=== PATIENT | male | born 1955 | race Caucasian/White ===

== ENCOUNTER 2020-01-17 07:21 | Outpatient (REF) | payer OTHER, SELFPAY ==
--- NOTE | 2020-01-17 07:33 | XR_ITS ---
EXAMINATION: XR KNEE STANDING, BILATERAL XR KNEE, RIGHT CLINICAL INFORMATION: Right knee pain. COMPARISON: AP bilateral knee and right knee 08/26/2019 TECHNIQUE: AP standing bilateral knee 1 view. Right knee 2 views. FINDINGS: AP BILATERAL KNEE: There is a total bilateral arthroplasty with prosthetic components in satisfactory alignment. No prosthetic loosening seen. There are no loose bodies or soft tissue swelling. RIGHT KNEE: There is a total right knee arthroplasty in satisfactory alignment. No prosthetic loosening, joint effusion or loose body seen. There is minimal superficial infrapatellar soft tissue swelling. XR/XR knee standing BI IMPRESSION: Total bilateral knee arthroplasty with prosthetic components in satisfactory alignment. The right knee prosthesis is in satisfactory alignment. There is minimal superficial infrapatellar soft tissue swelling but no suspicion for joint effusion or loose bodies.
--- NOTE | 2020-01-17 07:33 | XR_ITS ---
EXAMINATION: XR KNEE STANDING, BILATERAL XR KNEE, RIGHT CLINICAL INFORMATION: Right knee pain. COMPARISON: AP bilateral knee and right knee 08/26/2019 TECHNIQUE: AP standing bilateral knee 1 view. Right knee 2 views. FINDINGS: AP BILATERAL KNEE: There is a total bilateral arthroplasty with prosthetic components in satisfactory alignment. No prosthetic loosening seen. There are no loose bodies or soft tissue swelling. RIGHT KNEE: There is a total right knee arthroplasty in satisfactory alignment. No prosthetic loosening, joint effusion or loose body seen. There is minimal superficial infrapatellar soft tissue swelling. XR/XR knee RT 2V IMPRESSION: Total bilateral knee arthroplasty with prosthetic components in satisfactory alignment. The right knee prosthesis is in satisfactory alignment. There is minimal superficial infrapatellar soft tissue swelling but no suspicion for joint effusion or loose bodies.
== END 2020-01-17 07:22 | disposition home or self-care (01) ==
LOC: HO.XRAY 07:21
PROVIDERS: PCP Family Medicine; Visit Provider Orthopaedic Surgery
DX: M25.561 Pain in right knee (principal)
CPT/HCPCS: 73560; 73565

== ENCOUNTER 2020-05-10 11:19 | Outpatient (REF) | payer OTHER, SELFPAY ==
[2020-05-10 13:43] LABS: MANUAL DIFF FLAG NO
[2020-05-10 13:48] LABS: Basophils Percent Auto 0.4 % (0-2); Eosinophils Absolute Auto 0.1 X10*3/uL (0.0-0.4); Eosinophils Percent Auto 1.5 % (0-4); Hematocrit 41.2 % (42-52); Hemoglobin 13.6 g/dl (14.0-18.0); Imm Gran Abs Auto 0.02 X10*3/uL (0.00-0.03); Imm Gran Pct Auto 0.3 % (0.0-0.4); Lymphocytes Percent Auto 13.2 % (20-40); Mean Corpuscular Hemoglobin 30.5 pg (27.0-33.0); Mean Corpuscular Volume 92.4 fL (80-98); Mean Platelet Volume 10.5 fL (9.4-12.4); Monocytes Absolute Auto 0.6 X10*3/uL (0.1-1.2); Monocytes Percent Auto 8.8 % (2-11); Neutrophils Absolute Auto 5.4 X10*3/uL (2.0-8.3); Neutrophils Percent Auto 75.8 % (45-73); Platelet Count 228 X10*3/uL (160-400); Red Blood Count 4.46 X10*6/uL (4.60-5.80); Red Cell Distribution Width 13.8 % (11.0-16.0); White Blood Count 7.2 X10*3/uL (4.8-10.8)
[2020-05-10 14:18] LABS: Alanine Aminotransferase 13 U/L (0-40); Aspartate Amino Transferase 24 U/L (5-37)
[2020-05-10 14:35] LABS: Erythrocyte Sedimentation Rate 3 MM/HR (0-15)
== END 2020-05-10 11:20 | disposition home or self-care (01) ==
LOC: HO.10HDL 11:19
PROVIDERS: Absent Provider Orthopaedic Surgery; Visit Provider Family Medicine
DX: E78.00 Pure hypercholesterolemia, unspecified (principal); M25.50 Pain in unspecified joint; Z79.899 Other long term (current) drug therapy
CPT/HCPCS: 36415; 82550; 84450; 84460; 85025; 85652; 86140

== ENCOUNTER 2020-11-09 10:09 | Outpatient (REF) | payer OTHER, SELFPAY ==
[2020-11-09 10:51] LABS: Alanine Aminotransferase 13 U/L (0-40); Aspartate Amino Transferase 19 U/L (5-37); Estimated Glomerular Filt Rate > 60
== END 2020-11-09 10:10 | disposition home or self-care (01) ==
LOC: HO.10HDL 10:09
PROVIDERS: Visit Provider Family Medicine
DX: I10 Essential (primary) hypertension (principal); Z79.899 Other long term (current) drug therapy
CPT/HCPCS: 36415; 82565; 84450; 84460

== ENCOUNTER 2021-12-03 08:16 | Outpatient (REF) | payer MEDICARE, SELFPAY ==
--- NOTE | ~2021-12-03 | XR_ITS ---
EXAMINATION: XR CERVICAL SPINE CLINICAL INFORMATION: Left arm neuropathy COMPARISON: Previous x-ray and MRI of the cervical spine June 2013 TECHNIQUE: 5 views of the cervical spine were obtained. FINDINGS: Bone alignment is normal. No fracture or dislocation is seen. There is degenerative spondylosis and degenerative disc disease at all levels. There is right-sided neuroforaminal narrowing from bony osteophyte from C3-C4 to C7-T1. There is left-sided neuroforaminal narrowing from bony osteophyte from C3-C4 to C6-C7. Prevertebral soft tissues are normal. There is left carotid calcification. XR/XR cervical spine 4V IMPRESSION: Multilevel degenerative changes.
[2021-12-03 08:32] LABS: MANUAL DIFF FLAG NO
[2021-12-03 08:55] LABS: Basophils Percent Auto 0.4 % (0-2); Eosinophils Absolute Auto 0.1 X10*3/uL (0.0-0.4); Hematocrit 43.7 % (42.0-52.0); Hemoglobin 14.7 g/dl (14.0-18.0); Imm Gran Abs Auto 0.03 X10*3/uL (0.00-0.03); Imm Gran Pct Auto 0.6 % (0.0-0.4); Lymphocytes Percent Auto 18.4 % (20-40); Mean Corpuscular HGB Conc 33.6 g/dl (31.0-36.0); Mean Corpuscular Hemoglobin 31.5 pg (27.0-33.0); Mean Corpuscular Volume 93.8 fL (80.0-98.0); Mean Platelet Volume 10.6 fL (9.4-12.4); Monocytes Absolute Auto 0.4 X10*3/uL (0.1-1.2); Monocytes Percent Auto 7.3 % (2-11); Neutrophils Absolute Auto 3.8 x10*3/uL (2.0-8.3); Neutrophils Percent Auto 71.3 % (45-73); Platelet Count 196 X10*3/uL (160-400); Red Blood Count 4.66 X10*6/uL (4.60-5.80); Red Cell Distribution Width 13.5 % (11.0-16.0); White Blood Count 5.4 X10*3/uL (4.8-10.8)
[2021-12-03 09:19] LABS: Alanine Aminotransferase 19 U/L (0-40); Albumin Level 4.2 g/dL (3.5-5.0); Alkaline Phosphatase 73 U/L (39-117); Anion Gap 13 (12-20); Aspartate Amino Transferase 24 U/L (5-37); Bilirubin Total 0.7 mg/dL (0.0-1.0); Blood Urea Nitrogen 19 mg/dL (9-16); Calcium 8.9 mg/dL (8.4-10.2); Carbon Dioxide 26 mmol/L (22-29); Chloride 103 mmol/L (96-108); Cholesterol 159 mg/dL; Estimated Glomerular Filt Rate > 60; Glucose Fasting 110 mg/dL (60-99); HDL Cholesterol 62 mg/dL; LDL Cholesterol Calculated 86 mg/dl; Potassium 4.3 mmol/L (3.3-5.1); Sodium 138 mmol/L (135-145); Total Protein 6.4 g/dL (6.5-8.0); Triglycerides 57 mg/dL
== END 2021-12-03 08:17 | disposition home or self-care (01) ==
LOC: HO.LAB 08:16
PROVIDERS: PCP Family Medicine; Visit Provider Family Medicine
DX: G62.9 Polyneuropathy, unspecified (principal); E78.00 Pure hypercholesterolemia, unspecified; R42 Dizziness and giddiness; Z12.5 Encounter for screening for malignant neoplasm of prostate; Z79.899 Other long term (current) drug therapy
CPT/HCPCS: 36415; 72050; 80053; 80061; 84153; 85025

== ENCOUNTER 2021-12-14 09:37 | Outpatient (REF) | payer MEDICARE, SELFPAY ==
--- NOTE | ~2021-12-14 | XR_ITS ---
EXAMINATION: XR HAND, LEFT CLINICAL INFORMATION: Pain left hand. COMPARISON: None TECHNIQUE: PA, lateral, and oblique views of the left hand. FINDINGS: There is normal bony mineralization. Slight negative ulnar variance. No acute or healing fracture or dislocation or destructive process. Carpus has prominent degenerative changes at the triscaphe joint and mild degenerative changes first carpometacarpal joint. There is subtle widening between the lunate and scaphoid which may suggest ligament tear. There are small erosions between the medial hamate and medial base fifth metacarpal. There are small subchondral cysts involving the triquetrum and the mid carpal navicular. MCP joints show moderate degenerative changes second and third MCP with joint narrowing and osteophytes. There are lesser degenerative changes involving the third finger PIP joint and second DIP joint. XR/XR hand LT min 3V IMPRESSION: 1. Prominent degenerative changes triscaphe joint and lesser 1st CMC. 2. Mild widening between lunate and scaphoid which may suggest ligament tear. 3. Small erosions medial hamate and medial base 5th metacarpal. 4. Degenerative changes second and third MCP joints. Mild degenerative changes first carpometacarpal joint.
== END 2021-12-14 09:38 | disposition home or self-care (01) ==
LOC: HO.XRAY 09:37
PROVIDERS: PCP Family Medicine; Visit Provider Family Medicine
DX: M79.642 Pain in left hand (principal)
CPT/HCPCS: 73130

== ENCOUNTER 2022-02-13 07:29 | Outpatient (REF) | payer MEDICARE, SELFPAY ==
[2022-02-13 08:27] LABS: COVID-19 Test Negative (Negative); IDNOW Serial# BCCEAD1C
== END 2022-02-13 07:30 | disposition home or self-care (01) ==
LOC: HO.LAB 07:29
PROVIDERS: PCP Family Medicine; Referring Provider Family Medicine; Visit Provider Internal Medicine
DX: Z20.822 Contact with and (suspected) exposure to COVID-19 (principal)
CPT/HCPCS: 87635; C9803

== ENCOUNTER 2022-02-13 09:19 | Outpatient (REF) | payer MEDICARE, SELFPAY ==
--- NOTE | ~2022-02-13 | XR_ITS ---
EXAMINATION: XR WRIST, RIGHT CLINICAL INFORMATION: Right wrist pain distal ulna after injury. COMPARISON: None TECHNIQUE: PA, lateral, and oblique views of the right wrist. FINDINGS: The bones and soft tissues are normal. No fracture. There is loss of first carpometacarpal joint space with periarticular spurring. No bony erosive changes. No loose bodies.. No erosions or abnormal soft tissue calcifications. XR/XR wrist RT min 3V IMPRESSION: Mild degenerative changes first carpometacarpal joint. No visible acute fracture, dislocation or subluxation seen.
== END 2022-02-13 09:20 | disposition home or self-care (01) ==
LOC: HO.XRAY 09:19
PROVIDERS: PCP Family Medicine; Visit Provider Family Medicine
DX: S69.91XD Unspecified injury of right wrist, hand and finger(s), subsequent encounter (principal)
CPT/HCPCS: 73110

== ENCOUNTER 2022-12-04 06:24 | Outpatient (REF) | payer MEDICARE, SELFPAY ==
[2022-12-04 06:37] LABS: MANUAL DIFF FLAG NO
[2022-12-04 07:02] LABS: Basophils Percent Auto 0.6 % (0-2); Eosinophils Absolute Auto 0.2 X10*3/uL (0.0-0.4); Eosinophils Percent Auto 2.8 % (0-4); Hematocrit 43.3 % (42.0-52.0); Hemoglobin 14.6 g/dl (14.0-18.0); Imm Gran Abs Auto 0.04 X10*3/uL (0.00-0.03); Imm Gran Pct Auto 0.6 % (0.0-0.4); Lymphocytes Absolute Auto 1.1 X10*3/uL (1.2-4.9); Mean Corpuscular HGB Conc 33.7 g/dl (31.0-36.0); Mean Corpuscular Hemoglobin 32.4 pg (27.0-33.0); Mean Platelet Volume 9.9 fL (9.4-12.4); Monocytes Absolute Auto 0.6 X10*3/uL (0.1-1.2); Monocytes Percent Auto 8.9 % (2-11); Neutrophils Absolute Auto 4.7 x10*3/uL (2.0-8.3); Neutrophils Percent Auto 70.1 % (45-73); Platelet Count 233 X10*3/uL (160-400); Red Blood Count 4.51 X10*6/uL (4.60-5.80); Red Cell Distribution Width 14.5 % (11.0-16.0); White Blood Count 6.7 X10*3/uL (4.8-10.8)
[2022-12-04 07:07] LABS: Estimated Average Glucose 100 mg/dL; Hemoglobin A1c % 5.1 % (<6.0)
[2022-12-04 07:25] LABS: Alanine Aminotransferase 24 U/L (0-40); Alkaline Phosphatase 80 U/L (39-117); Anion Gap 12 (12-20); Aspartate Amino Transferase 25 U/L (5-37); Bilirubin Total 0.4 mg/dL (0.0-1.0); Blood Urea Nitrogen 20 mg/dL (9-16); Calcium 9.4 mg/dL (8.4-10.2); Carbon Dioxide 26 mmol/L (22-29); Chloride 106 mmol/L (96-108); Estimated Glomerular Filt Rate > 60; Glucose Fasting 109 mg/dL (60-99); Sodium 139 mmol/L (135-145); Total Protein 6.3 g/dL (6.5-8.0)
[2022-12-04 07:32] LABS: Free T4 (Free Thyroxine) 1.04 ng/dL (0.71-1.85); Thyroid Stimulating Hormone 1.37 uIU/mL (0.32-4.0)
[2022-12-04 07:42] LABS: Erythrocyte Sedimentation Rate 1 MM/HR (0-15)
[2022-12-04 09:22] LABS: Appearance Urine Clear; Color Urine Yellow; Glucose Urine UA Negative (Negative); Leukocyte Esterase Urine Negative (Negative); Nitrite Urine Negative (Negative); Urine Blood Negative (Negative); Urine Ketones Negative (Negative); Urine Protein Negative (Neg-Trace)
== END 2022-12-04 06:25 | disposition home or self-care (01) ==
LOC: HO.LAB 06:24
PROVIDERS: PCP Family Medicine; Visit Provider Family Medicine
DX: R63.4 Abnormal weight loss (principal); R53.83 Other fatigue; E78.00 Pure hypercholesterolemia, unspecified; Z79.899 Other long term (current) drug therapy
CPT/HCPCS: 36415; 80053; 81003; 82550; 83036; 84439; 84443; 85025; 85652

== ENCOUNTER 2022-12-19 14:57 | Outpatient (AMB) | payer MEDICARE, SELFPAY ==
--- NOTE | 2022-12-19 14:59 | A.OFFVIS_ITS ---
Intake Vital Signs 12/19/22 15:05 Height 5 ft 10 in Weight 164 lb BMI 23.5 BP 104/63 Blood Pressure Location Lt brachial Position Sitting Pulse 65 Intake Visit Reasons: left inguinal hernia Intake Note: This patient presents for an assessment for left inguinal hernia. Patient c/o; Onset 12/13/22, reports bulge, reports burning sensation when sitting, reports pain. Sheriff Sergeant Required: No Accompanied by: Self / Same As Patient Allergies penicillin V Allergy (Unknown, Verified 12/19/22 15:03) Unknown Penicillins [PENICILLINS] Allergy (Unknown, Unverified 12/19/22 15:03) UNKNOWN-CHILDHOOD REACTION Medication List - Last Reconciled 12/19/22 by Chas Alva MD celecoxib 400 mg PO DAILY simvastatin 40 mg PO BEDTIME HPI left inguinal hernia HPI Details 67-year-old male referred for a left ing uinal hernia. He says that he was lifting lot of heavy about a week ago and he noted a sudden bowel on the left. He had been noticing a bulge on the area periodically especially with exertion. This is reducible but he does complain of discomfort He says he is familiar with a groin hernia as he had a right hernia repaired almost 20 years ago. He denies GI complaints. He says that he is still very active and plays ice hockey frequently. [facility] Medical History (Updated 12/19/22 @ 15:23 by Chas Alva MD) Left inguinal hernia Arthritis Surgical History History of hernia repair Hx of surgical procedure Social History Alcohol intake: unknown Patient Tobacco Use Status: Tobacco use Unknown Review of Systems Const Denies chills and Denies fever(s) Card Denies chest pain, Denies dyspnea and Denies dyspnea on exertion Resp Denies cough, Denies dyspnea and Denies dyspnea on exertion GI Denies hematochezia and Denies change in bowel habits Denies hematuria and Denies difficulty urinating Musc Denies back pain and Denies limited range of motion Neuro Denies focal weakness and Denies convulsions Psych Denies depression and Denies mood swings Physical Exam Vital Signs: Last Vital Signs Pulse 65 12/19/22 15:05 BP 104/63 12/19/22 15:05 BMI result Body Mass Index 23.5 Const General: comfortable and no acute distress Orientation/consciousness: patient oriented x3 Neck Neck: Yes no lymphadenopathy Resp Auscultation: clear to auscultation bilaterally Cardio Rhythm: regular rhythm GI Other: Reducible left inguinal hernia, more prominent with Valsalva, nontender Palpation (GI): Soft to palpation, nontender and no guarding Neuro General: patient oriented x3 Assessment & Plan Assessment & Plan (1) Left inguinal hernia: Code(s): K40.90 - Unilateral inguinal hernia, without obstruction or gangrene, not specified as recurrent Plan: I reviewed with the technique of repair of the left inguinal hernia with mesh placement. I explained the risks including but not limited to bleeding, infections bowel injury, injury to the vas deferens or the testicle recurrence, postop pain, as well as the benefits and alternatives. I explained to him what to expect postoperatively. He says he understands and wants to proceed. Coding Level of Care Code New Pt Level 3 (81069) Diagnoses Left inguinal hernia K40.90
[2022-12-19 15:05] VITALS: BP 104/63; PULSE 65; BMI 23.5
== END 2022-12-19 15:21 | disposition home or self-care (01) ==
PROVIDERS: PCP Family Medicine; Visit Provider Surgery
DX: K40.90 Unilateral inguinal hernia, without obstruction or gangrene, not specified as recurrent (principal)
CPT/HCPCS: 99203

== ENCOUNTER → 2022-12-19 14:57 | Outpatient (BNVA) | payer MEDICARE, SELFPAY | PROVIDERS: PCP Family Medicine; Visit Provider Surgery | DX: K40.90 Unilateral inguinal hernia, without obstruction or gangrene, not specified as recurrent (principal) | CPT/HCPCS: 99202; J0665; J1100 ==

== ENCOUNTER 2022-12-23 11:31 | Outpatient (AMB) | payer MEDICARE, SELFPAY ==
[2022-12-23 11:41] VITALS: BP 112/66; PULSE 67; BMI 23.5
--- NOTE | 2022-12-23 11:41 | MHC.OFFVIS ---
Intake Vital Signs 12/23/22 11:41 Height 5 ft 10 in Weight 164 lb BMI 23.5 BP 112/66 Blood Pressure Location Lt brachial Position Sitting Pulse 67 Intake Visit Reasons: Rt abdominal pain ? hernia Intake Note: This patient presents for an assessment for right lower inguinal pain. Patient c/o; reports right groin pain, ? hernia. Digital Solution Architect Required: No Accompanied by: Self / Same As Patient Allergies penicillin V Allergy (Unknown, Verified 12/23/22 11:49) Unknown Penicillins [PENICILLINS] Allergy (Unknown, Unverified 12/23/22 11:49) UNKNOWN-CHILDHOOD REACTION Medication List - Last Reconciled 12/23/22 by Chas Alva MD celecoxib 400 mg PO DAILY simvastatin 40 mg PO BEDTIME HPI Rt abdominal pain ? hernia HPI Details He is scheduled for repair of a left inguinal hernia in 1 month. I had just seen him last week for this. He says that 2 days ago, he had noticed some pain on suprapubic area as well along as right groin. He wanted to make sure that he did not have hernia on the right side to call the office this morning this checked. He denies any palpable mass on the right groin. He does have a history of a right inguinal hernia repair in 2003. [facility] Medical History (Updated 12/23/22 @ 12:00 by Chas Alva MD) Right groin pain Left inguinal hernia Arthritis Surgical History History of hernia repair Hx of surgical procedure Social History Alcohol intake: unknown Patient Tobacco Use Status: Tobacco use Unknown Review of Systems Const Denies chills and Denies fever(s) Card Denies chest pain, Denies dyspnea and Denies dyspnea on exertion Resp Denies cough, Denies dyspnea and Denies dyspnea on exertion GI Denies hematochezia and Denies change in bowel habits Denies hematuria and Denies difficulty urinating Musc Denies back pain and Denies limited range of motion Neuro Denies focal weakness and Denies convulsions Psych Denies depression and Denies mood swings Physical Exam Vital Signs: Last Vital Signs Pulse 67 12/23/22 11:41 BP 112/66 12/23/22 11:41 BMI result Body Mass Index 23.5 Const General: comfortable and no acute distress Resp Effort & Inspection: normal respiratory effort Cardio Rate: regular rate GI Other: Soft, no palpable mass on the right groin even with Valsalva. Reducible mass on the left groin Assessment & Plan Assessment & Plan (1) Right groin pain: Code(s): R10.31 - Right lower quadrant pain Plan: Current exam does not reveal any palpable mass even with Valsalva. I told him that his right groin pain and suprapubic pain may be an extension office on the left groin with this large reducible inguinal hernia. We will proceed with left inguinal hernia repair. I did tell him that we will continue to monitor groin as well down the line. Coding Level of Care Code Est Pt Level 2 (71745) Diagnoses Right groin pain R10.31
== END 2022-12-23 11:57 | disposition home or self-care (01) ==
PROVIDERS: PCP Family Medicine; Visit Provider Surgery
DX: R10.31 Right lower quadrant pain (principal)
CPT/HCPCS: 99212

== ENCOUNTER → 2022-12-23 11:31 | Outpatient (BNVA) | payer MEDICARE, SELFPAY | PROVIDERS: PCP Family Medicine; Visit Provider Surgery | DX: R10.31 Right lower quadrant pain (principal); K40.90 Unilateral inguinal hernia, without obstruction or gangrene, not specified as recurrent | CPT/HCPCS: 99212 ==

== ENCOUNTER 2022-12-31 09:22 | Day surgery (SDC) | payer MEDICARE, SELFPAY ==
[2022-12-27 13:38] VITALS: BMI 23.5
[2022-12-31] MEDS: Lactated Ringers 1,000 ML 100 ML IVCONT (09:39)
[2022-12-31 09:50] VITALS: BP 127/79; PULSE 57; RESP 18; TEMP 36.8; O2SAT 96
--- NOTE | 2022-12-31 10:48 | MHC.SHP ---
Pre-Procedural Eval Section A Date of Service: 12/31/22 The patient is an INPATIENT: No Changes since office visit: No Cold of Flu in the past 2 weeks, No New Medical Problems, No Changes in Medication and No Patient answered all questions The History & Physical has been completed within 30 days and I have reviewed it.: Yes Section B Chief Complaint: Unilateral inguinal hernia, without obstruction or Allergies: Allergies Allergy/AdvReac Type Severity Reaction Status Date / Time Penicillins [PENICILLINS] Allergy Unknown UNKNOWN-CHILDHOOD Verified 12/31/22 09:33 REACTION amitriptyline [From Elavil] AdvReac Intermediate Drowsy Verified 12/31/22 09:33 Plan I have reviewed the history and physical and performed a pertinent physical examination on my patient. No changes have occurred unless specified. Time Spent With Patient Time: Total time managing care of this patient today ____ minutes.
--- NOTE | 2022-12-31 10:55 | P.CONAN_ITS ---
Documented by User: Kaitlin Bullock NP 12/30/22 09:19 HPI - Anesthesia Eval Consult details Narrative: 67yo M for Left Open Hernia Repair Inguinal w/mesh PMFSH Active Problems Active Problems: All Active Problems (Updated 12/27/22 @ 13:38 by Sheila Monroy RN) Right groin pain (Acute) Left inguinal hernia (Acute) Arthritis (Acute) Past Medical History Medical History PVC (premature ventricular contraction) Tremor Eczema Osteoarthritis Cervical radiculopathy Chronic back pain Elevated cholesterol Right groin pain Left inguinal hernia Arthritis Surgical History Surgical History Hx of total knee arthroplasty History of surgery Hx of carpal tunnel repair Hx of shoulder surgery Hx of arthroscopic knee surgery H/O colonoscopy History of hernia repair Social History Social History Alcohol intake: unknown Patient Tobacco Use Status: Never used Tobacco Are you DNR?: No Advance Directives: No Advance Directives Information Provided: Yes Nutrition Risks: No Nutritional Risk Meds Allergies Allergy/AdvReac Type Severity Reaction Status Date / Time Penicillins [PENICILLINS] Allergy Unknown UNKNOWN-CHILDHOOD Verified 12/31/22 09:33 REACTION amitriptyline [From Elavil] AdvReac Intermediate Drowsy Verified 12/31/22 09:33 Home Medications Medication Instructions Recorded Confirmed Last Taken Type celecoxib 400 mg capsule 400 mg PO DAILY 12/19/22 12/27/22 Unknown History simvastatin 40 mg tablet 40 mg PO BEDTIME 12/19/22 12/27/22 Unknown History Exam Exam Date and Time: December 30, 2022 0918 Height,Weight and Vital Signs: Height 5 ft 10 in Weight 74.389 kg Pertinent Lab Results Pertinent Lab Results: Laboratory Tests 12/04/22 06:36 WBC 6.7 Hgb 14.6 Hct 43.3 Plt Count 233 Sodium 139 Potassium 5.0 Chloride 106 Carbon Dioxide 26 BUN 20 H Creatinine 0.82 Assessment and Plan Assessment Anesthesia Assessment: Chart Reviewed Documented by User: Rebekah Alfaro DO 12/31/22 11:00 [facility] Past Medical History Medical History PVC (premature ventricular contraction) Tremor Eczema Osteoarthritis Cervical radiculopathy Chronic back pain Elevated cholesterol Right groin pain Left inguinal hernia Arthritis Family History Family history of problems with anesthesia: No Surgical History Surgical History Hx of total knee arthroplasty History of surgery Hx of carpal tunnel repair Hx of shoulder surgery Hx of arthroscopic knee surgery H/O colonoscopy History of hernia repair History of Problems with Anesthesia: No Social History Social History Alcohol intake: unknown Patient Tobacco Use Status: Never used Tobacco Are you DNR?: No Advance Directives: No Advance Directives Information Provided: Yes Nutrition Risks: No Nutritional Risk Meds Allergies Allergy/AdvReac Type Severity Reaction Status Date / Time Penicillins [PENICILLINS] Allergy Unknown UNKNOWN-CHILDHOOD Verified 12/31/22 09:33 REACTION amitriptyline [From Elavil] AdvReac Intermediate Drowsy Verified 12/31/22 09:33 Home Medications Medication Instructions Recorded Confirmed Last Taken Type celecoxib 400 mg capsule 400 mg PO DAILY 12/19/22 12/27/22 Unknown History simvastatin 40 mg tablet 40 mg PO BEDTIME 12/19/22 12/27/22 Unknown History Exam Exam Date and Time: December 31, 2022 1057 Height,Weight and Vital Signs: Height 5 ft 10 in Weight 74.389 kg Vital Signs Temperature 98.2 F 12/31/22 09:50 Pulse Rate 57 12/31/22 09:50 Respiratory Rate 18 12/31/22 09:50 Blood Pressure 127/79 12/31/22 09:50 Pulse Oximetry 96 12/31/22 09:50 Oxygen Delivery Method Room Air 12/31/22 09:50 Temperature 98.2 F 12/31/22 09:50 Pulse Rate 57 12/31/22 09:50 Respiratory Rate 18 12/31/22 09:50 Blood Pressure 127/79 12/31/22 09:50 Pulse Oximetry 96 12/31/22 09:50 Oxygen Delivery Method Room Air 12/31/22 09:50 Airway Mallampati Class: I TM Dist: >3cm Neck ROM: Full Loose/Missing/Broken Teeth: No (patient denies) Heart: S1S2 Lungs: CTAB Assessment and Plan Assessment Anesthesia Assessment: Anesthesia Plan Discussed and Chart Reviewed Final Anesthetic Review Family History of Problems with Anesthesia: No History of Problems with Anesthesia: No NPO: Yes ASA Class: II Final Preanesthetic Review: No Changes in Pt Med Stat, Meds/Allgs Chart Reviewed, Consent Obtained/Reviewed and Anes Risks/Benef Reviewed Patient Risk: Low Procedure Risk: Low Anesthetic Plan Anesthetic Plan: GA and Agree w/ Assess. and Plan Disposition: Standard PACU
--- NOTE | 2022-12-31 11:39 | P.OP_ITS ---
Operative Note Operative Note Date of Service: 12/31/22 Narrative: Preop diagnosis: Left inguinal hernia Postop diagnosis: Left inguinal hernia, direct Procedure: Repair of a left inguinal hernia with mesh Surgeon: Chas Alva MD virtual assistant for advertisers: MARTI Patterson The patient is a 67-year-old male with a reducible mass on the left groin consistent with a left inguinal hernia. He understood the technique of repair with mesh. He was aware of the risks, benefits, and alternatives. He was brought to the operating room. He was placed supine under general anesthesia via laryngeal mask airway. The left groin area had been prepped and draped in the usual sterile fashion. A surgical time-out was done. The patient received cefazolin 2 g IV preoperatively. I infiltrated the planned line of incision with lidocaine 1%. I made a short incision on the skin along an imaginary line from the anterior superior iliac spine to the pubic ramus using blade 15. This was carried down through the full- thickness of the skin subcutaneous fat with electr cautery until I was able to see the external oblique aponeurosis and the external ring. I gently defined the external ring using gauze. I made an incision on the axilla oblique but neurosis overlying this inguinal canal using a blade 15 and extended this inferomedially to connect with external ring using an open tipped pair of scissors. I bluntly dissected the underside of the aponeurosis to create space for the mesh. I then proceeded to identify the cord and its contents. I bluntly dissected the cord with my index finger until was able to pass a Lipan drain around this. This Lipan drain was used for retraction. I examined the cord. The sac was seen to be on the floor of the canal itself consistent with a direct hernia. This was easily from the rest of the cord contents. I was able to visualize the vas deferens and the accompanying vessels. I proceeded to gently separate the sac the rest of the cord contents, carefully protecting the vas deferens and its accompanying vessels. I reinforced the Defect on the floor of the canal with a medium-sized Prolene plug. The plug was secured to the shelving edge of the inguinal ligament laterally and the internal oblique superiorly and medially using the inner leaves of the plug. I then reinforced the entire floor of the canal with a keyhole mesh. The tails of the mesh were passed around the cord at the level of the internal ring and were secured together with Prolene 2 sutures. I flattened the mesh. I secured the mesh to the shelving edge of the inguinal meant laterally, and the internal oblique superiorly medially as well as the pubic ramus inferomedially with Prolene 2 sutures. I reirrigated. I observed for hemostasis. Once hemostasis was confirmed, I proceeded to then close the external oblique aponeurosis with a running Polysorb 2-0 stitch to re-create the external ring. The subcutaneous layer was reapposed with Polysorb 3-0 interrupted sutures. Skin closure was achieved with Polysorb 4-0 subcuticular running stitch. The incision was infiltrated with Marcaine 0.5% for postop analgesia. Dressings were applied. The procedure was completed. The patient tolerated the procedure well. There were no immediate complications. Initial and final counts of sponges and instruments were correct. Estimated blood loss was about 10 cc. The patient was extubated without difficulty and transferred to the recovery room with stable vital signs.
[2022-12-31 11:56] VITALS: BP 141/90; PULSE 74; RESP 16; TEMP 36.3; O2SAT 99
[2022-12-31 12:01] VITALS: BP 136/82; PULSE 61; RESP 16; O2SAT 97
[2022-12-31 12:06] VITALS: BP 124/79; PULSE 63; RESP 16; O2SAT 96
[2022-12-31 12:11] VITALS: BP 127/73; PULSE 55; RESP 16; TEMP 36.5; O2SAT 97
[2022-12-31] MEDS: Acetaminophen 325 MG TABLET 650 MG PO (12:17)
[2022-12-31] MEDS: oxyCODONE HCl Immed Release 5 MG TABLET 10 MG PO (12:17)
[2022-12-31 12:26] VITALS: BP 123/78; PULSE 56; RESP 16; TEMP 36.4; O2SAT 96
== END 2022-12-31 13:08 | disposition home or self-care (01) ==
PROVIDERS: PCP Family Medicine; Visit Provider Surgery
PROC: (CPT 49505; principal; 2022-12-31 11:30)
DX: K40.90 Unilateral inguinal hernia, without obstruction or gangrene, not specified as recurrent (principal); G89.29 Other chronic pain; M54.9 Dorsalgia, unspecified; M54.12 Radiculopathy, cervical region; E78.00 Pure hypercholesterolemia, unspecified; R10.31 Right lower quadrant pain; I49.3 Ventricular premature depolarization; R25.1 Tremor, unspecified; M19.90 Unspecified osteoarthritis, unspecified site; Z79.899 Other long term (current) drug therapy; Z88.0 Allergy status to penicillin; Z88.8 Allergy status to other drugs, medicaments and biological substances; Z98.890 Other specified postprocedural states
CPT/HCPCS: 49505; C1781; J0690; J1100; J1885; J2405; J2704; J2795; J3010

== ENCOUNTER → 2022-12-31 09:22 | Outpatient (BNV) | payer MEDICARE, SELFPAY | PROVIDERS: PCP Family Medicine; Visit Provider Surgery | DX: K40.90 Unilateral inguinal hernia, without obstruction or gangrene, not specified as recurrent (principal) | CPT/HCPCS: 49505 ==

== ENCOUNTER 2023-01-04 06:03 | Emergency (ER) | payer MEDICARE, SELFPAY ==
--- NOTE | ~2023-01-04 | CT_ITS ---
EXAMINATION: CT HEAD WITHOUT CONTRAST CLINICAL INFORMATION: Headache COMPARISON: CT head 06/26/2016 TECHNIQUE: Contiguous axial imaging was performed from the skull base to vertex without intravenous administration of contrast. This CT examination was performed using dose optimization techniques as appropriate, variously including the following: *Automated exposure control *Adjustment of mA and/or kV according to patient size (this includes techniques or standardized protocols for targeted exams where dose is matched to indication/reason for exam; i.e. extremities or head) *Use of iterative reconstruction technique DLP: 6 6 6 mGy-cm FINDINGS: There is no evidence of acute intracranial hemorrhage or edematous territorial infarction. No abnormal mass effect or midline shift is seen. [place] to white matter differentiation is well preserved. No extra-axial fluid collections are identified. The ventricles are normal in size. No abnormal attenuation in the brain parenchyma. No acute calvarial fracture.. Redemonstrated is under pneumatization of the right mastoid air cells. Paranasal sinuses and left mastoid air cells are well-aerated. CT/CT head/brain wo IV con IMPRESSION: No CT evidence of acute intracranial hemorrhage or edematous territorial infarction.
[2023-01-04 06:05] VITALS: BP 141/96; PULSE 71; RESP 18; TEMP 36.6; O2SAT 98; BMI 21.7
--- NOTE | 2023-01-04 07:01 | ED_ITS ---
HPI - Nausea/Vomiting/Diarrhea General Chief complaint: Headache Stated complaint: Hernia operation 4 days ago/ pain all over Time Seen by Provider: 01/04/23 07:00 Source: patient Mode of arrival: ambulatory Limitations: no limitations History of Present Illness HPI Narrative: 67 yo male with PMH of arthritis, just had left inguinal hernia repair here on Friday - did well went home on Friday night has no issues with hernia repair feels he is improving stopped taking narcotics on Friday. He notes Friday night however at rest he started with a severe R sided headache. He has not had a fever. He has photophobia n/v. No neck trauma or head trauma. He states this has never happened before. He did have headaches about 5 years ago but not like this. MD elicited complaint: nausea, vomiting and other (headache. ) Onset (ago): day(s) (4) Description of vomiting: watery Associated nausea: Yes Associated abdominal pain: No Location of pain: other (R sided headache) Pain consistency: constant Severity: severe Quality: stabbing Exacerbating factors: other (bright light noise) Context: other (recent surgery ) Associated symptoms: nausea/vomiting and other (photophobia) Related Data Home Medications Medication Instructions Recorded Confirmed celecoxib 400 mg capsule 400 mg PO DAILY 12/19/22 12/27/22 simvastatin 40 mg tablet 40 mg PO BEDTIME 12/19/22 12/27/22 Previous Rx's Medication Instructions Recorded oxycodone-acetaminophen 5 mg-325 1 tab PO Q4-6H PRN pain #30 tabs 12/31/22 mg tablet (Percocet) ondansetron 4 mg disintegrating 4 mg PO Q8H PRN nausea and 01/04/23 tablet vomiting #20 tabs Allergies Allergy/AdvReac Type Severity Reaction Status Date / Time No Known Allergies Allergy Verified 01/04/23 06:13 Review of Systems 2 Review of Systems: Constitutional : No Fever, No Chills, No Fatigue ENT/Mouth : No sore throat, No Rhinorrhea Eyes: pos Eye Pain, No Swelling, No Redness Cardiovascular : No Chest Pain, No SOB, No Dyspnea on Exertion Respiratory : No Cough, No Sputum Gastrointestinal : pos Nausea, pos Vomiting, No Diarrhea, No abdominal Pain Genitourinary : No Dysuria, No Urinary Frequency, No Hematuria, Musculoskeletal : No joint pain, No Myalgias, No Joint Swelling Skin : No Skin Lesions, No rash Neuro : No Weakness, No Numbness, No Dizziness, positive Headache Psych : No Anxiety/Panic, No Depression Heme/Lymph: No Bruising, No Bleeding,No Lymphadenopathy Endocrine : No Polyuria, No Polydipsia All other systems reviewed and are negative Gastrointestinal: Gastrointestinal: Reports nausea PMFSH Past Medical History Attestation statement: The following information was validated with the patient. Source: old records reviewed Medical History PVC (premature ventricular contraction) Tremor Eczema Osteoarthritis Cervical radiculopathy Chronic back pain Elevated cholesterol Right groin pain Left inguinal hernia Arthritis Surgical History Hx of total knee arthroplasty History of surgery Hx of carpal tunnel repair Hx of shoulder surgery Hx of arthroscopic knee surgery H/O colonoscopy History of hernia repair Social History Social History Alcohol intake: unknown Patient Tobacco Use Status: Never used Tobacco Smoked in Last 30 Days: No Use of substances other than those prescribed or required for medical reasons: No Advance Directives: No Advance Directives Information Provided: Yes Physical Exam 2 Vital Signs: Vital Signs: Last Vital Signs Temp 97.9 F 01/04/23 06:05 Pulse 50 01/04/23 10:05 Resp 16 01/04/23 10:05 BP 137/87 01/04/23 10:05 Pulse Ox 98 01/04/23 06:05 O2 Del Method Room Air 01/04/23 06:05 BMI result Body Mass Index 21.7 Appearance: Alert. Oriented X3. No acute distress. Eyes: Pupils equal, round and reactive to light. ENT: Pharynx normal. Neck: Normal inspection. Neck supple. no meningeal signs CVS: Normal heart rate and rhythm. Pulses normal. Respiratory: No respiratory distress. Breath sounds normal. Abdomen: Soft and nontender. incisions c/d/i healing well Skin: Skin warm and dry. Normal skin color. Normal skin turgor. Extremities: No lower extremity edema. No calf ttp Neuro: Oriented X 3. No motor deficit. No sensory deficit. Medications Administered Discontinued Medications Generic Name Dose Route Start Last Admin Trade Name Freq PRN Reason Stop Dose Admin Droperidol 1.25 mg 01/04/23 07:18 01/04/23 09:00 Droperidol 5 Mg/2 Ml Vial IVPUSH 01/04/23 07:19 1.25 mg ONCE ONE Administration Sodium Chloride 1,000 mls @ 999 mls/hr 01/04/23 07:30 01/04/23 09:25 Ns IV 01/04/23 08:30 Infused .Q1H1M CM Infusion Ketorolac Tromethamine 15 mg 01/04/23 09:24 01/04/23 09:59 Ketorolac Tromethamine 15 Mg/Ml Vial IVPUSH 01/04/23 09:25 15 mg ONCE ONE Administration Morphine Sulfate 4 mg 01/04/23 09:24 01/04/23 10:29 Morphine Sulfate 4 Mg/Ml Cartridge IVPUSH 01/04/23 09:25 Not Given ONCE ONE Protocol Medical Decision Making Medical Decision Making [facility] Narrative: 67 yo male with PMH of recent inguinal hernia repair and the night after surgery developed acute R sided headache while at rest - at this time he is neuro intact, no fevers, no blood thinners, no meningeal signs - will obtain basic labs, ESR, CT head to rule out mass - SAH less likely given duration. IVF and medications. Could be related to anesthesia as well. Differential Diagnosis Differential Diagnoses: The differential diagnosis associated with the presentation includes viral syndrome, tension headache, post anesthesia headache, mass Admission/Observation Consideration of admission/observation: Escalation of care including admission/observation considered headache improved, tolerating PO, no ICH, ESR negative, labs reassuring Lab Data [facility] Lab Attestation statement: I reviewed the patient's lab results. 01/04/23 07:50 01/04/23 07:50 Labs: Lab Results 01/04/23 01/04/23 Range/Units 07:45 07:50 WBC 8.0 (4.8-10.8) X10*3/uL RBC 5.19 (4.60-5.80) X10*6/uL Hgb 16.7 (14.0-18.0) g/dl Hct 48.3 (42.0-52.0) % MCV 93.1 (80.0-98.0) fL MCH 32.2 (27.0-33.0) pg MCHC 34.6 (31.0-36.0) g/dl RDW 13.9 (11.0-16.0) % Plt Count 219 (160-400) X10*3/uL MPV 10.0 (9.4-12.4) fL Immature Gran % (Auto) 0.5 H (0.0-0.4) % Neut % (Auto) 79.5 H (45-73) % Lymph % (Auto) 11.7 L (20-40) % [place] % (Auto) 6.9 (2-11) % Eos % (Auto) 1.0 (0-4) % Baso % (Auto) 0.4 (0-2) % Lymph # (Auto) 0.9 L (1.2-4.9) X10*3/uL [place] # (Auto) 0.6 (0.1-1.2) X10*3/uL Eos # (Auto) 0.1 (0.0-0.4) X10*3/uL Baso # (Auto) 0.0 (0.0-0.2) X10*3/uL Abs Immat Gran (auto) 0.04 H (0.00-0.03) X10*3/uL Absolute Neuts (auto) 6.3 (2.0-8.3) x10*3/uL Absolute Nucleated RBC 0.000 (0.0-0.012) X10*3/uL Nucleated RBC % (auto) 0.0 (0.0-0.2) /100WBC ESR 2 (0-15) MM/HR Hold Purple Top SEE NOTE Sodium 141 (135-145) mmol/L Potassium 5.0 (3.3-5.1) mmol/L Chloride 104 (96-108) mmol/L Carbon Dioxide 29 (22-29) mmol/L Anion Gap 13 (12-20) BUN 20 H (9-16) mg/dL Creatinine 0.86 (0.5-1.4) mg/dL Estim Creat Clear Calc 81.8 Estimated GFR > 60 Random Glucose 118 H (60-115) mg/dL Calcium 9.7 (8.4-10.2) mg/dL Total Bilirubin 0.6 (0.0-1.0) mg/dL AST 22 (5-37) U/L ALT 18 (0-40) U/L Alkaline Phosphatase 74 (39-117) U/L Total Protein 7.0 (6.5-8.0) g/dL Albumin 4.2 (3.5-5.0) g/dL COVID-19 (MAX) Negative (Negative) COVID-19 Clin Com See Note Independent Interpretation I performed an independent interpretation of an: CT Scan (no mass or ICH) Radiology Impression Discussion of test interpretation with radiology: I have reviewed the radiologist's reading. External Record Review External record reviewed: Inpatient record Prescription Management I considered prescription management with: Other Discharge Plan Discharge Clinical Impression: Headache Qualifiers: Headache type: unspecified Headache chronicity pattern: acute headache I ntractability: not intractable Qualified Code(s): R51.9 - Headache, unspecified Vomiting Qualifiers: Vomiting type: unspecified Nausea presence: with nausea Qualified Code(s): R 11.2 - Nausea with vomiting, unspecified Patient Disposition: Home, Self-Care Instructions: Acute Headache (ED), Acute Nausea and Vomiting (ED) Additional Instructions: return for worsening abdominal pain, vomiting, fevers, neck pain, confusion, vision changes or any other concerns. Prescriptions: New ondansetron 4 mg tablet,disintegrating 4 mg PO Q8H PRN (Reason: nausea and vomiting) Qty: 20 0RF No Action oxycodone-acetaminophen [Percocet] 5-325 mg tablet 1 tab PO Q4-6H PRN (Reason: pain) Qty: 30 0RF Rx Instructions: Partial Fill upon patient request. simvastatin 40 mg tablet 40 mg PO BEDTIME celecoxib 400 mg capsule 400 mg PO DAILY
[2023-01-04 07:55] LABS: MANUAL DIFF FLAG NO
[2023-01-04 08:03] LABS: Basophils Percent Auto 0.4 % (0-2); Eosinophils Absolute Auto 0.1 X10*3/uL (0.0-0.4); Hematocrit 48.3 % (42.0-52.0); Hemoglobin 16.7 g/dl (14.0-18.0); Imm Gran Abs Auto 0.04 X10*3/uL (0.00-0.03); Imm Gran Pct Auto 0.5 % (0.0-0.4); Lymphocytes Absolute Auto 0.9 X10*3/uL (1.2-4.9); Lymphocytes Percent Auto 11.7 % (20-40); Mean Corpuscular HGB Conc 34.6 g/dl (31.0-36.0); Mean Corpuscular Hemoglobin 32.2 pg (27.0-33.0); Mean Corpuscular Volume 93.1 fL (80.0-98.0); Monocytes Absolute Auto 0.6 X10*3/uL (0.1-1.2); Monocytes Percent Auto 6.9 % (2-11); Neutrophils Absolute Auto 6.3 x10*3/uL (2.0-8.3); Neutrophils Percent Auto 79.5 % (45-73); Platelet Count 219 X10*3/uL (160-400); Red Blood Count 5.19 X10*6/uL (4.60-5.80); Red Cell Distribution Width 13.9 % (11.0-16.0)
[2023-01-04 08:10] LABS: Alanine Aminotransferase 18 U/L (0-40); Albumin Level 4.2 g/dL (3.5-5.0); Alkaline Phosphatase 74 U/L (39-117); Anion Gap 13 (12-20); Aspartate Amino Transferase 22 U/L (5-37); Bilirubin Total 0.6 mg/dL (0.0-1.0); Blood Urea Nitrogen 20 mg/dL (9-16); Calcium 9.7 mg/dL (8.4-10.2); Carbon Dioxide 29 mmol/L (22-29); Chloride 104 mmol/L (96-108); Creatinine Clr Calc Pharmacy 81.8; Estimated Glomerular Filt Rate > 60; Glucose Random 118 mg/dL (60-115); Sodium 141 mmol/L (135-145)
[2023-01-04] MEDS: 0.9 % Sodium Chloride 1,000 ML 999 ML IV (08:19)
[2023-01-04 08:24] LABS: COVID-19 Test Negative (Negative); IDNOW Serial# 08D9AD1C
[2023-01-04 08:52] LABS: Erythrocyte Sedimentation Rate 2 MM/HR (0-15)
[2023-01-04] MEDS: droPERidol 5 MG/2 ML VIAL 1.25 MG IVPUSH (09:00)
--- NOTE | 2023-01-04 09:16 | PC.NURSE ---
assumed care of pt at 0700. pt a&o x4, pleasant, calm, and cooperative. labs drawn and sent by tech. 20G IV placed to RAC. pt medicated per apr. pt given urinal for UA, sts recent hernia repair and having pain with ambulation. rr even/unlabored. pt offers no other complaints karely. call shankar within pt reach. plan of care ongoing.
[2023-01-04] MEDS: Ketorolac Tromethamine 15 MG/ML VIAL IVPUSH (09:59)
[2023-01-04 10:05] VITALS: BP 137/87; PULSE 50; RESP 16
--- NOTE | 2023-01-04 10:37 | PC.NURSE ---
pt refused morphine, sts hx of it making him nauseous/sick. pt given toradol per mar. sts pain relief is enough. MD aware.
== END 2023-01-04 11:15 | disposition home or self-care (01) ==
PROVIDERS: Emergency Provider Emergency Medicine; PCP Family Medicine
DX: R51.9 Headache, unspecified (principal); R11.2 Nausea with vomiting, unspecified; Z11.52 Encounter for screening for COVID-19
CPT/HCPCS: 36415; 70450; 80053; 85025; 85652; 87635; 96361; 96374; 96375; 99284; J1790; J1885

== ENCOUNTER 2023-01-13 09:13 | Outpatient (AMB) | payer MEDICARE, SELFPAY ==
--- NOTE | 2023-01-13 09:14 | MHC.OFFVIS ---
Intake Vital Signs 01/13/23 09:20 Height 5 ft 10 in Weight 167 lb 1.766 oz BMI 24.0 BP 130/82 Blood Pressure Location Lt brachial Position Sitting Intake Visit Reasons: S/P LIH w/mesh Intake Note: Patient is seen in office for post op assessment post left inguinal hernia repair. Pt c/o: admits to sore, denies any other concerns Silk Conditioner Required: No Accompanied by: Self / Same As Patient Allergies No Known Allergies Allergy (Verified 01/13/23 09:15) HPI S/P LIH w/mesh HPI Details He underwent repair of a left inguinal hernia with mesh last 12/31/2022. He tolerated procedure well. He currently denies significant complaints. [facility] Medical History Left inguinal hernia (12/31/22) PVC (premature ventricular contraction) Tremor Eczema Osteoarthritis Cervical radiculopathy Chronic back pain Elevated cholesterol Right groin pain Left inguinal hernia Arthritis Surgical History H/O inguinal hernia repair (12/31/22) Hx of total knee arthroplasty History of surgery Hx of carpal tunnel repair Hx of shoulder surgery Hx of arthroscopic knee surgery H/O colonoscopy History of hernia repair Alcohol intake: unknown Patient Tobacco Use Status: Never used Tobacco Review of Systems Const Denies chills and Denies fever(s) Card Denies chest pain, Denies dyspnea and Denies dyspnea on exertion Resp Denies cough, Denies dyspnea and Denies dyspnea on exertion GI Denies hematochezia and Denies change in bowel habits Denies hematuria and Denies difficulty urinating Musc Denies back pain and Denies limited range of motion Neuro Denies focal weakness and Denies convulsions Psych Denies depression and Denies mood swings Physical Exam Vital Signs: Last Vital Signs BP 130/82 01/13/23 09:20 BMI result Body Mass Index 24.0 Const General: comfortable and no acute distress Resp Effort & Inspection: normal respiratory effort GI Other: Left inguinal hernia repair site well healed, not infected, repair site intact Palpation (GI): Soft to palpation, not firm and nontender Assessment & Plan Assessment & Plan (1) Left inguinal hernia: Code(s): K40.90 - Unilateral inguinal hernia, without obstruction or gangrene, not specified as recurrent Plan: Status post repair with mesh. He is doing very well. The repair site is intact and well healed. I advised him to avoid any lifting more than 20 lb for at least 2 more weeks. He can follow up on a p.r.n. basis. Coding Level of Care Code Global (61930) Diagnoses Left inguinal hernia K40.90
[2023-01-13 09:20] VITALS: BP 130/82; BMI 24.0
== END 2023-01-13 09:25 | disposition home or self-care (01) ==
PROVIDERS: PCP Family Medicine; Visit Provider Surgery
DX: K40.90 Unilateral inguinal hernia, without obstruction or gangrene, not specified as recurrent (principal)
CPT/HCPCS: 99024

== ENCOUNTER → 2023-01-13 09:13 | Outpatient (BNVA) | payer MEDICARE, SELFPAY | PROVIDERS: PCP Family Medicine; Visit Provider Surgery ==

== ENCOUNTER 2023-01-29 08:24 | Outpatient (REF) | payer MEDICARE, SELFPAY ==
[2023-02-07 04:18] LABS: Aldolase 4.3 U/L (<=8.1)
== END 2023-01-29 08:25 | disposition home or self-care (01) ==
LOC: HO.10HDL 08:24
PROVIDERS: Visit Provider Family Medicine
DX: R53.1 Weakness (principal)
CPT/HCPCS: 36415; 82085; 82550

== ENCOUNTER 2023-02-03 09:57 | Outpatient (AMB) | payer MEDICARE, SELFPAY ==
[2023-02-03 10:06] VITALS: BP 120/77; PULSE 65; BMI 24.2
--- NOTE | 2023-02-03 10:06 | A.OFFVIS_ITS ---
Intake Vital Signs 02/03/23 10:06 Height 5 ft 10 in Weight 169 lb BMI 24.2 BP 120/77 Blood Pressure Location Rt brachial Position Sitting Pulse 65 Intake Visit Reasons: s/p LIH repair with mesh, discomfort Intake Note: This patient presents for a post-op follow-up assessment status post left inguinal hernia repair with mesh. Patient c/o; reports soreness surgical site, reports last week coughed and felt a burning sensation. Health Care Liaison Required: No Accompanied by: Self / Same As Patient Allergies No Known Allergies Allergy (Verified 02/03/23 10:15) HPI s/p LIH repair with mesh, discomfort HPI Details He is here for another postop visit. He had left inguinal hernia repair with mesh about 5 weeks ago. He had been doing well. However, he says he has occasional tingling discomfort on the hernia repair site. He is an avid skier and he is planning to go to the slopes in a couple of weeks so he wanted this checked before he goes skiing. He denies any significant pain. He denies any palpable mass. [facility] Medical History Left inguinal hernia (12/31/22) PVC (premature ventricular contraction) Tremor Eczema Osteoarthritis Cervical radiculopathy Chronic back pain Elevated cholesterol Right groin pain Left inguinal hernia Arthritis Surgical History H/O inguinal hernia repair (12/31/22) Hx of total knee arthroplasty History of surgery Hx of carpal tunnel repair Hx of shoulder surgery Hx of arthroscopic knee surgery H/O colonoscopy History of hernia repair Social History Alcohol intake: unknown Patient Tobacco Use Status: Never used Tobacco Review of Systems Const Denies chills and Denies fever(s) Card Denies chest pain, Denies dyspnea and Denies dyspnea on exertion Resp Denies cough, Denies dyspnea and Denies dyspnea on exertion GI Denies hematochezia and Denies change in bowel habits Denies hematuria and Denies difficulty urinating Musc Denies back pain and Denies limited range of motion Neuro Denies focal weakness and Denies convulsions Psych Denies depression and Denies mood swings Physical Exam Vital Signs: Last Vital Signs Pulse 65 02/03/23 10:06 BP 120/77 02/03/23 10:06 BMI result Body Mass Index 24.2 Const General: comfortable and no acute distress Resp Effort & Inspection: normal respiratory effort GI Other: Left inguinal hernia repair site is well healed, no palpable hernias, repair appears intact, no redness or tenderness Assessment & Plan Assessment & Plan (1) Left inguinal hernia: Code(s): K40.90 - Unilateral inguinal hernia, without obstruction or gangrene, not specified as recurrent Plan: Status post repair with mesh. The repair site appears intact. He does not have any obvious infection. I assured him that the tingling pain may occur as part of his normal postop course in view of the presence of mesh and cicatrization. I do not feel any recurrence. He is actually cleared to return to normal level of activities including skiing by next week. He can still follow up on a p.r.n. basis. Coding Level of Care Code Global (33080) Diagnoses Left inguinal hernia K40.90
== END 2023-02-03 10:26 | disposition home or self-care (01) ==
PROVIDERS: PCP Family Medicine; Visit Provider Surgery
DX: K40.90 Unilateral inguinal hernia, without obstruction or gangrene, not specified as recurrent (principal)
CPT/HCPCS: 99024

== ENCOUNTER → 2023-02-03 09:57 | Outpatient (BNVA) | payer MEDICARE, SELFPAY | PROVIDERS: PCP Family Medicine; Visit Provider Surgery | DX: Z48.815 Encounter for surgical aftercare following surgery on the digestive system (principal); Z98.890 Other specified postprocedural states | CPT/HCPCS: 99212 ==

== ENCOUNTER 2023-08-11 08:30 | Outpatient (REF) | payer MEDICARE, SELFPAY ==
[2023-08-11 11:07] LABS: MANUAL DIFF FLAG NO
[2023-08-11 11:13] LABS: Basophils Percent Auto 0.4 % (0-2); Eosinophils Absolute Auto 0.1 X10*3/uL (0.0-0.4); Eosinophils Percent Auto 1.3 % (0-4); Hematocrit 42.8 % (42.0-52.0); Hemoglobin 14.6 g/dl (14.0-18.0); Imm Gran Abs Auto 0.03 X10*3/uL (0.00-0.03); Imm Gran Pct Auto 0.4 % (0.0-0.4); Lymphocytes Absolute Auto 0.8 X10*3/uL (1.2-4.9); Lymphocytes Percent Auto 10.3 % (20-40); Mean Corpuscular HGB Conc 34.1 g/dl (31.0-36.0); Mean Corpuscular Hemoglobin 32.3 pg (27.0-33.0); Mean Corpuscular Volume 94.7 fL (80.0-98.0); Mean Platelet Volume 9.9 fL (9.4-12.4); Monocytes Absolute Auto 0.6 X10*3/uL (0.1-1.2); Monocytes Percent Auto 7.8 % (2-11); Neutrophils Absolute Auto 6.4 x10*3/uL (2.0-8.3); Neutrophils Percent Auto 79.8 % (45-73); Platelet Count 225 X10*3/uL (160-400); Red Blood Count 4.52 X10*6/uL (4.60-5.80); Red Cell Distribution Width 14.4 % (11.0-16.0)
[2023-08-11 11:26] LABS: Alanine Aminotransferase 19 U/L (0-40); Aspartate Amino Transferase 24 U/L (5-37)
== END 2023-08-11 08:31 | disposition home or self-care (01) ==
LOC: HO.10HDL 08:30
PROVIDERS: Visit Provider Family Medicine
DX: K21.9 Gastro-esophageal reflux disease without esophagitis (principal); E78.00 Pure hypercholesterolemia, unspecified; Z79.899 Other long term (current) drug therapy; M19.90 Unspecified osteoarthritis, unspecified site
CPT/HCPCS: 36415; 82550; 84450; 84460; 85025

== ENCOUNTER 2023-08-27 11:05 | Outpatient (REF) | payer MEDICARE, SELFPAY ==
[2023-08-27 13:33] LABS: Prothrombin Time 11.7 SEC (11.1-13.3)
[2023-08-27 13:36] LABS: Partial Thromboplastin Time 28.5 SEC (26.0-36.8)
== END 2023-08-27 11:06 | disposition home or self-care (01) ==
LOC: HO.10HDL 11:05
PROVIDERS: Visit Provider Family Medicine
DX: R31.9 Hematuria, unspecified (principal)
CPT/HCPCS: 36415; 85610; 85730

== ENCOUNTER 2024-03-04 11:21 | Outpatient (REF) | payer MEDICARE, SELFPAY ==
--- NOTE | ~2024-03-04 | XR_ITS ---
EXAMINATION: XR CERVICAL SPINE CLINICAL INFORMATION: neck pain COMPARISON: None available. TECHNIQUE: 5 views of the cervical spine, inclusive of bilateral oblique views, were obtained. FINDINGS: Normal bone mineralization. No fracture, compression deformity, evidence of traumatic subluxation, or suspicious bone lesion. No scoliosis. Straightening of the normal lordosis. Moderate to severe disc space loss and degeneration spanning C2-C7. Sclerotic type endplate changes at C3-4. Mild to moderate, left greater than right multilevel degenerative hypertrophic facet changes present. There are multilevel hypertrophic uncinate changes. Craniocervical junction and C1-2 articulation are intact and normally aligned. Oblique views demonstrate moderate neural foraminal narrowing on the right at C3-4 and C4-5, and moderate to severe narrowing on the left at C3-C7. There is no prevertebral soft tissue abnormality. There are left carotid calcifications. Imaged lung apices are clear. XR/XR cervical spine 5V IMPRESSION: 1. No acute cervical spine abnormalities. 2. Moderate degenerative spondylosis. Electronically signed by: Joe Bradley MD 03/04/2024 12:04 PM [place]
--- OUTSIDE RECORDS SUMMARY | 2024-03-04 14:19 | XMS_ITS | Data Portability ---
Author Organization [facility], OFFICE Address [address] [facility] [address] [place] [id number] Assessment Encounter Date Assessment Date Assessment LastModified by Organization Details LastModified Time 06/26/2020 06/26/2020 Mr. Hays is havi ng symptoms on both sides now. His inflammatory markers were normal and his bone scan doesn't show signs of concern. We are going to make plans for re-examination. This visit was conducted as a real-time telehealth interactive video visit during this the national emergency and ongoing COVID-19 pandemic. He was identified and consented to this telehealth visit. I spent a total of 10 minutes during this encounter. Greater than 50% of the time was devoted to counseling and coordinating care. This included reviewing records and pertinent studies, discussing diagnostic evaluation and workup, planning therapeutic interventions, and formulating the future disposition of care. 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 He walks well and his knees have excellent motion, PF Tracking, and stability. His radiographs don't show signs of concern. He has soft tissue crepitus bilaterally especially anteriorly. It doesn't appear that his knees are loose, infected, or unstable. He has mild effusions. I've recommended an LTT. sbm Not available 07/26/2020 15:12:11 09/07/2020 09/07/2020 Jesus and I discussed the issues related to his treatment. His knees bother him. He has great motion, stability, PF tracking and his LTT is negative. He's unable to play hockey which he'd like to do. I suggested that I discuss with radiology re further assessment. This visit was conducted as a real-time telehealth interactive visit during this the national emergency and ongoing COVID-19 pandemic. He was identified and consented to this telehealth visit. I spent a total of 10 minutes during this encounter. Greater than 50% of the time was devoted to counseling and coordinating care. This included reviewing records and pertinent studies, discussing diagnostic evaluation and workup, planning therapeutic interventions, and formulating the future disposition of care. sbm Not available 09/07/2020 09:56:14 09/26/2020 09/26/2020 Mr. Hays still h as bilateral knee symptoms, especially stiffness in the morning. His LTT did not suggest metal hypersensitivity. He hasn't had a history concerning for infection. I've recommended an aspiration/arthrog dennis of his left knee for culture, cell count, and crystal analysis. This visit was conducted as a real-time telehealth interactive video visit during this the national emergency and ongoing COVID-19 pandemic. He was identified and consented to this telehealth visit. I spent a total of 15 minutes during this encounter. Greater than 50% of the time was devoted to counseling and coordinating care. This included reviewing records and pertinent studies, discussing diagnostic evaluation and workup, planning therapeutic interventions, and formulating the future disposition of care. sbm Not available 09/26/2020 14:10:22 10/31/2020 10/31/2020 Jesus still has a feeling of tightness in his knees but overall they are functioning better. There's no evidence of loosening, ligament instability, metal hypersensitivity or infection. It is likely that he will continue to improve. He's going to continue to progress his activities and we'll determine further treatment based on his clinical progress. This visit was conducted as a real-time telehealth interactive video visit during this ongoing COVID-19 pandemic. He was identified and consented to this telehealth visit. I spent a total of 15 minutes during this encounter. Greater than 50% of the time was devoted to counseling and coordinating care. This included reviewing records and pertinent studies, discussing diagnostic evaluation and workup, planning therapeutic interventions, and formulating the future disposition of care. sbm Not available 10/31/2020 11:34:55 Plan of Treatment Reminders Order Date Submit Date Provider Last Modified By Organization Details Last Modified Time Details Appointments None record ed. Lab None record ed. Referral None record ed. Procedures None record ed. Surgeries None record ed. Imaging None record ed. Medication Orders None record ed. Patient TargetsNo targets recorded. Patient InstructionsNo instructions recorded. Reason for Referral None Reported. Results Created Date Observation Date Name Description Value Unit Range Abnormal Flag Note LastModifiedBy Organization Detail LastModifiedTime 06/27/19 21 imagi ng/di agnos tic resul t No observ ation record ed. [email or web address] Not Available 06/26 10:34:44 10/31/19 21 imagi ng/di agnos tic resul t No observ ation record ed. [email or web address] Not Available 10/30 15:50:57 Result Notes None recorded. Procedures Surgical History Date Name Laterality Status Provider Name and Address Organization Details Recorded Time 0 total replacement of right knee joint completed Laura Holden [place] - [facility] 09/01/2019 08:04:49 0 total replacement of left knee joint completed Shay Antunez MD [address] [facility],[address], [place], [address], [place] - Comp-Assistd and Rcnstrctive Surgry 10/31/2020 11:18:40 Knee arthroscopy/wendy lam completed Shay Antunez MD [address] [facility], [place], [address], [place] - Comp-Assistd and Rcnstrctive Surgry 12/09/2018 16:50:45 Imaging Results Imaging Date Name Status LastModified by Organiz ation Details LastModified Time 06/26/2020 imaging/diag nostic result completed [email or web address] Information not available 06/26/2020 10:34:44 10/30/2020 imaging/diag nostic result completed [email or web address] Information not available 10/30/2020 15:50:57 Procedure Notes None recorded. Medical Equipment None Reported. Allergies Allergen ID Allergen Name Allergen Category Reaction Reaction Severity Criticality Documentation Date Start Date Code Code System Note Provider Name and Address Organization Details Recorded Time 9519 Medicinal product containin g penicilli n and acting as antibacte rial agent (product) medicatio n Not available Not available Not available 12/09/2018 26344 05 SNOMED child vargas Laura moseley, [place] - [facility]Ass[facility]d and [facility] 0 12:13:55 Medications Name Sig Start Date Stop Date Status Note LastModified by Organization Details LastModified Time amoxicillin 500 mg capsule TAKE 4 CAPSULES BY MOUTH 1 HOUR BEFORE DENTAL WORK active Not Available Not Available No t Available tramadol 50 mg tablet 06/26 completed Not Available Not Available Not Available simvastatin 40 mg tablet TAKE 1 TABLET BY MOUTH EVERY DAY active Not Available Not Available No t Available Celebrex 200 mg capsule The night before surgery take 2 tablets. The morning of surgery take 1 tablet. Then take 1 tablet daily after surgery 06/26 completed Not Available Not Available Not Available Zofran 4 mg tablet take 2 tablets twice aday prn Nausea 06/26 completed Not Available Not Available Not Available oxycodone-a cetaminophe n 5 mg-325 mg tablet 06/26 completed Not Available Not Available Not Available hydromorpho ne 2 mg tablet Take 1-2 tablet(s) EVERY 4-6 HOURS by oral route. 06/26 completed Not Available Not Available Not Available lidocaine 5 % topical patch 06/26 completed Not Available Not Available Not Available warfarin 1 mg tablet Adjusted dose after surgery up to 1-10mg daily. 06/26 completed Not Available Not Available Not Available tobramycin 0.3 %-dexametha sone 0.1 % eye drops,suspe nsion 06/26 completed Not Available Not Available Not Available oxycodone 5 mg tablet Take 1-2 tablet(s) EVERY 4-6 HOURS by oral route. PRN pain 06/26 completed Not Available Not Available Not Available celecoxib 400 mg capsule 06/26 completed Not Available Not Available Not Available Vitals None Recorded Social History Question Answer Notes LastModified by Organizat ion Details LastModified Time Tobacco Smoking Status Never Smoker Laura Navin moseley, [facility] - [facility] 12/09/2018 16:18:34 Do You Or Have You Ever Used E-cigarettes Or Vape? Never Used Electronic Cigarettes [email or web address] Information not available 12/09/2018 What Was The Date Of Your Most Recent Tobacco Screening? 12/09/2018 [email or web address] Information not available 12/09/2018 Do You Or Have You Ever Used Smokeless Tobacco? Never Used Smokeless Tobacco [email or web address] Information not available 12/09/2018 How Much Tobacco Do You Smoke? No [email or web address] Information not available 12/09/2018 How Many Years Have You Smoked Tobacco? 0 [email or web address] Information not available 12/09/2018 Sex: Unknown Functional Status None recorded. Mental Status None recorded. Family History Relationship Description Onset Age of this Age Resolved Age Notes LastModified by Organization Details LastModified Time Mother Arthritis sbm Not available 12/09/2018 16:50:22 Brother Arthritis sbm Not available 12/09/2018 16:50:22 Medical History Condition Response High Cholesterol Y Past Encounters Encounter ID Performer Location Encounter Start Date Encounter Closed Date Diagnosis/Indication Diagnosis SNOMED-CT Code Diagnosis ICD10 Code Diagnosis Note [id number] Shay Antunze MD OFFICE [address] [address] 12/09/2018 12:57:31 12/14/2018 13:56:58 [id number] [facility] [address] [place] [address] 09/01/2019 08:04:01 09/01/2019 20:24:59 [id number] [facility] [address] [place] [address] 02/28/2020 10:39:30 02/29/2020 19:41:36 [id number] [facility] [address] [place] [address] 05/17/2020 09:34:36 05/17/2020 17:24:32 [id number] [facility] [address] [place] [address] 06/26/2020 07:34:41 06/26/2020 20:56:21 [id number] Shay Antunez MD OFFICE [address] [facility] [address] [address] 07/26/2020 10:31:29 07/26/2020 16:44:33 [id number] [facility] [address] [place] [address] 09/07/2020 08:23:37 09/07/2020 17:24:48 [id number] Shay Antunez MD [facility] [address] [place] [address] 09/26/2020 10:09:38 09/26/2020 15:01:14 [id number] Shay Antunez MD [facility] [address] [place] [address] 10/31/2020 07:21:53 10/31/2020 15:00:29 Health Concerns Section Related Observation LastModified by Organization Detai ls LastModified Time None Recorded Concern Status LastModified by Organization Details LastModified Time None Recorded Advance Directives Directive None Recorded Payers Encounter Date Sequence Insurance Name Policy Number Policy Alvarenga Covered Member ID Alvarenga Member ID Guarantor Name 06/26/2020 1 [facility]) Cedric Lis [id number] Cedric Lis 07/26/2020 1 [facility]) Cedric Lis [id number] Cedric Lis 09/07/2020 1 [facility]) Cedric Lis [id number] Cedric Lis 09/26/2020 1 [facility]) Cedric Lis [id number] Cedric Lis 10/31/2020 1 [facility]) Cedric Lis [id number] Cedric Lis Notes Date Note Type Note Provider Name and Address Organization Details Recorded Time 06/26/2020 text/html KneeReported bypatient.Location :bilateral Severity:mild Context:bending; with activity Aggravating Factors:as described before, skiing is fine. its start up or walking that bothers. Associated Symptoms:no weakness; no numbness; no tingling; no swelling; no redness; no warmth; no ecchymosis; no catching/locking; no popping/clicking; no buckling; no grinding; no instability; no radiation down leg; no drainage; no fever; no chills; no weight loss; no change in bowel/bladder habits Prior Imaging:x ray; CT scan Shay Antunez MD [facility] [address] [address], [place], [address], [place] - Comp-Assistd and [facility]cn[facility]ctive S[facility] 06/26/2020 10:47:08 07/26/2020 text/html KneeReported bypatient.Location :bilateral Severity:mild Timing:intermitten tly, but mostly with athletic activities. Aggravating Factors:sporting activities such as skating for example Associated Symptoms:no weakness; no numbness; no tingling; no swelling; no redness; no warmth; no ecchymosis; no catching/locking; no popping/clicking; no buckling; no grinding; no instability; no radiation down leg; no drainage; no fever; no chills; no weight loss; no change in bowel/bladder habits Prior Imaging:x ray; MRI Previous PT:helped temporarily Shay Antunez MD [address],[facility] [address], [place], [address], [place] - Comp-Assistd and [facility]cn[facility] 07/26/2020 15:12:15 09/07/2020 text/html KneeReported bypatient.Location :bilateral Severity:mild Timing:Jesus's symptoms are unchanged. Associated Symptoms:no weakness; no numbness; no tingling; no swelling; no redness; no warmth; no ecchymosis; no catching/locking; no popping/clicking; no buckling; no grinding; no instability; no radiation down leg; no drainage; no fever; no chills; no weight loss; no change in bowel/bladder habits Prior Imaging:x ray; MRI Previous PT:helped temporarily Shay Antunez MD [address],[facility] [address], [place], [address], [place] - Comp-Assistd and [facility]ctive S[facility] 09/07/2020 09:56:18 09/26/2020 text/html KneeReported bypatient.Location :bilateral Severity:mild Timing:Jesus's symptoms are unchanged. He doesn't have any pain walking but he has medial tenderness bilaterally and symptoms particularly after activity. Associated Symptoms:no weakness; no numbness; no tingling; no swelling; no redness; no warmth; no ecchymosis; no catching/locking; no popping/clicking; no buckling; no grinding; no instability; no radiation down leg; no drainage; no fever; no chills; no weight loss; no change in bowel/bladder habits Prior Imaging:x ray; MRI; bone scan Previous PT:helped temporarily Shay Antunez MD [address],[facility] [address], [place], [address], [place] - Comp-Assistd and Rcnstrctive Surgry 09/26/2020 14:10:26 10/31/2020 text/html KneeReported bypatient.Location :bilateral Severity:mild Timing:Jesus's symptoms have improved. He was able to skate twice last week with no symptoms. Associated Symptoms:no weakness; no numbness; no tingling; no swelling; no redness; no warmth; no ecchymosis; no catching/locking; no popping/clicking; no buckling; no grinding; no instability; no radiation down leg; no drainage; no fever; no chills; no weight loss; no change in bowel/bladder habits Prior Imaging:x ray; MRI; bone scan Shay Antunez MD [address],[facility] [address], [place], [address], [place] - Comp-Assistd and [facility]cn[facility]ctive S[facility]ry 10/31/2020 11:34:59
== END 2024-03-04 11:22 | disposition home or self-care (01) ==
LOC: HO.XRAY 11:21
PROVIDERS: PCP Family Medicine; Visit Provider Family Medicine
DX: M54.2 Cervicalgia (principal)
CPT/HCPCS: 72050

== ENCOUNTER → 2024-03-04 11:30 | Outpatient (BNV) | payer MEDICARE, SELFPAY | PROVIDERS: PCP Family Medicine; Visit Provider Radiology Diagnostic Radiology | DX: M54.2 Cervicalgia (principal) | CPT/HCPCS: 72050 ==

== ENCOUNTER 2024-05-12 07:42 | Outpatient (REF) | payer MEDICARE, SELFPAY ==
[2024-05-12 10:26] LABS: MANUAL DIFF FLAG NO
[2024-05-12 10:33] LABS: Basophils Percent Auto 0.6 % (0-2); Eosinophils Absolute Auto 0.2 X10*3/uL (0.0-0.4); Hematocrit 45.1 % (42.0-52.0); Hemoglobin 15.1 g/dl (14.0-18.0); Imm Gran Abs Auto 0.02 X10*3/uL (0.00-0.03); Imm Gran Pct Auto 0.4 % (0.0-0.4); Lymphocytes Percent Auto 19.7 % (20-40); Mean Corpuscular HGB Conc 33.5 g/dl (31.0-36.0); Mean Corpuscular Volume 95.6 fL (80.0-98.0); Mean Platelet Volume 10.3 fL (9.4-12.4); Monocytes Absolute Auto 0.4 X10*3/uL (0.1-1.2); Monocytes Percent Auto 8.5 % (2-11); Neutrophils Absolute Auto 3.4 x10*3/uL (2.0-8.3); Neutrophils Percent Auto 67.8 % (45-73); Platelet Count 206 X10*3/uL (160-400); Red Blood Count 4.72 X10*6/uL (4.60-5.80); Red Cell Distribution Width 13.4 % (11.0-16.0); White Blood Count 5.1 X10*3/uL (4.8-10.8)
[2024-05-12 11:00] LABS: Cholesterol 158 mg/dL (<200); Glucose Fasting 103 mg/dL (60-99); HDL Cholesterol 65 mg/dL (>40); LDL Cholesterol Calculated 82 mg/dL (<100); Triglycerides 58 mg/dL (<150)
[2024-05-12 11:03] LABS: Estimated Average Glucose 105 mg/dL; Hemoglobin A1C 139.8546 umol/L; Hemoglobin A1c % 5.3 % (<6.0); Total Hemoglobin (HGBA1C) 4035.6767 umol/L
[2024-05-12 11:16] LABS: Free T4 (Free Thyroxine) 1.06 ng/dL (0.71-1.85)
== END 2024-05-12 07:43 | disposition home or self-care (01) ==
LOC: HO.10HDL 07:42
PROVIDERS: Visit Provider Family Medicine
DX: R51.9 Headache, unspecified (principal); R73.9 Hyperglycemia, unspecified; R25.1 Tremor, unspecified; Z13.6 Encounter for screening for cardiovascular disorders
CPT/HCPCS: 36415; 80061; 82947; 83036; 84439; 85025

== ENCOUNTER 2024-11-24 09:05 | Outpatient (AMB) | payer MEDICARE, SELFPAY ==
--- NOTE | 2024-11-24 08:43 | A.OFFPC_ITS ---
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 Required: No Accompanied by: Self / Same As Patient Allergies No Known Allergies Allergy (Verified 11/24/24 08:44) Tobacco use date assessed: 11/24/24 Fall risk assessment: No Falls in past year Last assessed Fall Risk: 11/24/24 Dental Screening Dental Screen Date: 11/24/24 Did you have a dental visit in the last 12 months?: Yes Did you have a dental problem in the last 6 months where you did not have access to dental care?: No Was dental information given to patient?: Patient has dentist HPI HPI Comments History of Present Illness Details The patient is a 69-year-old male presenting with orthopedic concerns and unexplained weight loss. The patient reports ongoing issues with his left shoulder, which began after having both knees and shoulders replaced in the past. He mentions that the left shoulder rotator cuff is not functional and he has been living with this issue for about a year. Additionally, in August, an operation was planned for his right hand to remove a tendon and manage wrist pain, but he refused the procedure due to concerns about fusing his wrist, which he fears would affect his ability to play hockey. The patient also reports numbness and pain in three fingers of his hand, following carpal tunnel surgery. He engages in frequent activities such as skating, where he experiences falls, though he has not noted any specific injury leading to the numbness. Furthermore, he indicates discomfort in the wrist and some involvement of the groin, which started a month ago after a possible strain during skating. Unexplained weight loss has been another concern, as he has dropped from 188 pounds two years ago to 160 pounds now, despite having a high-calorie diet and regular gym visits. His dietary habits include consuming steak, chicken, p otatoes, vegetables, ice cream, and potato chips, with frequent exercise like cardio. Medical History: - Osteoarthritis, treated with Celebrex - Hypercholesterolemia - Chronic back pain managed with Intrace pt procedure in May (nerve burning) Surgical History: - Total knee replacements - Total shoulder replacements - Carpal tunnel surgery - Previous surgeries on knees and should ers (24 in total) - Intracept procedure for back pain in [place] pril Medications: - Celebrex for arthritis - Simvastatin for hypercholesterolemia Family History: - No history of cancer, diabetes, or hea rt disease - Father had Chronic Obstructive Pulmona ry Disease (COPD) related to smoking Social History: - 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, 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 - Substance Use: Occasional alcohol cons umption (two to three beers after hockey activities two to three nights a week) - Exercise: Active, attends gym five day s a week for cardio; plays hockey several times a week - Nutrition: Consumes a high-calorie t, including steak, chicken, vegetables, ice cream, and potato chips - Smoking: Denies any history of smoking - Recreational Drug Use: Denies marijuan a, cocaine, or other substances PFSH Medical History (Updated 11/24/24 @ 09:56 by Rashawn Montoya MD) Unintentional weight loss Neuropathy Hyperlipidemia Left inguinal hernia (12/31/22) PVC (premature ventricular contraction) Tremor Eczema Osteoarthritis Cervical radiculopathy Chronic back pain Elevated cholesterol Right groin pain Left inguinal hernia Arthritis Surgical History (Updated 08/31/24 @ 14:06 by Angie Hollis) H/O inguinal hernia repair (12/31/22) Hx of total knee arthroplasty History of surgery Hx of carpal tunnel repair Hx of shoulder surgery Hx of arthroscopic knee surgery H/O colonoscopy (~06/15/15) History of hernia repair Social History Housing: House Alcohol intake: unknown Patient Tobacco Use Status: Never used Tobacco e-Cigarette/Vaping Use: Never Used service: No Current occupational status: retired Questionnaire PHQ-9 Over the last 2 weeks, how often have you been bothered by any of the following problems? 1. Little interest or pleasure in doing things: not at all 2. Feeling down, depressed, or hopeless: not at all 3. Trouble falling or staying asleep, or sleeping too much: not at all 4. Feeling tired or having little energy: not at all 5. Poor appetite or overeating: not at all 6. Feeling bad about yourself - or that you are a failure or have let yourself or your family down: not at all 7. Trouble concentrating on things, such as reading the newspaper or watching television: not at all 8. Moving or speaking so slowly that other people could have noticed. Or the opposite - being so fidgety or restless that you have been moving around a lot more than usual: not at all 9. Thoughts that you would be better off or of hurting yourself in some way: not at all Total score: 0 Depression Screening Interpretation: Negative Depression Screening Done: Yes 84072 - PHQ-9 Billing: Yes Source: Developed by Drs. Bravo Thomas, Jennifer Dumont, Alex Pacheco and colleagues, with an educational jose from [employer]. Thrive Questionnaire Date Thrive assessed: 11/24/24 I am a: Patient What is your living situation today?: I have a steady place to live Within the past 12 months, did the food you bought not last and you didn't have the money to get more?: Never true Within the past 12 months, did you worry whether your food would run out before you got money to buy more?: Never true Do you have trouble paying for medicines?: No Do you have trouble getting transportation to medical appointments?: No Do you have trouble paying your heating and electricity bill?: No Do you have trouble taking care of your child, family member or friend?: No Do you have trouble with day-to-day activities such as bathing, preparing meals, shopping, managing finances, etc.?: No Are you currently unemployed and looking for a job?: No Are you interested in more education?: No THRIVE Score: 0 AUDIT C Alcohol Use Questionnaire (AUDIT-C) 1. How often do you have a drink containing alcohol?: 2-3 times a week 2. How many drinks containing alcohol do you have on a typical day when you are drinking?: 1 or 2 3. How often do you have six or more drinks on one occasion?: Never Total Score: 3 Score Reviewed/Action Taken: Yes ZAIRA-7 AMB Questionnaire ZAIRA-7 Date ZAIRA - 7 assessed: 11/24/24 Feeling nervous, anxious, or on edge: 0 = Not at all Not being able to stop or control worryin = Not at all Worrying too much about different things: 0 = Not at all Trouble relaxin = Not at all Being so restless that it is hard to sit still: 0 = Not at all Becoming easily annoyed or irritable: 0 = Not at all Feeling afraid as if something awful might happen: 0 = Not at all Total ZAIRA-7 score (0-4 normal; 5-9 mild; 10-14 moderate; 15-21 severe): 0 Source: Developed by Drs. Bravo Thomas, Jennifer Dumont, Alex Pacheco and colleagues, with an educational jose from [employer]. ZAIRA-7 Assessment Billing ZAIRA-7 Assessment Tool: ZAIRA-7 Assessment 54860 Review of Systems Const Details: - Musculoskeletal: Reports shoulder and wrist pain, finger numbness, and groin discomfort; Reports prior surgeries - Neurological: Reports numbness and pain in fingers; Reports neuropathy in feet - Cardiovascular: Denies changes in urination or bowel movements - Constitutional: Reports unintentional weight loss - Gastrointestinal: Denies changes in bowel habits All systems reviewed & are unremarkable except as reviewed in HPI and above Physical exam (Primary Care) Vital Signs: Last Vital Signs Temp 98.1 F 11/24/24 09:14 Pulse 77 11/24/24 09:14 Resp 16 11/24/24 09:14 BP 108/76 11/24/24 09:14 Pulse Ox 95 11/24/24 09:14 Oxygen Delivery Method Room Air 11/24/24 09:14 BMI result Body Mass Index 22.8 Tobacco/Smoking Status: Tobacco use Status Tobacco use date assessed 11/24/24 11/24/24 08:44 Patient Tobacco Use Status Never used Tobacco 11/24/24 08:44 e-Cigarette/Vaping Use Never Used 11/24/24 09:18 Depression Screening Interpretation: Negative Const Other: General: Alert and oriented, Well nourished, No acute distress. Eye: Pupils are equal, round and reactive to light, Intact accommodation, Extraocular movements are intact, Normal conjunctiva, Vision unchanged. HENT: Normocephalic, Atraumatic, Tympanic membranes are clear, Normal hearing, Oral mucosa is moist, No pharyngeal erythema, Ear canals patent. Respiratory: Lungs CTA bilaterally, No wheeze, Respirations are non-labored. Cardiovascular: Regular rate, Regular rhythm, S1 auscultated, S2 auscultated, No murmur, Good pulses equal in all extremities, Normal peripheral perfusion, No edema. Gastrointestinal: Soft, Non-tender, Non-distended, Normal bowel sounds, No organomegaly. Musculoskeletal: Limited range of motion in the left shoulder, Tenderness in the left wrist, No swelling, No deformity, Normal gait. Integumentary: Warm, Dry, [place], Intact. Neurologic: Alert, Oriented, Normal sensory, Normal motor function, No focal defects, Cranial Nerves II-XII are grossly intact, Normal deep tendon reflexes. Psychiatric: Cooperative, Appropriate mood & affect, Normal judgment. Coding Level of Care Code New Pt Level 4 (46934) Diagnoses Unintentional weight loss R63.4 Hyperlipidemia, unspecified hyperlipidemia type E78.5 Hyperlipidemia type: unspecified Arthritis M19.90 Neuropathy G62.9 Additional Codes PHQ-9 - 16734 - PHQ-9 Billing: Yes ([id number]) ZAIRA-7 Assessment Billing - ZAIRA-7 Assessment Tool: ZAIRA-7 Assessment 89623 ([id number]) Assessment & Plan Assessment & Plan (1) Unintentional weight loss: Comment: - Approximate 10 to 20 pound weight loss over the past few months - Concern for underlying malignancy; ordered blood work, including thyroid function and PSA, and discussed stool test for occult blood to rule out cancer. Code(s): R63.4 - Abnormal weight loss Category: Medical (2) Hyperlipidemia: Comment: - Continued Simvastatin therapy. - Last lipid panel from April reviwed Code(s): E78.5 - Hyperlipidemia, unspecified Category: Medical Qualifiers: Hyperlipidemia type: unspecified Qualified Code(s): E78.5 - Hyperlipidemia, unspecified (3) Arthritis: Comment: - Continued management with Celebrex for pain and inflammation. - Encouraged continued activity to help manage symptoms. Code(s): M19.90 - Unspecified osteoarthritis, unspecified site Category: Medical (4) Neuropathy: Comment: - Suggested trial of cyclobenzaprine for muscle relaxation and symptom relief and possible addition of gabapentin in the future Code(s): G62.9 - Polyneuropathy, unspecified Category: Medical Plan: Health Maintenance: - Continue regular physical activity - Diet discussed: balanced high-calorie intake noted; no further dietary interventions discussed - Advised against smoking and excess alcohol use Patient was informed and verbally consented to the use of an ambient scribe for clinic note documentation during this visit. Plan I discussed with the patient the various orthopedic concerns and the need for comprehensive evaluation to understand the underlying causes of his unexplained weight loss. I explained that the primary concerns revolve around ensuring there is no underlying malignancy contributing to his weight loss. Blood tests, including thyroid function, PSA, and a stool test, have been ordered for further evaluation. Regarding his chronic orthopedic conditions, continuing regular exercise and adherence to current medication regimens was emphasized. For his musculoskeletal discomfort, a trial of cyclobenzaprine was suggested. I recommended that the patient continue his active lifestyle. I also explained the workflow for the scheduled x-ray and lab work. The patient was advised to follow up with any significant changes or concerns. Orders: Orders Comprehensive Met. Panel Today Z76.89 - Persons encountering health services in other specified circumstances Hemoglobin A1c Today Z76.89 - Persons encountering health services in other specified circumstances Complete Blood Count Auto Diff Today Z76.89 - Persons encountering health services in other specified circumstances PSA,Total (Free>4and<10) Today Z76.89 - Persons encountering health services in other specified circumstances XR wrist RT min 3V Today M19.90 - Unspecified osteoarthritis, unspecified site Vitamin D 25-OH Total Today Z76.89 - Persons encountering health services in other specified circumstances TSH reflex Free T4 Today Z76.89 - Persons encountering health services in other specified circumstances Referrals 2 Cologuard Test Z12.11 - Encounter for screening for malignant neoplasm of colon Orthopedics Referral M19.90 - Unspecified osteoarthritis, unspecified site Medications: New cyclobenzaprine 5 mg PO TID PRN 30 tabs 0RF muscle spasm 10 days Patient Instructions: - Go to the lab downstairs today for the blood tests ordered. - Continue taking Celebrex and Simvastatin as prescribed. - Try the cyclobenzaprine as directed for muscle relaxation. - Stay active with current exercise routine, including gym and hockey. - Expect a stool test kit to be sent to you; complete it as directed. - Follow up if you experience any new or worsening symptoms. - Notify the clinic if you have any questions or concerns regarding your medications or test results.
[2024-11-24 09:14] VITALS: BP 108/76; PULSE 77; RESP 16; TEMP 36.7; O2SAT 95; BMI 22.8
== END 2024-11-24 09:53 | disposition home or self-care (01) ==
PROVIDERS: PCP Student in an Organized Health Care Education/Training Program; Visit Provider Student in an Organized Health Care Education/Training Program
DX: R63.4 Abnormal weight loss (principal); E78.5 Hyperlipidemia, unspecified; M19.90 Unspecified osteoarthritis, unspecified site; G62.9 Polyneuropathy, unspecified

== ENCOUNTER → 2024-11-24 09:05 | Outpatient (BNVA) | payer MEDICARE, SELFPAY | PROVIDERS: PCP Family Medicine; Visit Provider Student in an Organized Health Care Education/Training Program | DX: R63.4 Abnormal weight loss (principal); E78.5 Hyperlipidemia, unspecified; M19.90 Unspecified osteoarthritis, unspecified site; G62.9 Polyneuropathy, unspecified | CPT/HCPCS: 96127; 99202 ==

== ENCOUNTER 2024-11-24 09:53 | Outpatient (REF) | payer MEDICARE, SELFPAY ==
--- NOTE | ~2024-11-24 | XR_ITS ---
EXAMINATION: XR WRIST, RIGHT CLINICAL INFORMATION: M19.90 - Unspecified osteoarthritis, unspecified site COMPARISON: X-ray 02/13/2022 TECHNIQUE: Four views of the right wrist. FINDINGS: No evidence of acute fracture. Multifocal joint space narrowing. Severe radiocarpal osteoarthritis. Severe first CMC arthritis, joint space loss, osteophytes, sclerosis. Severe triscaphe joint arthritis. There is intercarpal joint space narrowing. Ulnar negative variance. No erosions. No abnormal soft tissue calcifications. XR/XR wrist RT min 3V IMPRESSION: Multifocal advanced arthritis, as detailed above. Interval worsening as compared to the prior study. Electronically signed by: Viktor Trevino MD 11/24/2024 10:37 AM EDT
[2024-11-24 12:10] LABS: MANUAL DIFF FLAG NO
[2024-11-24 12:17] LABS: Hematocrit 42.7 % (42.0-52.0); Hemoglobin 14.6 g/dl (14.0-18.0); Imm Gran Abs Auto 0.03 X10*3/uL (0.00-0.03); Imm Gran Pct Auto 0.4 % (0.0-0.4); Lymphocytes Absolute Auto 1.2 X10*3/uL (1.2-4.9); Mean Corpuscular HGB Conc 34.2 g/dl (31.0-36.0); Mean Corpuscular Hemoglobin 31.9 pg (27.0-33.0); Mean Corpuscular Volume 93.2 fL (80.0-98.0); NRBC Abs Auto 0.000 X10*3/uL (0.0-0.012); NRBC Pct Auto 0.0 /100WBC (0.0-0.2); Platelet Count 233 X10*3/uL (160-400); Red Blood Count 4.58 X10*6/uL (4.60-5.80); White Blood Count 7.1 X10*3/uL (4.8-10.8)
[2024-11-24 12:41] LABS: PSA,Total (Free>4and<10) 0.72 ng/mL (0.00-4.00)
[2024-11-24 12:45] LABS: Alanine Aminotransferase 19 U/L (0-40); Albumin Level 4.4 g/dL (3.5-5.0); Alkaline Phosphatase 86 U/L (39-117); Anion Gap 8 (12-20); Aspartate Amino Transferase 27 U/L (5-37); Blood Urea Nitrogen 20 mg/dL (9-16); Calcium 9.1 mg/dL (8.4-10.2); Carbon Dioxide 29 mmol/L (22-29); Chloride 108 mmol/L (96-108); Estimated Glomerular Filt Rate > 60; Potassium 4.3 mmol/L (3.3-5.1); Sodium 141 mmol/L (135-145); Total Protein 6.5 g/dL (6.5-8.0)
== END 2024-11-24 09:54 | disposition home or self-care (01) ==
LOC: HO.10HDL 09:53
PROVIDERS: PCP Student in an Organized Health Care Education/Training Program; Visit Provider Student in an Organized Health Care Education/Training Program
DX: M19.031 Primary osteoarthritis, right wrist (principal); Z76.89 Persons encountering health services in other specified circumstances; Z12.5 Encounter for screening for malignant neoplasm of prostate; Z13.1 Encounter for screening for diabetes mellitus; Z13.29 Encounter for screening for other suspected endocrine disorder
CPT/HCPCS: 36415; 73110; 80053; 82306; 83036; 84153; 84443; 85025

== ENCOUNTER → 2024-11-24 10:06 | Outpatient (BNV) | payer MEDICARE, SELFPAY | PROVIDERS: PCP Student in an Organized Health Care Education/Training Program; Visit Provider Radiology Diagnostic Ultrasound | DX: M19.031 Primary osteoarthritis, right wrist (principal) | CPT/HCPCS: 73110 ==

== ENCOUNTER 2024-12-15 08:05 | Outpatient (AMB) | payer MEDICARE, SELFPAY ==
--- OUTSIDE RECORDS SUMMARY | 2015-09-28 | XMS_ITS | Encounter Summary ---
Author Organization [facility] Address [address] [place] [phone] Phone Care Team Providers Care Meat Loiner Name Role Phone Unavailable Primary Care Provider Unavailabl e Reason for Visit * MRI/CAT Scan - Closed Specialty Diagnoses / Procedures Referred By Errol t Referred To Contact Procedures CT Upper Extremity Outside (No Interpretation) Tariq Elliott Jp, MD [address] [facility] [address] [place] [address] Phone: tel: fax: mailto:[email or web address] Referral ID Status Reason Start Date Expiration Date Visits Re quested Visits Authorized [id number] Closed 02/09/2016 02/08/2017 1 1 Encounter Details Date Type Department Care Team (Late st Contact Info) Description 09/28/2015 Hospital Encounter [facility] [address] [place] [address] Tariq Elliott Jp, MD [address] [facility] [place] [address] [email or web address] Social History Tobacco Use Types Packs/Day Years [...] (No Interpretation) (09/28/2015 12:00 AM EDT) Narrative [facility] INTER[facility]ES - 02/09/2016 8:03 AM EST This study is for PACS storage only and not for interpretation. us Tariq Elliott MD IMG OUTSIDE IMAGING W/OUT INTER PRETATION Final Result [facility] documented in this encounter Visit Diagnoses Not on filedocumented in this encounter Additional Source Comments The information contained in this document represents components of the legal health record. It is not the complete legal health record.[facility]
[2024-12-15 08:08] VITALS: BP 118/70; PULSE 74; TEMP 36.4; O2SAT 97; BMI 23.4
--- NOTE | 2024-12-15 08:08 | MHC.PC.OV ---
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 Required: No Accompanied by: Self / Same As Patient Allergies No Known Allergies Allergy (Verified 12/15/24 08:08) Tobacco use date assessed: 12/15/24 Fall risk assessment: No Falls in past year Last assessed Fall Risk: 12/15/24 Dental Screening Dental Screen Date: 12/15/24 Did you have a dental visit in the last 12 months?: Yes Did you have a dental problem in the last 6 months where you did not have access to dental care?: No HPI HPI Comments History of Present Illness Details The patient is a 69-year-old male presenting for follow up on multiple orthopedic issues and unintentional weight loss. He had previously experienced weight loss, but reports having regained 4 pounds recently by increasing his food intake, including more ice cream. He attributes the prior weight loss to a high level of physical activity, including playing hockey up to three nights a week and going to the gym, without adequate caloric intake. A stool sample was submitted approximately 1.5 to 2 weeks ago, with results still pending. The patient reports new onset neck pain after being cross-checked during a hockey game, which he felt as a stinger in the back of his neck. Symptoms progressed over a couple of days, and on Friday morning, he woke up with severe neck stiffness, unable to move. He is experiencing numbness, a burning sensation in four fingers of one hand, and tingling that travels from his neck down his arm. Regarding his wrist, a prior x-ray showed osteoarthritis, and he has an orthopedic appointment scheduled for January 08. He has a history of carpal tunnel surgery and reports symptoms that feel different from his prior carpal tunnel but are suggestive of recurrence, including tingling fingertips. The patient reports a recurrence of low back pain three weeks ago. He underwent an Intracept procedure in June, which provided relief for approximately five months. He also notes his knees were evaluated by an agriculture extension specialist with an x-ray and MRI, which were both normal. Despite normal imaging, he reports persistent tightness in his knees since his knee surgeries. Medical History: - Arthritis - Carpal tunnel syndrome - Low back pain - Vitamin D deficiency - Unintentional weight loss (resolved) Surgical History: - Carpal tunnel surgery - Shoulder replacement - Knee replacement - Intracept procedure for low back pain (June) Medications: - Celebrex for arthritis - Cyclobenzaprine - Vitamin D, taken once a week Diagnostic Results: - Blood work: Overall unremarkable. - Wrist x-ray: Showed osteoarthritis. - Knee x-ray and MRI: Normal, joints and alignment are good. - Stool test: Results are pending. Social History: - Exercise: The patient is highly active, playing hockey up to three nights a week and also going to the gym. - Nutrition: He reports eating more recently, including ice cream, which has led to a 4-pound weight gain after a period of weight loss. [facility] Medical History (Updated 12/15/24 @ 08:37 by Rashawn Patterson MD) Vitamin D deficiency Low back pain Neck pain Unintentional weight loss Neuropathy Hyperlipidemia Left inguinal hernia (12/31/22) PVC (premature ventricular contraction) Tremor Eczema Osteoarthritis Cervical radiculopathy Chronic back pain Elevated cholesterol Right groin pain Left inguinal hernia Arthritis Surgical History H/O inguinal hernia repair (12/31/22) Hx of total knee arthroplasty History of surgery Hx of carpal tunnel repair Hx of shoulder surgery Hx of arthroscopic knee surgery H/O colonoscopy (~06/15/15) History of hernia repair Family History (Updated 12/15/24 @ 08:15 by Danielle Mendoza MA) Mother No problems noted. Father No problems noted. Social History Housing: House Alcohol intake: unknown Patient Tobacco Use Status: Never used Tobacco e-Cigarette/Vaping Use: Never Used service: No Current occupational status: retired Cognitive needs: No Hearing needs: No Vision needs: No Questionnaire PHQ-9 Over the last 2 weeks, how often have you been bothered by any of the following problems? 1. Little interest or pleasure in doing things: not at all 2. Feeling down, depressed, or hopeless: not at all 3. Trouble falling or staying asleep, or sleeping too much: not at all 4. Feeling tired or having little energy: not at all 5. Poor appetite or overeating: not at all 6. Feeling bad about yourself - or that you are a failure or have let yourself or your family down: not at all 7. Trouble concentrating on things, such as reading the newspaper or watching television: not at all 8. Moving or speaking so slowly that other people could have noticed. Or the opposite - being so fidgety or restless that you have been moving around a lot more than usual: not at all 9. Thoughts that you would be better off or of hurting yourself in some way: not at all Total score: 0 Source: Developed by Drs. Bravo Thomas, Jennifer Dumont, Alex Pacheco and colleagues, with an educational jose from [employer]. Thrive Questionnaire Date Thrive assessed: 12/15/24 I am a: Patient Within the past 12 months, did the food you bought not last and you didn't have the money to get more?: Never true Within the past 12 months, did you worry whether your food would run out before you got money to buy more?: Never true Do you have trouble paying for medicines?: No Do you have trouble getting transportation to medical appointments?: No Do you have trouble paying your heating and electricity bill?: No Do you have trouble taking care of your child, family member or friend?: No Do you have trouble with day-to-day activities such as bathing, preparing meals, shopping, managing finances, etc.?: No Are you currently unemployed and looking for a job?: No Are you interested in more education?: No THRIVE Score: 0 AUDIT C Alcohol Use Questionnaire (AUDIT-C) 1. How often do you have a drink containing alcohol?: Monthly or less 2. How many drinks containing alcohol do you have on a typical day when you are drinking?: 1 or 2 3. How often do you have six or more drinks on one occasion?: Less than monthly Total Score: 2 ZAIRA-7 AMB Questionnaire ZAIRA-7 Date ZAIRA - 7 assessed: 12/15/24 Feeling nervous, anxious, or on edge: 0 = Not at all Not being able to stop or control worryin = Not at all Worrying too much about different things: 0 = Not at all Trouble relaxin = Not at all Being so restless that it is hard to sit still: 0 = Not at all Becoming easily annoyed or irritable: 0 = Not at all Feeling afraid as if something awful might happen: 0 = Not at all Total ZAIRA-7 score (0-4 normal; 5-9 mild; 10-14 moderate; 15-21 severe): 0 Source: Developed by Drs. Bravo Thomas, Jennifer Dumont, Alex Pacheco and colleagues, with an educational jose from [employer]. Review of Systems Narrative - Constitutional: Denies ongoing weight loss, reports recent weight gain of 4 pounds. - Musculoskeletal: Reports neck pain and stiffness, low back pain, wrist pain, and knee tightness. - Neurological: Reports numbness, tingling, and a burning sensation in four fingers of one hand, as well as tingling radiating down the arm. All systems reviewed & are unremarkable except as reviewed in HPI and above Physical exam (Primary Care) Vital Signs: Last Vital Signs Temp 97.6 F 12/15/24 08:08 Pulse 74 12/15/24 08:08 BP 118/70 12/15/24 08:08 Pulse Ox 97 12/15/24 08:08 Oxygen Delivery Method Room Air 12/15/24 08:08 BMI result Body Mass Index 23.4 Tobacco/Smoking Status: Tobacco use Status Tobacco use date assessed 12/15/24 12/15/24 08:09 Patient Tobacco Use Status Never used Tobacco 12/15/24 08:09 e-Cigarette/Vaping Use Never Used 12/15/24 08:09 PHQ-9: PHQ-9 Score PHQ-9: Total score 0 12/15/24 08:09 Thrive Assessment: Date of Thrive Assessment Date Thrive assessed 12/15/24 12/15/24 08:09 Narrative General: +Alert and oriented, Well nourished, No acute distress. Eye: Pupils are equal, round and reactive to light, Intact accommodation, Extraocular movements are intact, Normal conjunctiva, Vision unchanged. HENT: Normocephalic, Atraumatic, Tympanic membranes are clear, Normal hearing, Oral mucosa is moist, No pharyngeal erythema, Ear canals patent. Respiratory: Lungs CTA bilaterally, No wheeze, Respirations are non-labored. Cardiovascular: Regular rate, Regular rhythm, S1 auscultated, S2 auscultated, No murmur, Good pulses equal in all extremities, Normal peripheral perfusion, No edema. Gastrointestinal: Soft, Non-tender, Non-distended, Normal bowel sounds, No organomegaly. Musculoskeletal: Normal range of motion, Normal strength, No tenderness, No swelling, No deformity, Normal gait. Integumentary: Warm, Dry, Ponder, Intact. Neurologic: Alert, Oriented, Normal sensory, Normal motor function, No focal defects, Cranial Nerves II-XII are grossly intact, Normal deep tendon reflexes. Psychiatric: Cooperative, Appropriate mood & affect, Normal judgment. Coding Level of Care Code Est Pt Level 4 (17706) Complex EM visit Add On G2211 Diagnoses Neck pain M54.2 Arthritis M19.90 Chronic right-sided low back pain with right-sided sciatica M54.41; G89.29 Chronicity: chronic Back pain laterality: right Sciatica presence: with sciatica Sciatica laterality: sciatica of right side Unintentional weight loss R63.4 Hyperlipidemia, unspecified hyperlipidemia type E78.5 Hyperlipidemia type: unspecified Vitamin D deficiency E55.9 Assessment & Plan Assessment & Plan (1) Neck pain: Comment: - The patient's new onset neck pain, stiffness, and radiating numbness/tingling in the hand began after a hockey injury. - An x-ray of the neck will be obtained to evaluate for bony injury. - A referral for physical therapy for the shoulders is being placed, to help alleviate symptoms, however if he has no improvement will obtain MRI imaging - The patient was advised to report any new or worsening muscle weakness in the hands. Code(s): M54.2 - Cervicalgia Category: Medical (2) Arthritis: Comment: - The patient has known osteoarthritis of the wrist confirmed by x-ray. - His current symptoms of tingling fingertips and an electrical sensation upon palpation are highly suggestive of recurrent carpal tunnel syndrome. - He will proceed with his orthopedic appointment on January 08 to address these issues. - Also has generalized arthritis and being managed with Celebrex Code(s): M19.90 - Unspecified osteoarthritis, unspecified site Category: Medical (3) Low back pain: Comment: - The patient's pain has returned approximately 5 months after an Intracept procedure. - He is advised to contact the specialist at [email or web address] who performed the procedure to report the recurrence of symptoms and seek further evaluation. - Advised to continue PRN Cyclobenzaprine Code(s): M54.50 - Low back pain, unspecified Category: Medical Qualifiers: Chronicity: chronic Back pain laterality: right Sciatica presence: with sciatica Sciatica laterality: sciatica of right side Qualified Code(s): M54.41 - Lumbago with sciatica, right side; G89.29 - Other chronic pain (4) Unintentional weight loss: Comment: - Has had about a 4 pound weight gain since his last visit and labs overall have been unremarkable - Still awaiting results of Cologuard and will determine if further imaging is needed Code(s): R63.4 - Abnormal weight loss Category: Medical (5) Hyperlipidemia: Comment: - Continued Simvastatin therapy. - Last lipid panel from April reviwed Code(s): E78.5 - Hyperlipidemia, unspecified Category: Medical Qualifiers: Hyperlipidemia type: unspecified Qualified Code(s): E78.5 - Hyperlipidemia, unspecified (6) Vitamin D deficiency: Comment: - Per last blood work, [place] [address] [place] Weekly Code(s): E55.9 - Vitamin D deficiency, unspecified Category: Medical Plan: Health Maintenance: - Awaiting results of a stool test submitted approximately two weeks ago. - Continuing weekly vitamin D supplementation for vitamin D deficiency. - Discussed medication safety, specifically the risks of long-term and high-dose NSAID use on kidney function, and reinforced that Celebrex is a safer option for his arthritis. Patient was informed and verbally consented to the use of an ambient scribe for clinic note documentation during this visit. Plan I have discussed the new onset of neck pain with the patient, which is likely related to his recent hockey injury. I have ordered a neck x-ray to rule out any acute fracture or malalignment and placed a referral for physical therapy, which will help with his symptoms and facilitate any future imaging needs. I instructed him to follow up with his agriculture extension specialist for his wrist pain, and I informed him that his symptoms are suspicious for a recurrence of carpal tunnel syndrome. Regarding his low back pain, I advised him to contact the specialist who performed his Intracept procedure, as the pain has returned. We reviewed his medications, and I am providing a refill for his cyclobenzaprine. We discussed that while his Celebrex may feel less effective, it remains the safest long-term NSAID option for him, and stronger alternatives carry significant risks such as kidney damage. I advised him to continue his weekly vitamin D for his deficiency. The patient will schedule a follow-up appointment in two months. Orders: Orders XR cervical spine 4V Today G62.9 - Polyneuropathy, unspecified, M19.90 - Unspecified osteoarthritis, unspecified site PT Evaluation and Treatment Today M54.2 - Cervicalgia, R29.898 - Other symptoms and signs involving the musculoskeletal system Medications: Refilled cyclobenzaprine 5 mg PO TID PRN 30 tabs 0RF muscle spasm 10 days Patient Instructions: - Please go to the imaging center to get an X-ray of your neck. - We have sent a referral for you to begin physical therapy for your shoulders at [facility]. - Keep your orthopedics appointment in about three weeks to discuss your wrist pain and the numbness and tingling in your hand. - Please contact the specialist's office that performed your back procedure to let them know your pain has returned. - Continue taking your weekly Vitamin D supplement. - Continue taking Celebrex as prescribed for arthritis. - I have sent a refill for your cyclobenzaprine to your pharmacy. - Go to the emergency room or call us immediately if you start to lose muscle strength in your hands. - Please schedule a follow-up appointment to see me in two months.
--- OUTSIDE RECORDS SUMMARY | 2024-12-15 08:16 | XMS_ITS | Encounter Summary ---
Author Organization [facility] Address [address] [place] [address] Phone Care Team Providers Care Used Car Lot Attendant Name Role Phone John Brady MD Primary Care Provider Encounter Details Date Type Department Care Team (Late st Contact Info) Description 02/09/[address], [facility] - [address], [address] [place] [address] Social History Tobacco Use Types Packs/Day Years Used Date Smoking Tobacco: Never Sex and Gender Information Value Date Recorded Sex Assigned at Male 04/08/2022 9:33 AM EST Legal Sex Male 10:20 AM EDT Gender Identity Male 04/08/2022 9:33 AM EST Sexual Orientation Straight 04/08/2022 9: 34 AM EST documented as of this encounter Plan of Treatment Not on file documented as of this encounter Visit Diagnoses Not on filedocumented in this encounter Care Teams Used Car Lot Attendant Relationship Specialty Start Date End Date John Brady MD [address] [place] [address] [place] [address] PCP - General Internal Medicine 12/06/15 documented as of this encounter Additional Source Comments The information contained in this document represents components of the legal health record. It is not the complete legal health record.[facility]
--- OUTSIDE RECORDS SUMMARY | 2024-12-15 08:16 | XMS_ITS | Encounter Summary ---
Author Organization [facility] Address [address] [place] [phone] Phone Care Team Providers Care Gear Hobber Operator Name Role Phone John Brady MD Primary Care Provider Encounter Details Date Type Department Care Team ([facility] st Contact Info) Description 06/27/2022 Transcribe Orders [facility] Out[facility] Care, Radio Flouroscopy [address] [place] [id number] [address] [place] [id number] [email or web address] Social History Tobacco Use Types Packs/Day Years Used Date Smoking Tobacco: Never Smokeless Tobacco: Never Alcohol Use Standard Drinks/Week Comments Yes 0 (1 standard drink = 0.6 oz pur e alcohol) Education Answer Date Recorded Are you interested in more education? Not on shahrzad e 06/14/2022 Are you concerned about learning? Not on file 06/14/2022 No 06/14/2022 No 06/14/2022 Sex and Gender Information Value Date Recorded Sex Assigned at Male 04/08/2022 9:33 AM EST Legal Sex Male 10:20 AM EDT Gender Identity Male 04/08/2022 9:33 AM EST Sexual Orientation Straight 04/08/2022 9: 34 AM EST documented as of this encounter Functional Status * Patient is deaf or has serious difficulty with hearing Answer Date of Assessment Author No 07/03/2016 2:34 PM EDT Karin Early CNP * Patient is blind or has serious difficulty with seeing, even when wearing glasses Answer Date of Assessment Author No 07/03/2016 2:34 PM EDT Karin Early CNP * Patient has serious difficulty walking or climbing stairs (5yr old or older) Answer Date of Assessment Author No 07/03/2016 2:34 PM EDT Karin Early CNP * Patient has serious difficulty dressing or bathing (5yr old or older) Answer Date of Assessment Author No 07/03/2016 2:34 PM EDT Karin Early CNP * Patient has serious difficulty doing errands alone such as visiting a doctor???s office or shopping, due to physical, mental, or emotional condition (15 years old or older) Answer Date of Assessment Author No 07/03/2016 2:34 PM Karin Gregg CNP documented as of this encounter Mental Status * Patient has serious difficulty concentrating, remembering, or making decisions due to physical, mental, or emotional condition Answer Entry Date Author No 07/03/2016 2:34 PM Karin Gregg CNP documented in this encounter Plan of Treatment Not on file documented as of this encounter Visit Diagnoses Not on filedocumented in this encounter Care Teams Gear Hobber Operator Relationship Specialty Start Date End Date John Brady MD [address] [place] [address] [place], [place] [address] PCP - General Internal Medicine 12/06/15 documented as of this encounter Additional Source Comments The information contained in this document represents components of the legal health record. It is not the complete legal health record.[facility]
--- OUTSIDE RECORDS SUMMARY | 2024-12-15 08:16 | XMS_ITS | Encounter Summary ---
Author Organization [facility] Address [address] [place] [phone] Phone Care Team Providers Care Home School Coordinator Name Role Phone John Brady MD Primary Care Provider Encounter Details Date Type Department Care Team (Late st Contact Info) Description 02/09/2016 Procedure Pass [facility] [address] [place] [address] Social History Tobacco Use Types Packs/Day Years [...] on filedocumented in this encounter Care Teams Home School Coordinator Relationship Specialty Start Date End Date John Brady MD [address] [place] [address] [place] [address] PCP - General Internal Medicine 12/06/15 documented as of this encounter Additional Source Comments The information contained in this document represents components of the legal health record. It is not the complete legal health record.[facility]
--- OUTSIDE RECORDS SUMMARY | 2024-12-15 08:16 | XMS_ITS | Encounter Summary ---
Author Organization [facility] Address [address] [place] [address] Phone Care Team Providers Care Rug Setter Velvet Name Role Phone John Brady MD Primary Care Provider Encounter Details Date Type Department Care Team (Latest Contact Info) Description 01/30/2018 Ancillary Orders [facility] Orth[facility] Outpatient Practice [address] [facility], [address], [address] [place] [address] Tariq Elliott Jp, MD [address] [place], [place] [address] [id number] [email or web address] Pain in joint, shoulder region Social History Tobacco Use Types Packs/Day Years Used Date Smoking Tobacco: Never Smokeless Tobacco: Never Alcohol Use Standard Drinks/Week Comments Yes 0 (1 standard drink = 0.6 oz pur e alcohol) Sex and Gender Information Value Date Recorded [...] Author No 07/03/2016 2:34 PM EDT Karin Early, NA * Patient is blind or has serious difficulty with seeing, even when wearing glasses Answer Date of Assessment Author No 07/03/2016 2:34 PM Karin Gregg CNP * Patient has serious difficulty walking or climbing stairs (5yr old or older) Answer Date of Assessment Author No 07/03/2016 2:34 PM Karin Gregg CNP * Patient has serious difficulty dressing or bathing (5yr old or older) Answer Date of Assessment Author No 07/03/2016 2:34 PM Karin Gregg CNP * Patient has serious difficulty doing [...] on file documented as of this encounter Results * XR SHOULDER 2 VIEWS (LEFT) (01/30/2018 11:36 AM EST) Anatomical Region Laterality Modality Shoulder Left Radiographic Toma ging 01/30/2018 2:08 PM EST Impressions 01/30/2018 2:21 PM EST Left total shoulder arthroplasty and right reverse shoulder arthroplasty without evidence of hardware complication. Narrative 01/30/2018 2:21 PM EST TECHNIQUE: XR SHOULDER 2 OR MORE VIEWS (LEFT), XR SHOULDER 2 OR MORE VIEWS (RIGHT) COMPARISON: XR SHOULDER 2 OR MORE VIEWS (LEFT) 02/07/2017. Right shoulder xray 07/22/17 FINDINGS: Left shoulder: Total shoulder arthroplasty in place without evidence of perihardware lucency or hardware complication. No fracture or dislocation. Right shoulder: Intact reverse shoulder arthroplasty without evidence of perihardware lucency or hardware complication. No fracture or dislocation. Procedure Note Lorna Moncada MD - 01/30/2018 TECHNIQUE: XR SHOULDER 2 OR MORE VIEWS (LEFT), XR SHOULDER 2 OR MOREVIEWS (RIGHT) COMPARISON: XR SHOULDER 2 OR MORE VIEWS (LEFT) 02/07/2017. Right shoulderxray 07/22/17 FINDINGS: Left shoulder: Total shoulder arthroplasty in place without evidence of perihardware lucency or hardware complication. No fracture ordislocation. Right shoulder: Intact reverse shoulder arthroplasty without evidence of perihardware lucency or hardware complication. No fracture ordislocation. IMPRESSION: Left total shoulder arthroplasty and right reverse shoulder arthroplastywithout evidence of hardware complication. us Tariq Elliott MD IMG XR UPPER EXTREMITY Final Re sult documented in this encounter Visit Diagnoses Diagnosis Pain in joint, shoulder region Pain in joint, shoulder region documented in this encounter Care Teams Rug Setter Velvet Relationship Specialty Start Date End Date John Brady MD [address] [place] [address] [place] [address] PCP - General Internal Medicine 12/06/15 documented as of this encounter Additional Source Comments The information contained in this document represents components of the legal health record. It is not the complete legal health record.[facility]
--- OUTSIDE RECORDS SUMMARY | 2024-12-15 08:16 | XMS_ITS | Encounter Summary ---
Author Organization [facility] Address [address] [place] [address] Phone Care Team Providers Care Standard Machine Stitcher Name Role Phone John Brady MD Primary Care Provider [phone] Encounter Details Date Type Department Care Team (Late st Contact Info) Description 02/09/[address], [facility] - [address], [address] [place] [address] Social History Tobacco Use Types Packs/Day Years [...] on filedocumented in this encounter Care Teams Standard Machine Stitcher Relationship Specialty Start Date End Date John Brady MD [address] [place] [address] [place] [address] PCP - General Internal Medicine 12/06/15 documented as of this encounter Additional Source Comments The information contained in this document represents components of the legal health record. It is not the complete legal health record.[facility]
--- OUTSIDE RECORDS SUMMARY | 2024-12-15 08:16 | XMS_ITS | Encounter Summary ---
Author Organization [facility] Address [address] [place] [address] Phone Care Team Providers Care Hospital Insurance Clerk Name Role Phone John Brady MD Primary Care Provider [phone] Encounter Details Date Type Department Care Team (Late st Contact Info) Description 02/09/2016 Procedure Pass [facility] [address] [place] [address] Social History Tobacco Use Types Packs/Day Years [...] on filedocumented in this encounter Care Teams Hospital Insurance Clerk Relationship Specialty Start Date End Date John Brady MD [address] [place] [address] [place] [address] PCP - General Internal Medicine 12/06/15 documented as of this encounter Additional Source Comments The information contained in this document represents components of the legal health record. It is not the complete legal health record.[facility]
--- OUTSIDE RECORDS SUMMARY | 2024-12-15 08:16 | XMS_ITS | Encounter Summary ---
Author Organization [facility] Address [address] [place] [address] Phone Care Team Providers Care Clerical Support Name Role Phone John Brady MD Primary Care Provider Encounter Details Date Type Department Care Team (Latest Contact Info) Description 07/31/[address] [facility] - Orthopaedics Outpatient Practice [address] [facility], 1st Floor, [address] [place] [address] Tariq Elliott Jp, MD [address] [place], [place] [address] [address] [email or web address] Pain in joint, shoulder region Social History [...] 07/03/2016 2:34 PM EDT Karin Early CNP documented as of this encounter Mental Status * Patient has serious difficulty concentrating, remembering, or making decisions due to physical, mental, or emotional condition Answer Entry Date Author No 07/03/2016 2:34 PM EDT Karin Early CNP documented in this encounter Plan of Treatment Not on file documented as of this encounter Results * XR Shoulder (Left) (07/31/2018 12:05 PM EDT) Anatomical Region Laterality Modality Shoulder Left Radiographic Toma ging 07/31/2018 3:06 PM EDT Impressions 07/31/2018 5:30 PM EDT No substantial change in a left shoulder total arthroplasty. ATTESTATION: I, Dr. Amaury Garcia as teaching physician, have reviewed the images for this case and if necessary edited the report originally created by Dr. Josy Garibay. Narrative 07/31/2018 5:30 PM EDT TECHNIQUE: XR SHOULDER 2 OR MORE VIEWS (LEFT) COMPARISON: 01/30/2018 left shoulder radiographs FINDINGS: There are redemonstrated postoperative changes status post left shoulder total arthroplasty. Hardware and alignment are unchanged compared to the prior study and there is no evidence of periprosthetic fracture or hardware loosening. Degenerative changes involve the acromioclavicular joint. Procedure Note Amaury Garcia MD - 07/31/2018 TECHNIQUE: XR SHOULDER 2 OR MORE VIEWS (LEFT) COMPARISON: 01/30/2018 left shoulder radiographs FINDINGS: There are redemonstrated postoperative changes status post left shouldertotal arthroplasty. Hardware and alignment are unchanged compared to the priorstudy and there is no evidence of periprosthetic fracture or hardwareloosening. Degenerative changes involve the acromioclavicular joint. IMPRESSION: No substantial change in a left shoulder total arthroplasty. ATTESTATION: I, Dr. Amaury Garcia as teaching physician, have reviewedthe images for this case and if necessary edited the report originally createdby Dr. Josy Garibay. us Tariq Elliott MD IMG XR UPPER EXTREMITY Final Re sult documented in this encounter Visit Diagnoses Diagnosis Pain in joint, shoulder region Pain in joint, shoulder region documented in this encounter Care Teams Clerical Support Relationship Specialty Start Date End Date John Brady MD [address] [place] [address] [place] [address] PCP - General Internal Medicine 12/06/15 documented as of this encounter Additional Source Comments The information contained in this document represents components of the legal health record. It is not the complete legal health record.[facility]
--- OUTSIDE RECORDS SUMMARY | 2024-12-15 08:16 | XMS_ITS | Encounter Summary ---
Author Organization [facility] Address [address] [place] [address] Phone Care Team Providers Care Trash Collector Supervisor Name Role Phone John Brady MD Primary Care Provider [phone] Encounter Details Date Type Department Care Team (Late st Contact Info) Description 07/02/2016 Procedure Pass [facility] PERIOPERATIVE DEPT [address] [place] [phone] Social History Tobacco Use Types Packs/Day Years [...] hearing Answer Date of Assessment Author No 07/02/2016 3:46 PM Harinder Charles MD * Patient is blind or has serious difficulty with seeing, even when wearing glasses Answer Date of Assessment Author No 07/02/2016 3:46 PM Harinder Charles MD * Patient has serious difficulty walking or climbing stairs (5yr old or older) Answer Date of Assessment Author No 07/02/2016 3:46 PM aHrinder Charles MD * Patient has serious difficulty dressing or bathing (5yr old or older) Answer Date of Assessment Author Yes 07/02/2016 3:46 PM Harinder Charles MD * Patient has serious difficulty doing errands alone such as visiting a doctor???s office or shopping, due to physical, mental, or emotional condition (15 years old or older) Answer Date of Assessment Author Yes 07/02/2016 3:46 PM Harinder Charles MD documented as of this encounter Mental Status * Patient has serious difficulty concentrating, remembering, or making decisions due to physical, mental, or emotional condition Answer Entry Date Author No 07/02/2016 3:46 PM Harinder Charles MD documented in this encounter Plan of Treatment Not on file documented as of this encounter Visit Diagnoses Not on filedocumented in this encounter Care Teams Trash Collector Supervisor Relationship Specialty Start Date End Date John Brady MD [address] [place] [address] Dr [place], [place] [address] PCP - General Internal Medicine 12/06/15 documented as of this encounter Additional Source Comments The information contained in this document represents components of the legal health record. It is not the complete legal health record.[facility]
--- OUTSIDE RECORDS SUMMARY | 2024-12-15 08:16 | XMS_ITS | Encounter Summary ---
Author Organization [facility] Address [address] [facility] [address] [place] [address] Phone Care Team Providers Care Technical Proposal Writer Name Role Phone John Brady MD Primary Care Provider Encounter Details Date Type Department Care Team (Late st Contact Info) Description 05/31/2022 Procedure Pass [facility] [place] [address] [facility], 6th [place] [address] Social History Tobacco Use Types Packs/Day Years [...] 2:34 PM Karin Gregg CNP * Patient is blind or has [...] on filedocumented in this encounter Care Teams Technical Proposal Writer Relationship Specialty Start Date End Date John Brady MD [address] [place] [address] [place] [address] PCP - General Internal Medicine 12/06/15 documented as of this encounter Additional Source Comments The information contained in this document represents components of the legal health record. It is not the complete legal health record.[facility]
--- OUTSIDE RECORDS SUMMARY | 2024-12-15 08:16 | XMS_ITS | Encounter Summary ---
Author Organization [facility] Address [address] [place] [address] Phone Care Team Providers Care Log Marker Name Role Phone John Brady MD Primary Care Provider Encounter Details Date Type Department Care Team (Late st Contact Info) Description 05/31/2022 Procedure [facility], Radio Flouroscopy [address] [place] [address] Social History Tobacco Use Types Packs/Day Years [...] on filedocumented in this encounter Care Teams Log Marker Relationship Specialty Start Date End Date John Brady MD [address] [place] [address] [place] [address] PCP - General Internal Medicine 12/06/15 documented as of this encounter Additional Source Comments The information contained in this document represents components of the legal health record. It is not the complete legal health record.[facility]
--- OUTSIDE RECORDS SUMMARY | 2024-12-15 08:17 | XMS_ITS | Encounter Summary ---
Author Organization [facility] Address [address] [place] [address] Phone Care Team Providers Care Wastewater Process Engineer Name Role Phone John Brady MD Primary Care Provider Encounter Details Date Type Department Care Team (Latest Contact Info) Description 02/09/2016 Ancillary Orders [facility] Department of Orthopaedic Surgery, Shoulder Service [address] [facility], 3rd Floor, [address] [place] [address] Tariq Elliott Jp, MD [address] [place] [address]-[address] [place] [address] [email or web address] Pain in joint of right shoulder Social History Tobacco Use Types Packs/Day Years [...] encounter Results * XR SHOULDER 2 VIEWS (BILATERAL) (02/09/2016 9:41 AM EST) Anatomical Region Laterality Modality Shoulder Left Radiographic Toma ging 02/09/2016 10:0 7 AM EST Impressions 02/09/2016 10:21 AM EST Severe bilateral glenohumeral osteoarthritis. Narrative 02/09/2016 10:21 AM EST XR SHOULDER 2 VIEWS (BILATERAL) COMPARISON: Outside CT UPPER EXTREMITY OUTSIDE (NO INTERPRETATION) 09/28/2015. FINDINGS: Right shoulder: There are severe degenerative and bony proliferative changes of the right glenohumeral joint, which demonstrates hbjh-ji-jmbs contact. No fracture or dislocation. Osteocartilaginous loose bodies are present. There are mild degenerative changes of the right AC joint. Left shoulder: There are severe degenerative and bony proliferative changes of the glenohumeral joint with near epwd-jp-oyow contact. No fracture or dislocation. There are mild degenerative changes of the right AC joint. Procedure Note Lg Haddad MD - 02/09/2016 XR SHOULDER 2 VIEWS (BILATERAL) COMPARISON: Outside CT UPPER EXTREMITY OUTSIDE (NO INTERPRETATION)09/28/2015. FINDINGS: Right shoulder: There are severe degenerative and bony proliferative changes of theright glenohumeral joint, which demonstrates znnx-ez-kgvn contact. No fractureor dislocation. Osteocartilaginous loose bodies are present. There are mild degenerative changes of the right AC joint. Left shoulder: There are severe degenerative and bony proliferative changes of theglenohumeral joint with near njai-gg-cdpf contact. No fracture or dislocation. Thereare mild degenerative changes of the right AC joint. IMPRESSION: Severe bilateral glenohumeral osteoarthritis. us Tariq Elliott MD IMG XR UPPER EXTREMITY Final Re sult documented in this encounter Visit Diagnoses Diagnosis Pain in joint of right shoulder Pain in joint of right shoulder documented in this encounter Care Teams Wastewater Process Engineer Relationship Specialty Start Date End Date John Brady MD [address] [place] [address] [place] [address] PCP - General Internal Medicine 12/06/15 documented as of this encounter Additional Source Comments The information contained in this document represents components of the legal health record. It is not the complete legal health record.[facility]
--- OUTSIDE RECORDS SUMMARY | 2024-12-15 08:17 | XMS_ITS | Clinical Summary ---
Author Organization [facility] Address [address] [place] [address] Phone Care Team Providers Care Reception Specialist Name Role Phone John Brady MD Primary Care Provider Allergies No known active allergies Medications simvastatin (ZOCOR) 10 MG tablet Take 40 mg by mouth every morning. Active celecoxib (CELEBREX) 400 MG capsule Take 400 mg by mouth daily. Active oxyCODONE 5 MG immediate release tablet Take 1-2 tablets (5-10 mg total) by mouth every 4 (four) hours as needed. Partial fill ok 30 tablet 3 Active Additional Information Patient not taking.Reported on 10/14/2022 docusate sodium (COLACE) 100 MG capsule Take 1 capsule (100 mg total) by mouth 2 (two) times a day. 30 capsule 1 3 Active Additional Information Patient not taking.Reported on 10/14/2022 senna (SENOKOT) 8.6 mg tablet Take 1 tablet by mouth daily. 20 tablet 1 3 Active Additional Information Patient not taking.Reported on 10/14/2022 ondansetron (ZOFRAN) 4 MG tablet Take 1 tablet (4 mg total) by mouth every 8 (eight) hours as needed for nausea. 10 tablet 3 Active Additional Information Patient not taking.Reported on 10/14/2022 Active Problems Problem Noted Date Diagnosed Date Shoulder arthritis 07/22/2017 Shoulder pain 07/02/2016 Hyperlipidemia 05/13/2016 Localized osteoarthritis of right shoulder Tendonitis of upper biceps tendon of right shoul dionna Social History Tobacco Use Types Packs/Day Years Used Date Smoking Tobacco: Never Smokeless Tobacco: Never Tobacco Cessation:Counseling Given: Not Answered Alcohol Use Standard Drinks/Week Comments Not Currently [...] Orientation Straight 04/08/2022 9: 34 AM EST Last Filed Vital Signs Vital Sign Reading Time Taken Comments Blood Pressure 131/84 09/04/2022 4:45 PM EDT Pulse 60 09/04/2022 4:45 PM EDT Temperature 36.6 C (97.8 F) 09/04/2022 4:45 PM EDT Respiratory Rate 30 09/04/2022 4:45 PM EDT Oxygen Saturation 95% 09/04/2022 4:45 PM EDT Inhaled Oxygen Concentration - - Weight 73.9 kg (163 lb) 09/04/2022 12:09 PM EDT Height 179.1 cm (5' 10.51 ) 09/04/2022 12:09 PM EDT Body Mass Index 23.05 09/04/2022 12:09 PM EDT Plan of Treatment Health Maintenance Due Date Last Done Comments Adult Td,Tdap Booster 1956 LIPID PANEL 1956 DEPRESSION SCREENING 1968 HEPATITIS C SCREENING 1974 COLOGUARD 2001 COLONOSCOPY 2001 COLORECTAL CANCER SCREENING 2001 FIT TEST 2001 FOBT 2001 SIGMOIDOSCOPY 2001 VIRTUAL COLONOSCOPY 2001 PNEUMOCOCCAL VACCINES (50+ years) (1 of 1 - PCV) 2006 ZOSTER VACCINES (1 of 2) 2006 INFLUENZA VACCINE (#1) 2024 COVID-19 VACCINE (3 - 2024-2 6 season) 2024 04/24/2020, 04/03/2020 RSV VACCINE (1 - 1-dose 75+ series) 07/29/2031 SMOKING STATUS SCREENING (On ce After 26 Yrs) Completed 10/14/2022 HEPATITIS A VACCINES Aged Out No long er eligible based on patient's age to complete this topic HIB VACCINES Aged Out No longer eligi ble based on patient's age to complete this topic MENINGOCOCCAL VACCINES (ACWY) Aged Out No longer eligible based on patient's age to complete this topic MENINGOCOCCAL VACCINES (B) Aged Out N o longer eligible based on patient's age to complete this topic Medical Devices Implanted Type Area Intermediate Accountant Device Identifier Shelf Expiration Date Model / Serial / Lot Plate Bone 420mm Button Sterile Titanium 7 Hole Ea - [id number] Implanted:Qty: 1 on 07/02/2016 by Tariq Elliott Jp, MD at [facility] Left: Shoulder SYNTHES [id number] / / Description:no lot# or exp d ate Screw Compression Screw 4.5x32 Reverse Shoulder 08 - [id number] Implanted:Qty: 1 on 07/22/2017 by Tariq Elliott Jp, MD at [facility] Right: Shoulder [employer] [id number] / / Description:no lot# or exp d ate Screw Compression Shoulder Tor# [id number] Reverse Shoulder 08 - [id number] Implanted:Qty: 1 on 07/22/2017 by Tariq Elliott Jp, MD at [facility] Right: Shoulder [employer] [id number] / / Description:no lot# or exp d ate Screw Locker Screw 4.5x23mm Reverse Shoulder 08 - [id number] Implanted:Qty: 2 on 07/22/2017 by Tariq Elliott Jp, MD at [facility] Right: Shoulder [employer] [id number] / / Description:no lot# or exp d ate Centered 36 Mm Reverse Shoulder 05 - [id number] Implanted:Qty: 1 on 07/22/2017 by Tariq Elliott Jp, MD at [facility] Right: Shoulder [employer] 01/31/2022 [id number] / [id number] / 29 Mm Diameter X 25 Mm Length Long Post Reverse Shoulder [id number] Implanted:Qty: 1 on 07/22/2017 by Tariq Elliott Jp, MD at [facility] Right: Shoulder [employer] 08/20/2021 [id number] / [id number] / Jaw Wires Hardware Bilateral: Knee Description:S/p knee replace ments Nucleus Cementless Sz3 Simpliciti Ea - [id number] Implanted:Qty: 1 on 07/02/2016 by Tariq Elliott Jp, MD at [facility] Left: Shoulder [employer] 04/12/2021 [id number] / [id number] / Cement Bone 40gr Palacos R Plus G Single Dose Miguel/1ea - [id number] Implanted:Qty: 1 on 07/02/2016 by Tariq Elliott Jp, MD at [facility] Left: Shoulder CHRISTIAN / DIV OF [employer] 01/17/2020 [id number] / / [id number] Aequalis Perform Glenoid Cortiloc M40 Shoulder 02 Nc - [id number] Implanted:Qty: 1 on 07/02/2016 by Tariq Elliott Jp, MD at [facility] Left: Shoulder [employer] 04/24/2021 [id number] / [id number] / Head Humeral Shoulder Simpliciti 83s30ta - [id number] Implanted:Qty: 1 on 07/02/2016 by Tariq Elliott Jp, MD at [facility] Left: Shoulder [employer] 03/16/2021 [id number] / [id number] / High Offset Reversed Tray + 0 Shoulder 03 - [id number] Implanted:Qty: 1 on 07/22/2017 by Tariq Elliott Jp, MD at [facility] Right: Shoulder [employer] 05/30/2022 [id number] / [id number] / 4b Ascend Flex Standard Ptc Humeral Stem Shoulder 14 - [id number] Implanted:Qty: 1 on 07/22/2017 by Tariq Elliott Jp, MD at [facility] Right: Shoulder [employer] 06/06/2022 [id number] / [id number] / Pin Guide 2.4k431if Aequalis Perform+ - [id number] Implanted:Qty: 1 on 07/22/2017 by Tariq Elliott Jp, MD at [facility] Shoulder [employer] 05/13/2022 [id number] / / [id number] Description:no implanted 36 Diameter Revision Reversed Insert+ 6/12.5 B Shoulder 04 - [id number] Implanted:Qty: 1 on 07/22/2017 by Tariq Elliott Jp, MD at [facility] Right: Shoulder [employer] 08/23/2021 [id number] / [id number] / Insurance [place] P[place] BLUE REPLACEMENT MEDICARE PART A & B [facility] MEDICARE PPO BLUE REPLACEMENT MEDICARE PART A & B [facility] MEDICARE PPO BLUE [address] [address] [place] [address] MEDICARE PPO BLUE REPLACEMENT [facility] MEDICARE PPO BLUE REPLACEMENT MEDICARE PART A & [place] [id number] [facility] MEDICARE PPO BLUE [place]PLACEMENT [address] [place] [address] MEDICARE PPO BLUE REPLACEMENT MEDICARE PART A & B [facility] MEDICARE PPO BLUE REPLACEMENT MEDICARE PART A & B [place] MEDICARE PPO BLUE REPLACEMENT MEDICARE PART A & B Advance Directives For more information, please contact: [phone] (9AM - 5PM [facility], Friday-Friday) * Full Code (Presumed) (Latest Code Status on File) Date Activated Date Inactivated Comments 07/22/2017 6:25 PM 07/23/2017 3:21 PM * Full Code (Presumed) Date Activated Date Inactivated Comments 07/02/2016 6:56 PM 07/04/2016 3:02 PM Care Teams Reception Specialist Relationship Specialty Start Date End Date John Brady MD [address] [place] [address] [facility] [address] PCP - General Internal Medicine 12/06/15 Additional Source Comments The information contained in this document represents components of the legal health record. It is not the complete legal health record.[facility]
--- OUTSIDE RECORDS SUMMARY | 2024-12-15 08:17 | XMS_ITS | Encounter Summary ---
Author Organization [facility] Address [address] [place] [address] Phone Care Team Providers Care Jewelry Sorter Name Role Phone John Brady MD Primary Care Provider Encounter Details Date Type Department Care Team (Late st Contact Info) Description 09/04/2022 Procedure Pass [facility] [address] [place] [address] Social History Tobacco Use Types Packs/Day Years [...] of Assessment Author No 07/03/2016 2:34 PM EDKarin White CNP * Patient is blind or has [...] on filedocumented in this encounter Care Teams Jewelry Sorter Relationship Specialty Start Date End Date John Brady MD [address] [place] [address] [place] [address] PCP - General Internal Medicine 12/06/15 documented as of this encounter Additional Source Comments The information contained in this document represents components of the legal health record. It is not the complete legal health record.[facility]
--- OUTSIDE RECORDS SUMMARY | 2024-12-15 08:17 | XMS_ITS | Encounter Summary ---
Author Organization [facility] Address [address] [place] [address] Phone Care Team Providers Care Rn Patient Care Name Role Phone John Brady MD Primary Care Provider Encounter Details Date Type Department Care Team (Late st Contact Info) Description 07/22/2017 Procedure Pass [facility] PERIOPERATIVE DEPT [address] [place] [phone] Social History Tobacco Use Types Packs/Day Years [...] 2:34 PM EDKarin White CNP * Patient has serious difficulty walking [...] on filedocumented in this encounter Care Teams Rn Patient Care Relationship Specialty Start Date End Date John Brady MD [address] [place] [address] [place] [address] PCP - General Internal Medicine 12/06/15 documented as of this encounter Additional Source Comments The information contained in this document represents components of the legal health record. It is not the complete legal health record.[facility]
--- OUTSIDE RECORDS SUMMARY | 2024-12-15 08:17 | XMS_ITS | Encounter Summary ---
Author Organization [facility] Address [address] [place] [address] Phone Care Team Providers Care Commercial Stripper Name Role Phone John Brady MD Primary Care Provider Encounter Details Date Type Department Care Team (Late st Contact Info) Description 02/09/2016 Procedure Pass [facility] [address] [place] [address] Social History Tobacco Use Types Packs/Day Years [...] on filedocumented in this encounter Care Teams Commercial Stripper Relationship Specialty Start Date End Date John Brady MD [address] [facility] [place] [address] PCP - General Internal Medicine 12/06/15 documented as of this encounter Additional Source Comments The information contained in this document represents components of the legal health record. It is not the complete legal health record.[facility]
== END 2024-12-15 08:32 | disposition home or self-care (01) ==
LOC: HO.HMCHD 08:06
PROVIDERS: PCP Student in an Organized Health Care Education/Training Program; Visit Provider Student in an Organized Health Care Education/Training Program
DX: M54.2 Cervicalgia (principal); M19.90 Unspecified osteoarthritis, unspecified site; M54.41 Lumbago with sciatica, right side; G89.29 Other chronic pain; R63.4 Abnormal weight loss; E78.5 Hyperlipidemia, unspecified; E55.9 Vitamin D deficiency, unspecified

== ENCOUNTER 2024-12-15 08:05 | Outpatient (REF) | payer MEDICARE, SELFPAY ==
--- NOTE | ~2024-12-15 | XR_ITS ---
EXAMINATION: XR CERVICAL SPINE CLINICAL INFORMATION: G62.9 - Polyneuropathy, unspecified COMPARISON: March 04, 2024 TECHNIQUE: AP oblique lateral and atlantoodontoid views. FINDINGS: Craniocervical junction is intact. Small marginal osteophyte formation, endplate sclerosis, decreased intervertebral disc height and endplate irregularities from C2 to C7 pronounced at C3-4 C5-6 and C6-7 levels. Bilateral neuroforamina stenosis secondary to posterior osteophyte formation from C3-4 to C5-6. No lytic or blastic lesions. No acute cortical disruption or gross malalignment. Metallic prosthesis in the shoulders no fully included in the ddgxi-xg-hpzm. Upper airway is patent. XR/XR cervical spine 4V IMPRESSION: Multilevel cervical spondylosis C3 C7 pronounced at C3-4, C5-6 and C6-7 levels resulting in bilateral neuroforamina stenosis. Electronically signed by: Sterling Balderrama MD 12/15/2024 08:53 AM EDT
== END 2024-12-15 08:06 | disposition home or self-care (01) ==
LOC: HO.XRAY 08:05
PROVIDERS: PCP Student in an Organized Health Care Education/Training Program; Visit Provider Student in an Organized Health Care Education/Training Program
DX: M54.41 Lumbago with sciatica, right side (principal); G62.9 Polyneuropathy, unspecified; M19.90 Unspecified osteoarthritis, unspecified site; M54.2 Cervicalgia; M53.82 Other specified dorsopathies, cervical region; G89.29 Other chronic pain; E78.5 Hyperlipidemia, unspecified; R63.4 Abnormal weight loss; E55.9 Vitamin D deficiency, unspecified; R29.898 Other symptoms and signs involving the musculoskeletal system
CPT/HCPCS: 72050; 96127; 99212

== ENCOUNTER → 2024-12-15 08:38 | Outpatient (BNV) | payer MEDICARE, SELFPAY | PROVIDERS: PCP Student in an Organized Health Care Education/Training Program; Visit Provider Radiology Diagnostic Radiology | DX: G62.9 Polyneuropathy, unspecified (principal); M47.812 Spondylosis without myelopathy or radiculopathy, cervical region; M48.02 Spinal stenosis, cervical region | CPT/HCPCS: 72050 ==

== ENCOUNTER 2025-01-12 08:10 | Outpatient (REF) | payer MEDICARE, SELFPAY ==
--- OUTSIDE RECORDS SUMMARY | 2015-09-27 23:00 | XMS_ITS | Encounter Summary ---
Author Organization [facility] Address [address] [place] [phone] Phone Care Team Providers Care Roustabout Pusher Name Role Phone Unavailable Primary Care Provider Unavailabl e Reason for Visit * MRI/CAT Scan - Closed Specialty Diagnoses / Procedures Referred By Errol t Referred To Contact Procedures CT Upper Extremity Outside (No Interpretation) Tariq Elliott Jp, MD [address] [facility] [address] [place] [address] Phone: tel: fax: mailto:[email or web address] Referral ID Status Reason Start Date Expiration Date Visits Re quested Visits Authorized [id number] Closed 02/09/2016 02/08/2017 1 1 Encounter Details Date Type Department Care Team (Late st Contact Info) Description 09/28/2015 Hospital Encounter [facility] [address] [place] [address] Tariq Elliott Jp, MD [address] [facility] [place] [address] [email or web address] Social History Tobacco Use Types Packs/Day Years Used Date Smoking Tobacco: Never Smokeless Tobacco: Never Alcohol Use Standard Drinks/Week Comments Not Currently 0 (1 standard drink = 0.6 oz pur e alcohol) Education Answer Date Recorded Are you interested in more education? Not on shahrzad e 06/14/2022 Are you concerned about learning? Not on file 06/14/2022 No 06/14/2022 No 06/14/2022 Digital Access Answer Date Recorded No 07/10/2022 No 07/10/2022 Reliable internet access at home? Not on file 07/10/2022 Device with a working camera? Not on file Intimate Partner Violence Answer Date R ecorded Are you denied basic needs s uch as food, clothing, or medical care? No 09/04/2022 In the past 12 months have y ou been in a relationship with a person who hurts, threatens, or tries to control you? No 09/04/2022 Are you denied basic needs s uch as food, clothing, or medical care? No 09/04/2022 In the past 12 months have y ou been in a relationship with a person who hurts, threatens, or tries to control you? No 09/04/2022 Sex and Gender Information Value Date Recorded Sex Assigned at Male 04/08/2022 9:33 AM EST Legal Sex Male 10:20 AM EDT Gender Identity Male 04/08/2022 9:33 AM EST Sexual Orientation Straight 04/08/2022 9: 34 AM EST documented as of this encounter Plan of Treatment Not on file documented as of this encounter Procedures Procedure Name Priority Date/Time Associated Diagnosis Comments CT UPPER EXTREMITY OUTSIDE (NO INTERPRETATION) Routine 09/28/2015 12:00 AM EDT documented in this encounter Results * CT Upper Extremity Outside (No Interpretation) (09/28/2015 12:00 AM EDT) Narrative [facility] - 02/09/2016 8:03 AM EST This study is for PACS storage only and not for interpretation. us Tariq Elliott MD IMG OUTSIDE IMAGING W/OUT INTER PRETATION Final Result [facility] documented in this encounter Visit Diagnoses Not on filedocumented in this encounter Additional Source Comments The information contained in this document represents components of the legal health record. It is not the complete legal health record.[facility]
--- OUTSIDE RECORDS SUMMARY | 2025-01-12 08:24 | XMS_ITS | Encounter Summary ---
Author Organization [facility] Address [address] [place] [address] Phone Care Team Providers Care Multimedia Artist Name Role Phone John Brady MD Primary Care Provider Encounter Details Date Type Department Care Team (Late st Contact Info) Description 05/31/2022 Procedure [facility], Radio Flouroscopy [address] [place] [address] Social History Tobacco Use Types Packs/Day Years [...] on filedocumented in this encounter Care Teams Multimedia Artist Relationship Specialty Start Date End Date John Brady MD [address] [place] [address] [place] [address] PCP - General Internal Medicine 12/06/15 documented as of this encounter Additional Source Comments The information contained in this document represents components of the legal health record. It is not the complete legal health record.[facility]
--- OUTSIDE RECORDS SUMMARY | 2025-01-12 08:24 | XMS_ITS | Encounter Summary ---
Author Organization [facility] Address [address] [facility] [address] [place] [address] Phone Care Team Providers Care Sheather Name Role Phone John Brady MD Primary Care Provider Encounter Details Date Type Department Care Team (Late st Contact Info) Description 05/31/2022 Procedure Pass [facility] - [place] 32 [facility], 6th [place] [address] Social History Tobacco Use Types Packs/Day Years [...] on filedocumented in this encounter Care Teams Sheather Relationship Specialty Start Date End Date John Brady MD [address] [place] [address] [place] [address] PCP - General Internal Medicine 12/06/15 documented as of this encounter Additional Source Comments The information contained in this document represents components of the legal health record. It is not the complete legal health record.[facility]
--- OUTSIDE RECORDS SUMMARY | 2025-01-12 08:24 | XMS_ITS | Encounter Summary ---
Author Organization [facility] Address [address] [place] [address] Phone Care Team Providers Care Cabin Furnishings Installer Name Role Phone John Brady MD Primary Care Provider Encounter Details Date Type Department Care Team (Late st Contact Info) Description 02/09/2016 Procedure Pass [facility] [address] [place] [address] Social History Tobacco Use Types Packs/Day Years [...] on filedocumented in this encounter Care Teams Cabin Furnishings Installer Relationship Specialty Start Date End Date John Brady MD [address] [place] [address] PCP - General Internal Medicine 12/06/15 documented as of this encounter Additional Source Comments The information contained in this document represents components of the legal health record. It is not the complete legal health record.[facility]
--- OUTSIDE RECORDS SUMMARY | 2025-01-12 08:24 | XMS_ITS | Encounter Summary ---
Author Organization [facility] Address [address] [place] [address] Phone Care Team Providers Care Weighing Station Operator Name Role Phone John Brady MD Primary Care Provider Encounter Details Date Type Department Care Team ([facility] st Contact Info) Description 06/27/2022 Transcribe Orders [facility], Radio Flouroscopy [address] [place] [address] [address] [place] [phone] [email or web address] Social History Tobacco Use Types Packs/Day Years [...] on filedocumented in this encounter Care Teams Weighing Station Operator Relationship Specialty Start Date End Date John Brady MD [address] [place] [address] Dr [place], [place] [address] PCP - General Internal Medicine 12/06/15 documented as of this encounter Additional Source Comments The information contained in this document represents components of the legal health record. It is not the complete legal health record.[facility]
--- OUTSIDE RECORDS SUMMARY | 2025-01-12 08:24 | XMS_ITS | Encounter Summary ---
Author Organization [facility] Address [address] [place] [address] Phone Care Team Providers Care Taxi Truck Driver Name Role Phone John Brady MD Primary Care Provider [phone] Encounter Details Date Type Department Care Team (Late st Contact Info) Description 07/02/2016 Procedure Pass [facility] [address] [place] [phone] Social History Tobacco Use Types Packs/Day Years [...] Entry Date Author No 07/02/2016 3:46 PM aHrinder Charles MD documented in this encounter Plan of Treatment Not on file documented as of this encounter Visit Diagnoses Not on filedocumented in this encounter Care Teams Taxi Truck Driver Relationship Specialty Start Date End Date John Brady MD [address] [place] [address] Dr [place], [place] [address] PCP - General Internal Medicine 12/06/15 documented as of this encounter Additional Source Comments The information contained in this document represents components of the legal health record. It is not the complete legal health record.[facility]
--- OUTSIDE RECORDS SUMMARY | 2025-01-12 08:24 | XMS_ITS | Encounter Summary ---
Author Organization [facility] Address [address] [place] [address] Phone Care Team Providers Care Assurance Manager Name Role Phone John Brady MD Primary Care Provider Encounter Details Date Type Department Care Team (Latest Contact Info) Description 01/30/2018 Ancillary Orders [facility] - Orthopaedics Outpatient Practice [address] [facility], 1st Floor, [address] [place] [address] Tariq Elliott Jp, MD [address] [place], [place] [address] [address] [email or web address] Pain in joint, shoulder region Social [...] Assessment Author No 07/03/2016 2:34 PM Karin Grgeg CNP documented as of this encounter Mental [...] region documented in this encounter Care Teams Assurance Manager Relationship Specialty Start Date End Date John Brady MD [address] [place] [address] [place] [address] PCP - General Internal Medicine 12/06/15 documented as of this encounter Additional Source Comments The information contained in this document represents components of the legal health record. It is not the complete legal health record.[facility]
--- OUTSIDE RECORDS SUMMARY | 2025-01-12 08:24 | XMS_ITS | Encounter Summary ---
Author Organization [facility] Address [address] [place] [address] Phone Care Team Providers Care Home Health Administrator Name Role Phone John Brady MD Primary Care Provider Encounter Details Date Type Department Care Team (Late st Contact Info) Description 02/09/2016 Procedure Pass [facility] [address] [place] [address] Social History Tobacco Use Types Packs/Day Years [...] filedocumented in this encounter Care Teams Home Health Administrator Relationship Specialty Start Date End Date John Brady MD [address] [place] [address] [place] [address] PCP - General Internal Medicine 12/06/15 documented as of this encounter Additional Source Comments The information contained in this document represents components of the legal health record. It is not the complete legal health record.[facility]
--- OUTSIDE RECORDS SUMMARY | 2025-01-12 08:24 | XMS_ITS | Encounter Summary ---
Author Organization [facility] Address [address] [place] [address] Phone Care Team Providers Care Vp Software Name Role Phone John Brady MD Primary Care Provider Encounter Details Date Type Department Care Team (Late st Contact Info) Description 02/09/[address] - [address], [address] [place] [address] Social History Tobacco Use Types Packs/Day Years [...] on filedocumented in this encounter Care Teams Vp Software Relationship Specialty Start Date End Date John Brady MD [address] [place] [address] [place] [address] PCP - General Internal Medicine 12/06/15 documented as of this encounter Additional Source Comments The information contained in this document represents components of the legal health record. It is not the complete legal health record.[facility]
--- OUTSIDE RECORDS SUMMARY | 2025-01-12 08:24 | XMS_ITS | Encounter Summary ---
Author Organization [facility] Address [address] [place] [address] Phone Care Team Providers Care Library Acquisitions Technician Name Role Phone John Brady MD Primary Care Provider Encounter Details Date Type Department Care Team (Late st Contact Info) Description 02/09/[address], [facility] - [address], [address] [place] [address] Social History Tobacco Use Types Packs/Day Years [...] on filedocumented in this encounter Care Teams Library Acquisitions Technician Relationship Specialty Start Date End Date John Brady MD [address] [place] [address] [place] [address] PCP - General Internal Medicine 12/06/15 documented as of this encounter Additional Source Comments The information contained in this document represents components of the legal health record. It is not the complete legal health record.[facility]
--- OUTSIDE RECORDS SUMMARY | 2025-01-12 08:24 | XMS_ITS | Encounter Summary ---
Author Organization [facility] Address [address] [place] [address] Phone Care Team Providers Care Configuration Management Consultant Name Role Phone John Brady MD Primary Care Provider Encounter Details Date Type Department Care Team (Late st Contact Info) Description 02/09/2016 Procedure Pass [facility] [address] [place] [address] Social History Tobacco Use Types Packs/Day Years [...] on filedocumented in this encounter Care Teams Configuration Management Consultant Relationship Specialty Start Date End Date John Brady MD [address] [place] [address] [place] [address] PCP - General Internal Medicine 12/06/15 documented as of this encounter Additional Source Comments The information contained in this document represents components of the legal health record. It is not the complete legal health record.[facility]
--- OUTSIDE RECORDS SUMMARY | 2025-01-12 08:24 | XMS_ITS | Encounter Summary ---
Author Organization [facility] Address [address] [place] [address] Phone Care Team Providers Care Candy Roller Name Role Phone John Brady MD Primary Care Provider Encounter Details Date Type Department Care Team (Latest Contact Info) Description 07/31/2018 Ancillary Orders [facility] - Orthopaedics Outpatient Practice [address] [facility], 1st Floor, [address] [place] [address] Tariq Elliott Jp, MD [address] [place], [place] [address] [address] [email or web address] Pain in joint, shoulder region Social [...] region documented in this encounter Care Teams Candy Roller Relationship Specialty Start Date End Date John Brady MD [address] [place] [address] [place] [address] PCP - General Internal Medicine 12/06/15 documented as of this encounter Additional Source Comments The information contained in this document represents components of the legal health record. It is not the complete legal health record.[facility]
--- OUTSIDE RECORDS SUMMARY | 2025-01-12 08:25 | XMS_ITS | Encounter Summary ---
Author Organization [facility] Address [address] [place] [address] Phone Care Team Providers Care Button Sawyer Name Role Phone John Brady MD Primary Care Provider Encounter Details Date Type Department Care Team (Latest Contact Info) Description 02/09/2016 Ancillary Orders [facility] Department of Orthopaedic Surgery, Shoulder Service [address] [facility], 3rd Floor, [address] [place] [address] Tariq Elliott Jp, MD [address] [place] [address]-[address] [place] [id number] [email or web address] Pain in joint of right shoulder Social [...] of the right glenohumeral joint, which demonstrates jvrc-mn-oeco contact. No fracture or dislocation. Osteocartilaginous loose bodies are present. There are mild degenerative changes of the right AC joint. Left shoulder: There are severe degenerative and bony proliferative changes of the glenohumeral joint with near mvfh-ex-cucg contact. No fracture or dislocation. There are mild degenerative changes of the right AC joint. Procedure Note Lg Haddad MD - 02/09/2016 XR SHOULDER 2 VIEWS (BILATERAL) COMPARISON: Outside CT UPPER EXTREMITY OUTSIDE (NO INTERPRETATION)09/28/2015. FINDINGS: Right shoulder: There are severe degenerative and bony proliferative changes of theright glenohumeral joint, which demonstrates glhx-wx-vxoh contact. No fractureor dislocation. Osteocartilaginous loose bodies are present. There are mild degenerative changes of the right AC joint. Left shoulder: There are severe degenerative and bony proliferative changes of theglenohumeral joint with near nvia-ru-ifim contact. No fracture or dislocation. Thereare mild degenerative changes of the right AC joint. IMPRESSION: Severe bilateral glenohumeral osteoarthritis. us Tariq Elliott MD IMG XR UPPER EXTREMITY Final Re sult documented in this encounter Visit Diagnoses Diagnosis Pain in joint of right shoulder Pain in joint of right shoulder documented in this encounter Care Teams Button Sawyer Relationship Specialty Start Date End Date John Brady MD [address] [place] [address] [place] [address] PCP - General Internal Medicine 12/06/15 documented as of this encounter Additional Source Comments The information contained in this document represents components of the legal health record. It is not the complete legal health record.[facility]
--- OUTSIDE RECORDS SUMMARY | 2025-01-12 08:25 | XMS_ITS | Encounter Summary ---
Author Organization [facility] Address [address] [place] [address] Phone Care Team Providers Care Colorist Formulator Name Role Phone John Brady MD Primary Care Provider Encounter Details Date Type Department Care Team (Late st Contact Info) Description 09/04/2022 Procedure Pass [facility] [address] [place] [address] Social History Tobacco Use Types [...] on filedocumented in this encounter Care Teams Colorist Formulator Relationship Specialty Start Date End Date John Brady MD [address] [place] [address] [place] [address] PCP - General Internal Medicine 12/06/15 documented as of this encounter Additional Source Comments The information contained in this document represents components of the legal health record. It is not the complete legal health record.[facility]
--- OUTSIDE RECORDS SUMMARY | 2025-01-12 08:25 | XMS_ITS | Encounter Summary ---
Author Organization [facility] Address [address] [place] [address] Phone Care Team Providers Care Climatology Professor Name Role Phone John Brady MD Primary Care Provider Encounter Details Date Type Department Care Team (Late st Contact Info) Description 07/22/2017 Procedure Pass [facility] [facility] [address] [place] [phone] Social History Tobacco Use Types Packs/Day Years [...] on filedocumented in this encounter Care Teams Climatology Professor Relationship Specialty Start Date End Date John Brady MD [address] [place] [address] [place] [address] PCP - General Internal Medicine 12/06/15 documented as of this encounter Additional Source Comments The information contained in this document represents components of the legal health record. It is not the complete legal health record.[facility]
--- OUTSIDE RECORDS SUMMARY | 2025-01-12 08:25 | XMS_ITS | Clinical Summary ---
Author Organization [facility] Address [address] [place] [address] Phone Care Team Providers Care Cloth Drier Name Role Phone John Brady MD Primary [...] this topic Medical Devices Implanted Type Area Fountain Roller Assembler Device Identifier Shelf Expiration Date Model / Serial / Lot Plate Bone 420mm Button Sterile Titanium 7 Hole Ea - [id number] Implanted:Qty: 1 on 07/02/2016 by Tariq Elliott Jp, MD at [facility] Left: Shoulder SYNTHES [id number] / / Description:no lot# or exp d ate Screw Compression Screw 4.5x32 Reverse Shoulder 08 - [id number] Implanted:Qty: 1 on 07/22/2017 by Tariq Elliott Jp, MD at [facility] Right: Shoulder [employer] [id number] / / Description:no lot# or exp d ate Screw Compression Shoulder Tor# [id number] Reverse Shoulder 08 - [id number] Implanted:Qty: 1 on 07/22/2017 by Tariq Elliott Jp, MD at [facility] Right: Shoulder [employer] [id number] / / Description:no lot# or exp d ate Screw Locker Screw 4.5x23mm Reverse Shoulder 08 - [id number] Implanted:Qty: 2 on 07/22/2017 by Tariq Elliott Jp, MD at [facility] Right: Shoulder [employer] [id number] / / Description:no lot# or exp d ate Centered 36 Mm Reverse Shoulder 05 - [id number] Implanted:Qty: 1 on 07/22/2017 by Tariq Elliott Jp, MD at [facility] Right: Shoulder [employer] 01/31/2022 [id number] / [id number] / 29 Mm Diameter X 25 Mm Length Long Post Reverse Shoulder [id number] Implanted:Qty: 1 on 07/22/2017 by Tariq Elliott Jp, MD at [facility] Right: Shoulder [employer] 08/20/2021 [id number] / [id number] / Jaw Wires Hardware Bilateral: Knee Description:S/p knee replace ments Nucleus Cementless Sz3 Simpliciti Ea - [id number] Implanted:Qty: 1 on 07/02/2016 by Tariq Elliott Jp, MD at [facility] Left: Shoulder [employer] 04/12/2021 [id number] / [id number] / Cement Bone 40gr Palacos R Plus G Single Dose Miguel/1ea - [id number] Implanted:Qty: 1 on 07/02/2016 by Tariq Elliott Jp, MD at [facility] Left: Shoulder CHRISTIAN / DIV OF [employer] 01/17/2020 [id number] / / [id number] Aequalis Perform Glenoid Cortiloc M40 Shoulder 02 Nc - [id number] Implanted:Qty: 1 on 07/02/2016 by Tariq Elliott Jp, MD at [facility] Left: Shoulder [employer] 04/24/2021 [id number] / [id number] / Head Humeral Shoulder Simpliciti 17o56oi - [id number] Implanted:Qty: 1 on 07/02/2016 by Tariq Elliott Jp, MD at [facility] Left: Shoulder [employer] 03/16/2021 [id number] / [id number] / High Offset Reversed Tray + 0 Shoulder 03 - [id number] Implanted:Qty: 1 on 07/22/2017 by Tariq Elliott Jp, MD at [facility] Right: Shoulder [employer] 05/30/2022 [id number] / [id number] / 4b Ascend Flex Standard Ptc Humeral Stem Shoulder 14 - [id number] Implanted:Qty: 1 on 07/22/2017 by Tariq Elliott Jp, MD at [facility] Right: Shoulder [employer] 06/06/2022 [id number] / [id number] / Pin Guide [id number] Aequalis Perform+ - [id number] Implanted:Qty: 1 on 07/22/2017 by Tariq Elliott Jp, MD at [facility] Shoulder [employer] 05/13/2022 [id number] / / [id number] Description:no implanted 36 Diameter Revision Reversed Insert+ 6/12.5 B Shoulder 04 - [id number] Implanted:Qty: 1 on 07/22/2017 by Tariq Elliott Jp, MD at [facility] Right: Shoulder [employer] 08/23/2021 [id number] / [id number] / Insurance [place] BLUE REPLACEMENT MEDICARE PART A & B [facility] MEDICARE PPO BLUE REPLACEMENT MEDICARE PART A & B [facility] MEDICARE PPO BLUE [place] [address] [place] [address] MEDICARE PPO BLUE REPLACEMENT [facility] MEDICARE PPO BLUE REPLACEMENT MEDICARE PART A & [place] [id number] [facility] MEDICARE PPO BLUE [place] [place] [address] MEDICARE PPO BLUE REPLACEMENT MEDICARE PART A & B [facility] MEDICARE PPO BLUE REPLACEMENT MEDICARE PART A & B [place] MEDICARE P[place] BLUE REPLACEMENT MEDICARE PART A & B Advance Directives For more information, please contact: [phone] (9AM - 5PM [facility]grid/[facility], Friday-Friday) * Full Code (Presumed) (Latest Code Status on File) Date Activated Date Inactivated Comments 07/22/2017 6:25 PM 07/23/2017 3:21 PM * Full Code (Presumed) Date Activated Date Inactivated Comments 07/02/2016 6:56 PM 07/04/2016 3:02 PM Care Teams Cloth Drier Relationship Specialty Start Date End Date John Brady MD [address] [place] [address] [facility] [place] [address] PCP - General Internal Medicine 12/06/15 Additional Source Comments The information contained in this document represents components of the legal health record. It is not the complete legal health record.[facility]
--- OUTSIDE RECORDS SUMMARY | 2025-01-12 08:25 | XMS_ITS | Clinical Summary ---
Author Organization [facility] Address [address] [id number] Care Team Providers Care Print Room Worker Name Role Phone Unavailable Primary Care Provider Unavailabl e Social History Tobacco Use Types Packs/Day Years Used Date Smoking Tobacco: Never Assessed Intimate Partner Violence Answer Date R ecorded Fear of Current or Ex-Partner Not on file Emotionally Abused Not on file 10/14/2022 Physically Abused Not on file 10/14/2022 Sexually Abused Not on file 10/14/2022 Feel Safe at Home Not on file 10/14/2022 Sex and Gender Information Value Date Recorded Sex Assigned at Not on file Legal Sex Male 12:57 PM EDT Gender Identity Not on file Sexual Orientation Not on file Plan of Treatment Health Maintenance Due Date Last Done Comments Hepatitis C Screening 1955 DTaP/Tdap/Td (1 - Tdap) 1974 Colon Cancer Screening 2001 Pneumococcal 50+ years (1 of 1 - PCV) 2006 Zoster (Shingrix) (1 of 2) 2006 COVID-19 Vaccine ( - 2024-2 6 season) 2024 Influenza (#1) 2024 RSV (1 - 1-dose 75+ series) 07/29/2031 Abdominal Aorta Imaging Discontinued HPV Vaccine (No Doses Required) Completed Hep A Aged Out No longer eligi ble based on patient's age to complete this topic Hep B Aged Out No longer eligi ble based on patient's age to complete this topic Hib Aged Out No longer eligi ble based on patient's age to complete this topic Meningococcal ACWY Aged Out No longer eligible based on patient's age to complete this topic Zoster (Zostavax) Discontinued
== END 2025-01-12 08:11 | disposition home or self-care (01) ==
LOC: HO.HOSX 08:10
DX: M19.031 Primary osteoarthritis, right wrist (principal); M18.11 Unilateral primary osteoarthritis of first carpometacarpal joint, right hand; R20.2 Paresthesia of skin; R20.0 Anesthesia of skin
CPT/HCPCS: 20600; 99202; J1100; J2003

== ENCOUNTER 2025-01-12 08:32 | Outpatient (AMB) | payer MEDICARE, SELFPAY ==
--- NOTE | 2025-01-12 08:35 | A.OFFVIS_ITS ---
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 Patient complains of pain on the ulnar aspect of the RIGHT wrist as well as his right thumb. He also complains of LEFT thumb, index, and middle finger numbness and tingling. He shares episodes of a shocking sensation from the middle of his arm to his fingertips. Patient status post Bilateral Carpal Tunnel Release ~ 1989. He denies any recent injuries to his hands. He was previously treated by [facility], last seen August,. Patient had a second opinion at [facility] but he did not receive any treatment. Patient is here for a third opinion. Patient is interested in a cortisone injection today. IMPRESSION 11/24/24: Multifocal advanced arthritis, as detailed above. Interval worsening as compared to the prior study. 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 Patient complains of pain on the ulnar and central aspect of the RIGHT wrist as well as his right thumb. Patient states that he has had many cortisone injections both into the right wrist and the right thumb, med that these were minimally effective at last injection. He also complains of LEFT thumb, index, and middle finger numbness and tingling. He shares episodes of a shocking sensation from the middle of his arm to his fingertips. Patient status post Bilateral Carpal Tunnel Release ~ 1989. He denies any recent injuries to his hands. He was previously treated by [facility], last seen August,. Patient states that at that point, he was due to have an LRTI procedure performed on the right thumb, but he did have a small cut and was unable to move forward with surgery at that time. Patient also states that the only option made available to him for his wrist other than injections was a total wrist fusion, which he states he will not performed due to wanting to continue with skiing and playing hockey, both of which would be extremely difficult with a fused wrist. Patient had a second opinion at [facility] but he did not receive any treatment. Patient is here for a third opinion. Patient is interested in a cortisone injection today. IMPRESSION 11/24/24: Multifocal advanced arthritis, as detailed above. Interval worsening as compared to the prior study. [facility] Medical History (Updated 01/12/25 @ 10:35 by MARTI Thomas) Vitamin D deficiency Low back pain Neck pain Unintentional weight loss Neuropathy Hyperlipidemia Left inguinal hernia (12/31/22) PVC (premature ventricular contraction) Tremor Eczema Osteoarthritis Cervical radiculopathy Chronic back pain Elevated cholesterol Right groin pain Left inguinal hernia Arthritis Surgical History H/O inguinal hernia repair (12/31/22) Hx of total knee arthroplasty History of surgery Hx of carpal tunnel repair Hx of shoulder surgery Hx of arthroscopic knee surgery H/O colonoscopy (~06/15/15) History of hernia repair Family History (Updated 12/15/24 @ 08:15 by Danielle Mendoza MA) Mother No problems noted. Father No problems noted. Social History (Updated 01/12/25 @ 08:37 by ROZ Huff) Housing: House Alcohol intake: unknown Patient Tobacco Use Status: Never used Tobacco e-Cigarette/Vaping Use: Never Used service: No Current occupational status: retired Current occupation: left Cognitive needs: No Hearing needs: No Vision needs: No Review of Systems Const All systems reviewed & are unremarkable except as noted in HPI and below Physical Exam Vital Signs: BMI result Body Mass Index 23.4 Extrem Other: Patient is alert, oriented, and in no acute distress. Neuro: Normal sensation of the tips of all digits of bilateral hands in the office today Vascular: Cap refill brisk Pain: Mild tenderness to palpation about the dorsal aspect of the central right wrist Mildly positive CMC grind on the right Pain with all range of motion of the right wrist ROM: Patient is able to make a closed fist and extend all digits of bilateral hands fully and without difficulty Skin: No lacerations or abrasions. General: No ecchymosis, erythema, or evidence of infection. Psych: Appears grossly normal Affect normal Attitude cooperative Office Procedures Joint Inj/Aspir; Non-Pain Clin Joint Injection/Drain Prep: site was prepped using aseptic technique and injection warnings given Procedure: The patient tolerated the procedure well and there was some relief with the local anesthesia Elbows, Wrist, Hands, Hand injection Medium joint : Right Hand Coding Procedure code (CPT) selection complete Results Reviewed Results Reviewed: X-rays obtained on 11/24/2024 and independently reviewed by me, John Bailey, demonstrate moderate basal joint arthritis of the right thumb, as well as severe degenerative changes throughout the intercarpal joints of the right wrist. Assessment & Plan Assessment & Plan (1) Numbness and tingling of left hand: Code(s): R20.0 - Anesthesia of skin; R20.2 - Paresthesia of skin Category: Medical (2) Arthritis of carpometacarpal (CMC) joint of right thumb: Code(s): M18.11 - Unilateral primary osteoarthritis of first carpometacarpal joint, right hand Category: Medical (3) Arthritis of wrist, right, degenerative: Code(s): M19.031 - Primary osteoarthritis, right wrist Category: Medical Plan 1. Right basal joint arthritis The risks and benefits of a steroid injection including but not limited to risk of damage to blood vessels, nerve, tendon, infection, skin bleaching, persistent or worsening pain, and failure to improve symptoms were discussed with the patient and they wish to proceed with the steroid injection. Once consent was obtained the skin over the dorsum of the right basal joint was sterilely prepped. The joint was then injected with a combination of 40 mg dexamethasone and 1% plain Lidocaine. The patient appears to have tolerated the procedure well and with no complications. He had good early relief before [facility] today. He knows that they may not have another steroid injection into this joint for least 4 months. 2. Right radial carpal joint arthritis Patient is educated about this condition Patient is educated about the typical treatment course At this time, patient would like to move forward with steroid injection, however he will need to have an appointment with Dr. Barrera for injection under x-ray guidance Patient is booked for next available appointment with Dr. Barrera Patient understands this and is amenable to this plan 3. Numbness and tingling of left hand Status post at least 1 carpal tunnel release, patient can not recall if there was a 2nd carpal tunnel release DOS in approximately the At this time, patient is referred for EMG and nerve conduction study to assess the health of the nerves of the left upper extremity Given the patient's relatively recent history of a neck injury while playing hockey, I do feel that there is a chance that this is cervical radiculopathy and not carpal tunnel syndrome This is noted on EMG ordered Patient will follow-up after EMG and nerve conduction study for results review and discussion of further treatment options if indicated Patient understands this and is amenable to this plan Orders: Orders NE nerve conduction velocity Today R20.0 - Anesthesia of skin, R20.2 - Paresthesia of skin NE electromyogram (EMG) Today R20.0 - Anesthesia of skin, R20.2 - Paresthesia of skin Medications: New diclofenac sodium 1% apply 4grams to affected area four times a day as needed 4 grams topical QID PRN 100 grams 0RF pain 30 days Coding Level of Care Code Complex visit Add On G2211 Diagnoses Numbness and tingling of left hand R20.0; R20.2 Arthritis of carpometacarpal (CMC) joint of right thumb M18.11 Arthritis of wrist, right, degenerative M19.031 CPT Codes Elbows, Wrist, Hands, - Hand injection Medium joint : Right Hand ([id number])
[2025-01-12 08:42] VITALS: BMI 23.4
--- OUTSIDE RECORDS SUMMARY | 2025-01-12 08:57 | XMS_ITS | Data Portability ---
Author Organization [facility], OFFICE Address [address] [facility] [address] [place] [id number] Assessment Encounter Date Assessment Date Assessment LastModified by Organization Details LastModified Time 07/26/2020 07/26/2020 Edwige has some residual symptoms following BTKR. He walks well and his knees have excellent motion, PF Tracking, and stability. His radiographs don't show signs of concern. He has soft tissue crepitus bilaterally especially anteriorly. It doesn't appear that his knees are loose, infected, or unstable. He has mild effusions. I've recommended an LTT. sbm Not available 07/26/2020 15:12:11 09/07/2020 09/07/2020 Edwige and I discussed the issues related to [...] sbm Not available 09/26/2020 14:10:22 10/31/2020 10/31/2020 Edwige still has a feeling of tightness in [...] of care. sbm Not available 10/31/2020 11:34:55 12/06/2024 12/06/2024 Edwige had a perio d of increased pain in the anterolateral aspect of the pfj of his replaced left knee. His symptoms have nearly completely resolved. His radiographs and MR don't show signs of concern. He's been able to resume activities as tolerated. We can determine further treatment based on his clinical progress. This visit was conducted as a real-time telehealth interactive video visit. He was identified and consented to this telehealth visit. I spent a total of 20 minutes during this encounter. Greater than 50% of the time was devoted to counseling and coordinating care. This included reviewing records and pertinent studies, discussing diagnostic evaluation and workup, planning therapeutic interventions, and formulating the future disposition of care. sbm Not available 12/06/2024 17:25:06 Plan of Treatment Reminders Order Date Submit [...] resul t No observ ation record ed. [email or web address] Not Available 06/26 10:34:44 10/31/19 21 imagi ng/di agnos tic resul t No observ ation record ed. [email or web address] Not Available 10/30 15:50:57 Result Notes None recorded. Problems No Known Problems Procedures Surgical History Date Name Laterality Status Provider Name and Address Organization Details Recorded Time 0 total replacement of right knee joint completed Laura Holden MA - [facility] 09/01/2019 08:04:49 0 total replacement of left knee joint completed Shay Antunez MD [address] [facility], [place], [address], [place] - [facility]Assistd and [facility] 10/31/2020 11:18:40 Knee arthroscopy/wendy lam completed Shay Antunez MD [address] [facility], [place], [address], [place] - [facility]Assistd and [facility] 12/09/2018 16:50:45 Imaging Results None recorded. Procedure Notes None recorded. Medical Equipment None Reported. Allergies Allergen ID Allergen Name Allergen Category Reaction Reaction Severity Criticality Documentation Date Start Date Code Code System Note Provider Name and Address Organization Details Recorded Time 9585 Product containin g penicilli n (product) medicatio n Not available Not available Not available 12/09/2018 21397 8001 SNOMED child vargas Laura moseley MA - Comp-Assistd and [facility] 0 12:13:55 Medications Name Sig Start Date Stop Date Status Note LastModified by Organization Details LastModified Time amoxicillin 500 mg capsule TAKE 4 CAPSULES BY MOUTH 1 HOUR BEFORE DENTAL WORK active Not Available Not Available No t Available tramadol 50 mg tablet 06/26 completed Not Available Not Available Not Available triamcinolo ne acetonide 0.1 % topical cream MIX ENTIRE TUBE WITH 1LB OF CERAVE APPLY TO RASH ON ARM TWICE DAILY NEEDED FOR RASH DO NOT USE FOR MORE THAN 2 WEEKS BREAK 1 WEEK AND REPEAT active Not Available Not Available No t Available butalbital- acetaminoph en-caffeine 50 mg-325 mg-40 mg tablet TAKE 1 TABLET BY MOUTH EVERY 8 HOURS NEEDED FOR HEADACHE active Not Available Not Available No t Available amoxicillin 500 mg tablet TAKE 4 TABLETS BY MOUTH 1 HOUR BEFORE APPOINTME NT 12/03 completed Not Available Not Available Not Available simvastatin 40 mg tablet TAKE 1 TABLET BY MOUTH AT BEDTIME active Not Available Not Available No t [...] Available Not Available oxycodone 5 mg tablet TAKE 1 TABLET BY MOUTH EVERY 4 HOURS FOR 1 DAY NEEDED FOR POST OPERATIVE PAIN active Not Available Not Available No t Available celecoxib 400 mg capsule TAKE 1 CAPSULE BY MOUTH DAILY NEEDED active Not Available Not Available No t Available cyclobenzap rine 5 mg tablet TAKE 1 TABLET BY MOUTH THREE TIMES DAILY FOR 10 DAYS NEEDED FOR MUSCLE SPASM active Not Available Not Available No t Available cholecalcif regulo (vitamin D3) 1,250 mcg (50,000 unit) capsule TAKE 1 CAPSULE BY MOUTH EVERY WEEK FOR 12 WEEKS active Not Available Not Available No t Available Vitals None Recorded Social History Question Answer Notes LastModified by Organizat ion Details LastModified Time Tobacco Smoking Status Never Smoker Laura Holden null, [place] - [facility] 12/09/2018 16:18:34 What Was The Date Of Your Most Recent Tobacco Screening? 12/09/2018 [email or web address] Information not available 12/09/2018 How Much Tobacco Do You Smoke? No [email or web address] Information not available 12/09/2018 How Many Years Have You Smoked Tobacco? 0 [email or web address] Information not available 12/09/2018 Sex: Unknown Functional Status Question Answer Note LastModified by Organizat ion Details LastModified Time Do you or have you ever used smokeless tobacco? Never used smokeless tobacco Information not available 12/09/2018 Do you or have you ever used e-cigarettes or vape? Never used electronic cigarettes Information not available 12/09/2018 Mental Status None recorded. Family History Relationship Description Onset Age of this Age Resolved Age Notes LastModified by Organization Details LastModified Time Mother Arthritis sbm Not available 12/09/2018 16:50:22 Brother Arthritis sbm Not available 12/09/2018 16:50:22 Medical History Condition Response High Cholesterol Y Past Encounters Encounter ID Performer Location Encounter Start Date Encounter Closed Date Diagnosis/Indication Diagnosis SNOMED-CT Code Diagnosis ICD10 Code Diagnosis IMO Codes Diagnosis Note [id number] Shay Antunez MD OFFICE [facility] [address] [place] [address] 12/09/2018 12:57:31 12/14/2018 13:56:58 [id number] Shay Antunez MD [facility] [address] [place] [address] 09/01/2019 08:04:01 09/01/2019 20:24:59 [id number] Shay Antunez MD [facility] [address] [place] [address] 02/28/2020 10:39:30 02/29/2020 19:41:36 [id number] Shay Antunez MD [facility] [address] [place] [address] 05/17/2020 09:34:36 05/17/2020 17:24:32 [id number] Shay Antunez MD [facility] [address] [place] [address] 06/26/2020 07:34:41 06/26/2020 20:56:21 [id number] Shay Antunez MD OFFICE [address] [facility] [address] [place] [address] 07/26/2020 10:31:29 07/26/2020 16:44:33 [id number] Shay Antunez MD [facility] [address] [place] [address] 09/07/2020 08:23:37 09/07/2020 17:24:48 [id number] Shay Antunez MD [facility] [address] [place] [address] 09/26/2020 10:09:38 09/26/2020 15:01:14 [id number] [facility] [address] [place] [address] 10/31/2020 07:21:53 10/31/2020 15:00:29 [id number] [facility] [address] [place] [address] 12/06/2024 14:38:36 12/22/2024 16:39:58 Health Concerns Section Related Observation LastModified by Organization Detai ls LastModified Time None Recorded Concern Status LastModified by Organization Details LastModified Time None Recorded Advance Directives Directive None Recorded Payers Insurance Date Sequence Insurance Name Policy Number Policy Alvarenga Covered Member ID Alvarenga Member ID Guarantor Name 07/20/2020 1 [facility] ([facility] [id number] Cedric Hays [id number] Cedric Hays 11/03/2024 1 [facility] Cedric Hays [id number] Cedric Hays 12/22/2024 1 [facility] BLUE (MEDICARE REPLACEMENT PPO) [id number] Cedric Hays [id number] Cedric Hays Notes Date Note Type Note Provider Name and Address Organization Details Recorded Time 07/26/2020 text/html KneeReported by PatientHPIFor location, patient reportsbilateral. For severity, patient reportsmild. For associated symptoms, patient reportsno weakness,no numbness,no tingling,no swelling,no redness,no warmth,no ecchymosis,no catching/locking,no popping/clicking,no buckling,no grinding,no instability,no radiation down leg,no drainage,no fever,no chills,no weight loss, andno change in bowel/bladder habits. For prior imaging, patient reportsx rayandmri. For previous pt, patient reportshelped temporarily. For timing, (intermittently, but mostly with athletic activities.). For aggravating factors, (sporting activities such as skating for example).ROS as noted in the [facility] Shay Antunez MD [address],[facility] [address], [place], [address], [place] - [facility] 07/26/2020 15:12:15 09/07/2020 text/html KneeReported by PatientIFor location, patient reportsbilateral. For severity, patient reportsmild. For associated symptoms, patient reportsno weakness,no numbness,no tingling,no swelling,no redness,no warmth,no ecchymosis,no catching/locking,no popping/clicking,no buckling,no grinding,no instability,no radiation down leg,no drainage,no fever,no chills,no weight loss, andno change in bowel/bladder habits. For prior imaging, patient reportsx rayandmri. For previous pt, patient reportshelped temporarily. For timing, (edwige's symptoms are unchanged.).ROS as noted in the [facility] Shay Antunez MD [address],[facility] [address], [place], [address], [place] - [facility] 09/07/2020 09:56:18 09/26/2020 text/html KneeReported by PatientIFor location, patient reportsbilateral. For severity, patient reportsmild. For associated symptoms, patient reportsno weakness,no numbness,no tingling,no swelling,no redness,no warmth,no ecchymosis,no catching/locking,no popping/clicking,no buckling,no grinding,no instability,no radiation down leg,no drainage,no fever,no chills,no weight loss, andno change in bowel/bladder habits. For prior imaging, patient reportsx ray,mri, andbone scan. For previous pt, patient reportshelped temporarily. For timing, (edwige's symptoms are unchanged. he doesn't have any pain walking but he has medial tenderness bilaterally and symptoms particularly after activity.).ROS as noted in the [facility] Shay Antunez MD [address],[facility] [address], [place], [address], [place] - Comp-Assistd and [facility] 09/26/2020 14:10:26 10/31/2020 text/html KneeReported by PatientHPIFor location, patient reportsbilateral. For severity, patient reportsmild. For associated symptoms, patient reportsno weakness,no numbness,no tingling,no swelling,no redness,no warmth,no ecchymosis,no catching/locking,no popping/clicking,no buckling,no grinding,no instability,no radiation down leg,no drainage,no fever,no chills,no weight loss, andno change in bowel/bladder habits. For prior imaging, patient reportsx ray,mri, andbone scan. For timing, (edwige's symptoms have improved. he was able to skate twice last week with no symptoms.).ROS as noted in the [facility] Shay Antunez MD [address],[facility] [address], [place], [address], [place] - Comp-Assistd and [facility] 10/31/2020 11:34:59 12/06/2024 text/html KneeReported by PatientHPIFor location, patient reportsleftandanterio r(anterolateral aspect of the pfj). For severity, patient reportsslight. For alleviating factors, patient reportsrestandstretch ing. For aggravating factors, patient reportsexercise. For associated symptoms, patient reportsno weakness,no numbness,no tingling,no swelling,no redness,no warmth,no ecchymosis,no catching/locking,no popping/clicking,no buckling,no grinding,no instability,no radiation down leg,no drainage,no fever,no chills,no weight loss, andno change in bowel/bladder habits. For prior imaging, patient reportsx rayandi. Shay Antunez MD [address] [place] [address],[facility] [address], [place], [address], [place] - [facility]d and [facility] 12/06/2024 17:25:10
--- OUTSIDE RECORDS SUMMARY | 2025-01-12 08:57 | XMS_ITS | Continuity of Care Document ---
Author Organization [facility], [facility] Address [address] [place] [address] Assessment Encounter Date Assessment Date Assessment LastModified by Organization Details LastModified Time 12/06/2024 12/06/2024 Jesus had a period of increased pain in the anterolateral aspect [...] instructions recorded. Reason for Referral None Reported. Problems No Known Problems Procedures Surgical History Date Name Laterality Status Provider Name and Address Organization Details Recorded Time 0 total replacement of right knee joint completed Laura Holden [place] - [facility]d and Rcnstr[facility] Surg[facility] 09/01/2019 08:04:49 0 total replacement of left knee joint completed Shay Antunez MD [address] [facility],[address], [place], [address], [place] - Comp-Assistd and Rcnstrctive Surgry 10/31/2020 11:18:40 Knee arthroscopy/wendy lam completed Shay Antunez MD [address] [facility],[address], [place], [address], [place] - [facility]Assistd and [facility]cnstrctive Surgry 12/09/2018 16:50:45 Imaging Results None recorded. Procedure Notes None recorded. Medical Equipment None Reported. Allergies Allergen ID Allergen Name Allergen Category Reaction Reaction Severity Criticality Documentation Date Start Date Code Code System Note Provider Name and Address Organization Details Recorded Time 9572 Product containin g penicilli n (product) medicatio n Not available Not available Not available 12/09/2018 40925 8001 SNOMED child vargas Laura Holden null, [place] - [facility]d [facility] Rcnstrctive Surgry 0 [...] Time Tobacco Smoking Status Never Smoker Laura moseley MA - Comp-Assistd and Rcnstrctive Surgry 12/09/2018 16:18:34 What Was The Date Of Your Most Recent Tobacco Screening? 12/09/2018 [email or web address] Information not available 12/09/2018 How Much Tobacco Do You Smoke? No [email or web address] Information not available 12/09/2018 How Many Years Have You Smoked Tobacco? 0 [email or web address] Information not available 12/09/2018 Sex: Unknown Functional Status Question Answer Note LastModified by Organizat ion Details LastModified Time Do you or have you ever used smokeless tobacco? Never used smokeless tobacco [email or web address] Information not available 12/09/2018 Do you or have you ever used e-cigarettes or vape? Never used electronic cigarettes [email or web address] Information not available 12/09/2018 Mental Status None [...] ICD10 Code Diagnosis IMO Codes Diagnosis Note [id number] [facility] [address] [place] [address] 12/06/2024 14:38:36 12/22/2024 16:39:58 Health Concerns Section Related Observation LastModified by Organization Detai ls LastModified Time None Recorded Concern Status LastModified by Organization Details LastModified Time None Recorded Payers Encounter Date Sequence Insurance Name Policy Number Policy Alvarenga Covered Member ID Alvarenga Member ID Guarantor Name 12/06/2024 1 [facility]: MEDICARE PPO BLUE (MEDICARE REPLACEMENT PPO) [id number] Cedric [facility] [id number] [facility] Notes Date Note Type Note Provider Name and Address Organization Details Recorded Time 12/06/2024 text/html KneeReported by PatientHPIFor location, patient [...] habits. For prior imaging, patient reportsx [email or web address]. Shay Antunez MD [address], [place], [address], [place] - [facility]Assistd and Rcnstrctive Surgry 12/06/2024 17:25:10
== END 2025-01-12 09:29 | disposition home or self-care (01) ==
LOC: HO.HOS 08:32
PROVIDERS: PCP Student in an Organized Health Care Education/Training Program
DX: R20.0 Anesthesia of skin (principal); R20.2 Paresthesia of skin; M18.11 Unilateral primary osteoarthritis of first carpometacarpal joint, right hand; M19.031 Primary osteoarthritis, right wrist
CPT/HCPCS: 20600; 99203

== ENCOUNTER 2025-02-15 08:37 | Outpatient (REF) | payer MEDICARE, SELFPAY ==
--- NOTE | ~2025-02-15 | FL_ITS ---
EXAMINATION: FL GUIDANCE ONLY FOR NEEDLE PLACEMENT HISTORY: M19.031 - Primary osteoarthritis, right wrist COMPARISON: Right wrist x-ray November 2024 Technique/FINDINGS: Intraoperative fluoroscopy guidance guidance provided for orthopedic procedure. Single intraoperative fluoroscopic image submitted. This demonstrates instrument/needle projecting over the distal ulna and triangular fibrocartilage complex region. Fluoroscopy time 7.6 seconds. 4861 uGy/sq cm FL/FL guided needle placement IMPRESSION: Fluoroscopy guidance for orthopedic procedure. Electronically signed by: Ginger Walton MD 02/15/2025 02:30 PM [place] QUINONEZ
== END 2025-02-15 08:38 | disposition home or self-care (01) ==
LOC: HO.HOSX 08:37
PROVIDERS: PCP Student in an Organized Health Care Education/Training Program; Visit Provider Orthopaedic Surgery
DX: M19.031 Primary osteoarthritis, right wrist (principal); M18.11 Unilateral primary osteoarthritis of first carpometacarpal joint, right hand; R20.0 Anesthesia of skin; R20.2 Paresthesia of skin
CPT/HCPCS: 20605; 77002; 99212; J0665; J1100

== ENCOUNTER 2025-02-15 08:37 | Outpatient (AMB) | payer MEDICARE, SELFPAY ==
--- OUTSIDE RECORDS SUMMARY | 2015-09-27 23:00 | XMS_ITS | Encounter Summary ---
Author Organization [facility] Address [address] [place] [phone] Phone Care Team Providers Care Clerk General Name Role Phone Unavailable Primary Care Provider Unavailabl e Reason for Visit * MRI/CAT Scan - Closed Specialty Diagnoses / Procedures Referred By Errol t Referred To Contact Procedures CT Upper Extremity Outside (No Interpretation) Tariq Elliott Jp, MD [address] [facility] [address] [place] [address] Phone: tel: fax: mailto:[email or web address] Referral ID Status Reason Start Date Expiration Date Visits Re quested Visits Authorized [id number] Closed 02/09/2016 02/08/2017 1 1 Encounter Details Date Type Department Care Team (Late st Contact Info) Description 09/28/2015 Hospital Encounter [facility] [address] [place] [address] Tariq Elliott Jp, MD [address] [facility] [place] [address] [email or web address] Social History Tobacco Use Types Packs/Day [...] as of this encounter Plan of Treatment Upcoming Encounters Date Type Department Care Team (Late st Contact Info) Description 02/24/2025 9:15 AM EST Office Visit [facility] [address] [place] [address], [place] [address] Carrillo Phillips MD [address] [place] [address] [email or web address] documented as of this encounter Procedures Procedure Name Priority Date/Time Associated Diagnosis Comments CT UPPER EXTREMITY OUTSIDE (NO INTERPRETATION) Routine 09/28/2015 12:00 AM EDT documented in this encounter Results * CT Upper Extremity Outside (No Interpretation) (09/28/2015 12:00 AM EDT) Narrative [facility] INTERFACES - 02/09/2016 8:03 AM EST This study is for PACS storage only and not for interpretation. us Tariq Elliott MD IMG OUTSIDE IMAGING W/OUT INTER PRETATION Final Result [facility] INTER[facility]ACES documented in this encounter Visit Diagnoses Not on filedocumented in this encounter Additional Source Comments The information contained in this document represents components of the legal health record. It is not the complete legal health record.[facility]
--- NOTE | 2025-02-15 08:49 | A.OFFVIS_ITS ---
Intake Visit Reasons: INJ-R wrist inj under XR Intake Note: Antoine 69 yr old left hand dominant male presents today for his follow up visit for his right hand arthritics pain. At patient last visit with Juliette Lopez, patient was advised to follow up with Dr. Barrera to discuss Right radial carpal joint arthritis steroid injection. Patient is s/p basal joint injection from 01/12/25 with Juliette Lopez. Allergies No Known Allergies Allergy (Verified 02/15/25 08:51) HPI HPI INJ-R wrist inj under XR: Details: Cedric is a 69 year old right hand dominant man who presents for his right wrist OA and pain. He complains of pain in his right wrist, worse with heavy lifting & wrist ROM. Most of his pain is in the ulnar & central aspects of his wrist. He would like to discuss an injection today. He says he has a Hx of injections to his wrist & thumb in the past, without relief. He says a wrist fusion was discussed by Dr. Curiel, but he is unwilling to stop playing Hockey at his age and did not want the procedure. He has right basal joint OA, and received an injection by MARTI Lopez on 01/12/25, with some relief. He says he was in discussion for an LRTI procedure by Dr. Curiel. This did not end up happening. He has left hand numbness in the median nerve distribution. Symptoms intermittent, but daily. He has a Hx of a bilateral carpal tunnel release in ~. He has a NCS scheduled for 02/18/25. He stays active playing Hockey 2 times per week. [facility] Medical History (Updated 01/12/25 @ 10:35 by MARTI Thomas) Vitamin D deficiency Low back pain Neck pain Unintentional weight loss Neuropathy Hyperlipidemia Left inguinal hernia (12/31/22) PVC (premature ventricular contraction) Tremor Eczema Osteoarthritis Cervical radiculopathy Chronic back pain Elevated cholesterol Right groin pain Left inguinal hernia Arthritis Surgical History H/O inguinal hernia repair (12/31/22) Hx of total knee arthroplasty History of surgery Hx of carpal tunnel repair Hx of shoulder surgery Hx of arthroscopic knee surgery H/O colonoscopy (~06/15/15) History of hernia repair Family History (Updated 12/15/24 @ 08:15 by Danielle Mendoza MA) Mother No problems noted. Father No problems noted. Social History Housing: House Alcohol intake: unknown Patient Tobacco Use Status: Never used Tobacco e-Cigarette/Vaping Use: Never Used service: No Current occupational status: retired Current occupation: left Cognitive needs: No Hearing needs: No Vision needs: No Review of Systems Const All systems reviewed & are unremarkable except as noted in HPI and below Physical Exam Const General: cooperative, healthy appearing and no acute distress Orientation/consciousness: patient oriented x3 HEENT Head: Yes normocephalic and Yes atraumatic Eyes EOM: EOMs intact bilaterally Resp Effort & Inspection: normal respiratory effort and able to speak in complete sentences Cardio Jugular venous distension: no JVD Skin General skin exam: turgor normal Rashes: no rashes Neuro General: patient oriented x3 Extrem Other: Evaluation of Right Upper Extremity: The patient is alert, oriented, and in no acute distress Neuro: Median, Ulnar, Radial nerves motor and sensory intact and sensation is normal to the tips of all digits Vascular: Cap refill brisk ROM: He can make a fist and extend all his digits No locking or catching Skin: No lacerations or abrasions. General: No Ecchymosis. No Erythema or evidence of infection. Most tender over the ulnocarpal joint. Not particularly tender over the radiocarpal joint No tenderness over the DRUJ in the DRUJ is stable Radiographs: 3 views of the right wrist from 11/24/24 were reviewed by me today in clinic. They show basal joint arthritis with joint space narrowing, subchondral sclerosis, and osteophyte formation. There is also severe STT joint arthritis, and ulnar translocation of the carpus with loss of joint space at the radiocarpal joint. Psych Appearance: grossly normal Affect: normal affect Attitude: cooperative Office Procedures AMB Fracture Care Details: No fracture, [place] [address] for utilization of the mini C-arm for needle placement Fracture Billing Code: Fracture Billing Code Assessment & Plan Assessment & Plan (1) Arthritis of wrist, right, degenerative: Code(s): M19.031 - Primary osteoarthritis, right wrist Category: Medical (2) Arthritis of carpometacarpal (CMC) joint of right thumb: Code(s): M18.11 - Unilateral primary osteoarthritis of first carpometacarpal joint, right hand Category: Medical (3) Numbness and tingling of left hand: Code(s): R20.0 - Anesthesia of skin; R20.2 - Paresthesia of skin Category: Medical Plan Assessment & Plan: 1. Right wrist OA, with ulnar translocation of the carpus I educated him about this condition I discussed operative and non-operative treatment options He has been offered a wrist arthrodesis procedure an outside facility, but is insistent that he would not be able to play hockey if he has a wrist arthrodesis, and he is not ready to give up playing hockey. The patient would like to proceed with an injection Injection #1: The risks and benefits of a steroid injection including but not limited to risk of damage to blood vessels, nerve, tendon, infection, skin bleaching, persistent or worsening pain, and failure to improve symptoms were discussed with the patient and they wish to proceed with the steroid injection. Once consent was obtained the skin over the dorsum of the Right wrist was sterilely prepped. The ulnocarpal joint, in the 4-5 portal, was then injected with a combination of 1 mL of dexamethasone (4mg/ml) and 0.5% plain Marcaine, using the mini C-arm for needle guidance. The patient appears to have tolerated the procedure well and with no complications. He had good early relief before leaving clinic today. He knows that they may not have another steroid injection into this joint for least 4 months. 2. Right basal joint arthritis, S/P injection Date of injection: 01/12/25 by MARTI Lopez Patient reports limited relief from his injection He is very active and plays Hockey frequently I discussed activity modification, they should limit or avoid any heavy or repetitive pinching or gripping activities He should work on ROM exercises, and avoid any gripping or strengthening activities I discussed the use of assistive devices for daily activity 3. Left hand numbness In the median nerve distribution Symptoms intermittent, but daily Hx of carpal tunnel release in ~ NCS scheduled for 02/18/25 Follow up when completed for review Please note that greater than 30 minutes was spent with this patient going over the history, evaluating the patient and radiographs, formulating possible treatment options, discussing them with the patient, and documenting the visit. Scribed for Chary Barrera MD by Arsen Barfield, medical staff services coordinator, on 02/15/25 at 8:50 AM, EST. Orders: Orders FL guided needle placement Today M19.031 - Primary osteoarthritis, right wrist Coding Level of Care Code Est Pt Level 4 (39577) Diagnoses Arthritis of wrist, right, degenerative M19.031 Arthritis of carpometacarpal (CMC) joint of right thumb M18.11 Numbness and tingling of left hand R20.0; R20.2 CPT Codes Fracture Care - Fracture Billing Code: Fracture Billing Code ([id number])
--- OUTSIDE RECORDS SUMMARY | 2025-02-15 10:23 | XMS_ITS | Encounter Summary ---
Author Organization [facility] Address [address] [place] [address] Phone Care Team Providers Care Entry Level Accounting Clerk Name Role Phone John Brady MD Primary Care Provider Encounter Details Date Type Department Care Team (Late st Contact Info) Description 02/09/2016 Procedure Pass [facility] General Imaging [address] [place] [address] Social History Tobacco Use Types Packs/Day Years [...] Description 02/24/2025 9:15 AM EST Office Visit [facility] Hand and Upper Extremity Service [address] [facility], [address] [place] [address] Carrillo Phillips MD [address] [address] [email or web address] documented as of this encounter Visit Diagnoses Not on filedocumented in this encounter Care Teams Entry Level Accounting Clerk Relationship Specialty Start Date End Date John Brady MD [address] [place] [address] [place] [address] PCP - General Internal Medicine 12/06/15 documented as of this encounter Additional Source Comments The information contained in this document represents components of the legal health record. It is not the complete legal health record.[facility]
--- OUTSIDE RECORDS SUMMARY | 2025-02-15 10:23 | XMS_ITS | Encounter Summary ---
Author Organization [facility] Address [address] [place] [address] Phone Care Team Providers Care Ice Guard Skating Rink Name Role Phone John Brady MD Primary Care Provider [phone] Encounter Details Date Type Department Care Team (Late st Contact Info) Description 02/09/2016 Procedure Pass [facility] General Imaging [address] [place] [address] Social History Tobacco Use Types Packs/Day Years [...] Description 02/24/2025 9:15 AM EST Office Visit [facility] Hand and Upper Extremity Service [address] [facility] [place] [address] Carrillo Phillips MD [address] [address] [email or web address] documented as of this encounter Visit Diagnoses Not on filedocumented in this encounter Care Teams Ice Guard Skating Rink Relationship Specialty Start Date End Date John Brady MD [address] [place] [address] [place] [address] PCP - General Internal Medicine 12/06/15 documented as of this encounter Additional Source Comments The information contained in this document represents components of the legal health record. It is not the complete legal health record.[facility]
--- OUTSIDE RECORDS SUMMARY | 2025-02-15 10:23 | XMS_ITS | Encounter Summary ---
Author Organization [facility] Address [address] [place] [address] Phone Care Team Providers Care Actuarial Internship Name Role Phone John Brady MD Primary Care Provider [phone] Encounter Details Date Type Department Care Team (Late st Contact Info) Description 05/31/2022 Procedure [facility] for Outpatient Care, Radio Flouroscopy [address] [place] [address] Social History Tobacco Use Types Packs/Day Years [...] documented in this encounter Plan of Treatment Upcoming Encounters Date Type Department Care Team (Late st Contact Info) Description 02/24/2025 9:15 AM EST Office Visit [facility] Orthopaedic Surgery Hand and Upper Extremity Service [address] [place] [address], [address] [address] Carrillo Phillips MD [address] [place] [address] [email or web address] documented as of this encounter Visit Diagnoses Not on filedocumented in this encounter Care Teams Actuarial Internship Relationship Specialty Start Date End Date John Brady MD [address] [place] [address] [address] [facility] [address] PCP - General Internal Medicine 12/06/15 documented as of this encounter Additional Source Comments The information contained in this document represents components of the legal health record. It is not the complete legal health record.[facility]
--- OUTSIDE RECORDS SUMMARY | 2025-02-15 10:23 | XMS_ITS | Encounter Summary ---
Author Organization [facility] Address [address] [place] [address] Phone Care Team Providers Care Fitness Plan Coordinator Name Role Phone John Brady MD Primary Care Provider [phone] Encounter Details Date Type Department Care Team (Late st Contact Info) Description 02/09/2016 Procedure Pass [facility] General Imaging [address] [place] [address] Social History Tobacco Use Types Packs/Day Years [...] Description 02/24/2025 9:15 AM EST Office Visit [facility] Orthopaedic Surgery Hand and Upper Extremity Service [address] [facility], [address] [place], [place] [address] Carrillo Phillips MD [address] [address] [email or web address] documented as of this encounter Visit Diagnoses Not on filedocumented in this encounter Care Teams Fitness Plan Coordinator Relationship Specialty Start Date End Date John Brady MD [address] [place] [address] Dr [place], [place] [address] PCP - General Internal Medicine 12/06/15 documented as of this encounter Additional Source Comments The information contained in this document represents components of the legal health record. It is not the complete legal health record.[facility]
--- OUTSIDE RECORDS SUMMARY | 2025-02-15 10:23 | XMS_ITS | Encounter Summary ---
Author Organization [facility] Address [address] [facility] [address] [place] [address] Phone Care Team Providers Care Studio Model Name Role Phone John Brady MD Primary Care Provider [phone] Encounter Details Date Type Department Care Team (Late st Contact Info) Description 05/31/2022 Procedure Pass [facility] [place] [address] [facility], 6th [place] [address] Social History Tobacco Use Types Packs/Day Years [...] Description 02/24/2025 9:15 AM EST Office Visit [facility] Orthopaedic Surgery Hand and Upper Extremity Service [address] [place] [address], [address] [address] Carrillo Phillips MD [address] [place] [address] [email or web address] documented as of this encounter Visit Diagnoses Not on filedocumented in this encounter Care Teams Studio Model Relationship Specialty Start Date End Date John Brady MD [address] [place] [address] [place] [address] PCP - General Internal Medicine 12/06/15 documented as of this encounter Additional Source Comments The information contained in this document represents components of the legal health record. It is not the complete legal health record.[facility]
--- OUTSIDE RECORDS SUMMARY | 2025-02-15 10:23 | XMS_ITS | Encounter Summary ---
Author Organization [facility] Address [address] [place] [address] Phone Care Team Providers Care Powderman Name Role Phone John Brady MD Primary Care Provider Encounter Details Date Type Department Care Team ([facility] st Contact Info) Description 06/27/2022 Transcribe Orders [facility] for Outpatient Care, Radio Flouroscopy [address] [place] [address] [address] [place] [id number] [email or web address] Social History Tobacco Use Types Packs/Day Years [...] Description 02/24/2025 9:15 AM EST Office Visit [facility] Orthopaedic Surgery Hand and Upper Extremity Service [address] [place] [address] [place] [address] Carrillo Phillips MD [address] [place] [address] [email or web address] documented as of this encounter Visit Diagnoses Not on filedocumented in this encounter Care Teams Powderman Relationship Specialty Start Date End Date John Brady MD [address] [place] [address] [place] [address] PCP - General Internal Medicine 12/06/15 documented as of this encounter Additional Source Comments The information contained in this document represents components of the legal health record. It is not the complete legal health record.[facility]
--- OUTSIDE RECORDS SUMMARY | 2025-02-15 10:23 | XMS_ITS | Encounter Summary ---
Author Organization [facility] Address [address] [place] [address] Phone Care Team Providers Care Blocker And Sewer Name Role Phone John Brady MD Primary Care Provider Encounter Details Date Type Department Care Team (Latest Contact Info) Description 07/31/2018 Ancillary Orders [facility] Orthopa[facility]ics Clinic [address] [place] [address], 1[address] Floor, [address] [place] [address] Tariq Elliott Jp, MD [address] [place], [place] [address] [address] [email or web address] Pain in joint, shoulder region Social History [...] Description 02/24/2025 9:15 AM EST Office Visit [facility] Hand and Upper Extremity Service [address] [place] [address], [place] [address] Carrillo Phillips MD [address] [place] [address] [email or web address] documented as of this encounter Results * [...] region documented in this encounter Care Teams Blocker And Sewer Relationship Specialty Start Date End Date John Brady MD [address] [place] [address] [place] [address] PCP - General Internal Medicine 12/06/15 documented as of this encounter Additional Source Comments The information contained in this document represents components of the legal health record. It is not the complete legal health record.[facility]
--- OUTSIDE RECORDS SUMMARY | 2025-02-15 10:23 | XMS_ITS | Encounter Summary ---
Author Organization [facility] Address [address] [place] [address] Phone Care Team Providers Care Education Program Coordinator Name Role Phone John Brady MD Primary Care Provider Encounter Details Date Type Department Care Team (Latest Contact Info) Description 01/30/2018 Ancillary Orders [facility] Orthopaedics Clinic [address] [place] [address], 1st Floor, [address] [place] [address] Tariq Elliott Jp, MD [address] [place] [address] [address] [email or web address] Pain in joint, shoulder region Social History [...] Description 02/24/2025 9:15 AM EST Office Visit [facility] Orthopaedic Surgery Hand and Upper Extremity Service [address] [place] [address], [place] [address] Carrillo Phillips MD [address] [place] [address] [email or web address] documented as of this encounter Results * [...] region documented in this encounter Care Teams Education Program Coordinator Relationship Specialty Start Date End Date John Brady MD [address] [place] [address] [place] [address] PCP - General Internal Medicine 12/06/15 documented as of this encounter Additional Source Comments The information contained in this document represents components of the legal health record. It is not the complete legal health record.[facility]
--- OUTSIDE RECORDS SUMMARY | 2025-02-15 10:23 | XMS_ITS | Encounter Summary ---
Author Organization [facility] Address [address] [place] [address] Phone Care Team Providers Care Grinder Set Up Operator Gear Tool Name Role Phone John Brady MD Primary Care Provider Encounter Details Date Type Department Care Team (Late st Contact Info) Description 02/09/[address] - [place] [address] [facility], [address] [place] [address] Social History Tobacco Use Types Packs/Day Years [...] Description 02/24/2025 9:15 AM EST Office Visit [facility] Orthopaedic Surgery Hand and Upper Extremity Service [address] [facility], [address] [place] [address] Carrillo Phillips MD [address] [place] [address] [email or web address] documented as of this encounter Visit Diagnoses Not on filedocumented in this encounter Care Teams Grinder Set Up Operator Gear Tool Relationship Specialty Start Date End Date John Brady MD [address] [place] [address] Dr [place], [place] [address] PCP - General Internal Medicine 12/06/15 documented as of this encounter Additional Source Comments The information contained in this document represents components of the legal health record. It is not the complete legal health record.[facility]
--- OUTSIDE RECORDS SUMMARY | 2025-02-15 10:23 | XMS_ITS | Encounter Summary ---
Author Organization [facility] Address [address] [place] [address] Phone Care Team Providers Care Certification Officer Name Role Phone John Brady MD Primary Care Provider [phone] Encounter Details Date Type Department Care Team (Late st Contact Info) Description 07/02/2016 Procedure Pass [facility] PERIOPERATIVE DEPT [address] [place] [phone] Social History Tobacco Use Types Packs/Day Years [...] Description 02/24/2025 9:15 AM EST Office Visit [facility] Orthopaedic Surgery Hand and Upper Extremity Service 52 [facility], [facility] [address] [place] [address] Carrillo Phillips MD [address] [place] [address] [email or web address] documented as of this encounter Visit Diagnoses Not on filedocumented in this encounter Care Teams Certification Officer Relationship Specialty Start Date End Date John Brady MD [address] [place] [address] [place] [address] PCP - General Internal Medicine 12/06/15 documented as of this encounter Additional Source Comments The information contained in this document represents components of the legal health record. It is not the complete legal health record.[facility]
--- OUTSIDE RECORDS SUMMARY | 2025-02-15 10:23 | XMS_ITS | Encounter Summary ---
Author Organization [facility] Address [address] [place] [address] Phone Care Team Providers Care Pharmaceutical Analyst Name Role Phone John Brady MD Primary Care Provider Encounter Details Date Type Department Care Team (Late st Contact Info) Description 02/09/[address] - [facility] [address] [facility], [address] [place] [address] Social History Tobacco Use Types Packs/Day Years [...] Description 02/24/2025 9:15 AM EST Office Visit [facility] Orthopaedic Surgery Hand and Upper Extremity Service 52 [facility], [address] [place] [address] Carrillo Phillips MD [address] [place] [address] [email or web address] documented as of this encounter Visit Diagnoses Not on filedocumented in this encounter Care Teams Pharmaceutical Analyst Relationship Specialty Start Date End Date John Brady MD [address] [place] [address] Dr [place], [place] [address] PCP - General Internal Medicine 12/06/15 documented as of this encounter Additional Source Comments The information contained in this document represents components of the legal health record. It is not the complete legal health record.[facility]
--- OUTSIDE RECORDS SUMMARY | 2025-02-15 10:23 | XMS_ITS | Clinical Summary ---
Author Organization [facility] Address [address] [place] [address] Care Team Providers Care Tobacco Classer Name Role Phone Unavailable Primary Care Provider Unavailabl e Social History Tobacco Use Types Packs/Day Years Used Date Smoking Tobacco: Never Assessed Sex and Gender Information Value Date Recorded Sex Assigned at Not on file Legal Sex Male 11:30 PM EST Gender Identity Not on file Sexual Orientation Not on file Plan of Treatment Health Maintenance Due Date Last Done Comments Blood Pressure 1956 Lipid Panel 1956 PSA 1956 Prostate Cancer Screening 1956 SDM 1956 Depression Screening 1968 Hepatitis C Screening 1974 DTaP,Tdap,and Td Vaccines (1 - Tdap) 07/29/1975 CT Colonography 2001 Colonoscopy 2001 Colorectal Cancer Screening 2001 FIT 2001 FOBT 2001 Multitarget Stool DNA (Cologuard) 2001 Sigmoidoscopy 2001 Pneumococcal Vaccine: 50+ Ye ars (1 of 1 - PCV) 2006 Zoster Vaccine (1 of 2) 2006 COVID-19 Vaccine (1 - 2024-2 6 season) 2024 Influenza Vaccine (#1) 2024 Meningococcal B Vaccines Aged Out No longer eligible based on patient's age to complete this topic Meningococcal Vaccines Aged Out No lo nger eligible based on patient's age to complete this topic
--- OUTSIDE RECORDS SUMMARY | 2025-02-15 10:24 | XMS_ITS | Encounter Summary ---
Author Organization [facility] Address [address] [place] [address] Phone Care Team Providers Care Gas Specialist Name Role Phone John Brady MD Primary Care Provider [phone] Encounter Details Date Type Department Care Team (Late st Contact Info) Description 07/22/2017 Procedure Pass [facility] PERIOPER[facility]IVE DEPT [address] [place] [phone] Social History Tobacco Use Types Packs/Day Years [...] and Upper Extremity Service 52 [facility], [address] [place] [address] Carrillo Phillips MD [address] [place] [address] [email or web address] documented as of this encounter Visit Diagnoses Not on filedocumented in this encounter Care Teams Gas Specialist Relationship Specialty Start Date End Date John Brady MD [address] [place] [address] Dr PETERSON [address] [place] [address] PCP - General Internal Medicine 12/06/15 documented as of this encounter Additional Source Comments The information contained in this document represents components of the legal health record. It is not the complete legal health record.[facility]
--- OUTSIDE RECORDS SUMMARY | 2025-02-15 10:24 | XMS_ITS | Encounter Summary ---
Author Organization [facility] Address [address] [place] [address] Phone Care Team Providers Care Catalyst Unit Operator Name Role Phone John Brady MD Primary Care Provider Encounter Details Date Type Department Care Team (Latest Contact Info) Description 02/09/2016 Ancillary Orders [facility] Orthopaedic Surgery Shoulder Service [address] [facility], 3rd Floor, [address] [place] [address] Tariq Elliott Jp, MD 55 [facility] [place] [address] [email or web address] Pain in joint of right [...] Description 02/24/2025 9:15 AM EST Office Visit [facility] Hand and Upper Extremity Service 52 [facility], [address] [place] [address] Carrillo Phillips MD 55 [facility] [address] [place] [address] [email or web address] documented as of this encounter Results * [...] of the right glenohumeral joint, which demonstrates nspk-bg-minb contact. No fracture or dislocation. Osteocartilaginous loose bodies are present. There are mild degenerative changes of the right AC joint. Left shoulder: There are severe degenerative and bony proliferative changes of the glenohumeral joint with near zcze-yt-xkzy contact. No fracture or dislocation. There are mild degenerative changes of the right AC joint. Procedure Note Lg Haddad MD - 02/09/2016 XR SHOULDER 2 VIEWS (BILATERAL) COMPARISON: Outside CT UPPER EXTREMITY OUTSIDE (NO INTERPRETATION)09/28/2015. FINDINGS: Right shoulder: There are severe degenerative and bony proliferative changes of theright glenohumeral joint, which demonstrates rfbn-yq-rmaz contact. No fractureor dislocation. Osteocartilaginous loose bodies are present. There are mild degenerative changes of the right AC joint. Left shoulder: There are severe degenerative and bony proliferative changes of theglenohumeral joint with near nlop-fw-ohda contact. No fracture or dislocation. Thereare mild degenerative changes of the right AC joint. IMPRESSION: Severe bilateral glenohumeral osteoarthritis. us Tariq ZHUG XR UPPER EXTREMITY Final Re sult documented in this encounter Visit Diagnoses Diagnosis Pain in joint of right shoulder Pain in joint of right shoulder documented in this encounter Care Teams Catalyst Unit Operator Relationship Specialty Start Date End Date John Brady MD [address] [place] [address] [place] [address] PCP - General Internal Medicine 12/06/15 documented as of this encounter Additional Source Comments The information contained in this document represents components of the legal health record. It is not the complete legal health record.[facility]
--- OUTSIDE RECORDS SUMMARY | 2025-02-15 10:24 | XMS_ITS | Clinical Summary ---
Author Organization [facility] Address [address] [place] [address] Phone Care Team Providers Care Web Design Intern Name Role Phone John Brady MD Primary [...] 09/04/2022 12:09 PM EDT Plan of Treatment Upcoming Encounters Date Type Department Care Team (Late st Contact Info) Description 02/24/2025 9:15 AM EST Office Visit [facility] Orthopaedic Surgery Hand and Upper Extremity Service [facility], [address] [place] [address] Carrillo Phillips MD [address] [place] [address] Health Maintenance Due Date Last Done Comments [...] this topic Medical Devices Implanted Type Area Band Aid Machine Operator Device Identifier Shelf Expiration Date Model / Serial / Lot Plate Bone 420mm Button Sterile Titanium 7 Hole Ea - [id number] Implanted:Qty: 1 on 07/02/2016 by Tariq Elliott Jp, MD at [facility] [employer] Left: Shoulder SYNTHES [id number] / / Description:no lot# or exp d ate Screw Compression Screw 4.5x32 Reverse Shoulder 08 - [id number] Implanted:Qty: 1 on 07/22/2017 by Tariq Elliott Jp, MD at [facility] Right: Shoulder [employer] [id number] / / Description:no lot# or exp d ate Screw Compression Shoulder Tor# [id number] Reverse Shoulder 08 - [id number] Implanted:Qty: 1 on 07/22/2017 by Tariq Elliott Jp, MD at [facility] Right: Shoulder [employer] [id number] / / Description:no lot# or exp d ate Screw Locker Screw 4.5x23mm Reverse Shoulder 08 - [id number] Implanted:Qty: 2 on 07/22/2017 by Tariq Elliott Jp, MD at [facility] Right: Shoulder [employer] [id number] / / Description:no lot# or exp d ate Centered 36 Mm Reverse Shoulder 05 - [id number] Implanted:Qty: 1 on 07/22/2017 by Tariq Elliott Jp, MD at [facility] Right: Shoulder [employer] 01/31/2022 [id number] / [id number] / 29 Mm Diameter X 25 Mm Length Long Post Reverse Shoulder - [id number] Implanted:Qty: 1 on 07/22/2017 by Tariq Elliott Jp, MD at [facility] Right: Shoulder [employer] 08/20/2021 [id number] / [id number] / Jaw Wires Hardware Bilateral: Knee Description:S/p knee replace ments Nucleus Cementless Sz3 Simpliciti Ea - [id number] Implanted:Qty: 1 on 07/02/2016 by Tariq Elliott Jp, MD at [facility] Left: Shoulder [employer] 04/12/2021 [id number] / [id number] / Cement Bone 40gr Palacos R Plus G Single Dose Miguel/1ea - [id number] Implanted:Qty: 1 on 07/02/2016 by Tariq Elliott Jp, MD at [facility] Left: Shoulder CHRISTIAN / DIV OF [employer] 01/17/2020 [id number] / / [id number] Aequalis Perform Glenoid Cortiloc M40 Shoulder 02 Nc - [id number] Implanted:Qty: 1 on 07/02/2016 by Tariq Elliott Jp, MD at [facility] Left: Shoulder [employer] 04/24/2021 [id number] / [id number] / Head Humeral Shoulder Simpliciti 97u95xt - [id number] Implanted:Qty: 1 on 07/02/2016 by Tariq Elliott Jp, MD at [facility] Left: Shoulder [employer] 03/16/2021 [id number] / [id number] / High Offset Reversed Tray + 0 Shoulder 03 - [id number] Implanted:Qty: 1 on 07/22/2017 by Tariq Elliott Jp, MD at [facility] Right: Shoulder [employer] 05/30/2022 [id number] / [id number] / 4b Ascend Flex Standard Ptc Humeral Stem Shoulder 14 - [id number] Implanted:Qty: 1 on 07/22/2017 by Tariq Elliott Jp, MD at [facility] Right: Shoulder [employer] 06/06/2022 [id number] / [id number] / Pin Guide 2.7b835by Aequalis Perform+ - [id number] Implanted:Qty: 1 on 07/22/2017 by Tariq Elliott Jp, MD at [facility] Shoulder [employer] 05/13/2022 [id number] / / [id number] Description:no implanted 36 Diameter Revision Reversed Insert+ 6/12.5 B Shoulder 04 - [id number] Implanted:Qty: 1 on 07/22/2017 by Tariq Elliott Jp, MD at [facility] Right: Shoulder [employer] 08/23/2021 [id number] / [id number] / Insurance [place] P[place] BLUE REPLACEMENT MEDICARE PART A & [place] [address] [place] [address] MEDICARE PPO BLUE REPLACEMENT MEDICARE PART A & [place] [address] [place] [address] MEDICARE PPO BLUE REPLACEMENT [facility] MEDICARE PPO BLUE REPLACEMENT [facility] MEDICARE PPO BLUE REPLACEMENT MEDICARE PART A & B [facility] MEDICARE PPO BLUE REPLACEMENT [facility] MEDICARE PPO BLUE REPLACEMENT MEDICARE PART A & B [facility] MEDICARE PPO BLUE REPLACEMENT MEDICARE PART A & B [facility] MEDICARE PPO BLUE REPLACEMENT MEDICARE PART A & B Advance Directives For more information, please contact: [phone] (9AM - 5PM [facility], Friday-Friday) * Full Code (Presumed) (Latest Code Status on File) Date Activated Date Inactivated Comments 07/22/2017 6:25 PM 07/23/2017 3:21 PM * Full Code (Presumed) Date Activated Date Inactivated Comments 07/02/2016 6:56 PM 07/04/2016 3:02 PM Care Teams Web Design Intern Relationship Specialty Start Date End Date John Brady MD [address] [place] [address] [place] [address] PCP - General Internal Medicine 12/06/15 Additional Source Comments The information contained in this document represents components of the legal health record. It is not the complete legal health record.[facility]
--- OUTSIDE RECORDS SUMMARY | 2025-02-15 10:24 | XMS_ITS | Encounter Summary ---
Author Organization [facility] Address [address] [place] [address] Phone Care Team Providers Care Assembler Billiard Table Name Role Phone John Brady MD Primary Care Provider [phone] Encounter Details Date Type Department Care Team (Late st Contact Info) Description 09/04/2022 Procedure Pass [facility] [address] [place] [address] Social History Tobacco Use Types [...] of Assessment Author No 07/03/2016 2:34 PM EDaKrin White CNP * Patient is blind or [...] Orthopaedic Surgery Hand and Upper Extremity Service [address] [place] [address], [address] [place] [address] Carrillo Phillips MD [address] [place] [address] [email or web address] documented as of this encounter Visit Diagnoses Not on filedocumented in this encounter Care Teams Assembler Billiard Table Relationship Specialty Start Date End Date John Brady MD [address] [place] [address] [place] [address] PCP - General Internal Medicine 12/06/15 documented as of this encounter Additional Source Comments The information contained in this document represents components of the legal health record. It is not the complete legal health record.[facility]
--- OUTSIDE RECORDS SUMMARY | 2025-02-15 10:24 | XMS_ITS | Clinical Summary ---
Author Organization [facility] Address [address] [id number] Care Team Providers Care Audio Installer Name Role Phone Unavailable Primary Care Provider [...]
== END 2025-02-15 09:34 | disposition home or self-care (01) ==
PROVIDERS: PCP Student in an Organized Health Care Education/Training Program; Visit Provider Orthopaedic Surgery
DX: M19.031 Primary osteoarthritis, right wrist (principal); M18.11 Unilateral primary osteoarthritis of first carpometacarpal joint, right hand; R20.0 Anesthesia of skin; R20.2 Paresthesia of skin
CPT/HCPCS: 20605; 77002; 99214